=== PATIENT | female | born 1945 | race Caucasian/White ===

== ENCOUNTER 2017-01-31 05:40 | Inpatient (IN) ==
[2017-01-31] MEDS ORDERED: NS 1,000 ML ONE (05:44)
[2017-01-31] MEDS ORDERED: DIPRIVAN 1% 1,000 MG/100 ML BOTTLE ONE (05:48)
[2017-01-31] MEDS: DIPRIVAN 1% 1,000 MG/100 ML BOTTLE IV SCH ×7 (05:55→22:07)
[2017-01-31] MEDS ORDERED: QUELICIN ONE (05:58)
[2017-01-31] MEDS ORDERED: AMIDATE ONE (05:59)
[2017-01-31] MEDS ORDERED: AMIDATE IV ONE (06:03)
[2017-01-31] MEDS ORDERED: QUELICIN IV ONE (06:04)
[2017-01-31] MEDS ORDERED: MERREM 1 GM in NS 50 ML IV ONE (06:34)
[2017-01-31] MEDS ORDERED: VANCOMYCIN 1 GM/NS 1 GM/250 ML IVPB IV ONE (06:35)
[2017-01-31 06:36] LABS: ALLEN TEST YES; BE 1.8 mmoll (-3.0-3.0); BLOOD TYPE ARTERIAL; DRAW SITE R RADIAL; METHB 1.7 % (0.0-1.5); O2(CT) 15.7 mL/dL (15.0-23.0); PO2(98.6) 77 mmHg (60-100); SAMPLE BLOOD; SAO2 97.3 % (95.0-100.0); SRATE 15 BPM; THB 11.9 g/dL (11.5-17.4); TVOL 500 mL; pH(98.6) 7.35 (7.35-7.45)
[2017-01-31 06:37] LABS: MODALITY VENTILATOR
[2017-01-31 06:39] LABS: PCO2(98.6) 51 mmHg (35-45)
--- NOTE | 2017-01-31 06:42 | PROVIDER DOCUMENTATION ---
HPI-Respiratory General - General Chief Complaint: Shortness of Breath Stated Complaint: RESP DISTRESS/VOMITING Time Seen by Provider: 01/31/17 06:05 Source: family, EMS Allergies/Adverse Reactions: Patient Allergies Allergy/AdvReac Type Severity Reaction Status Date / Time tazobactam sodium * Allergy Severe ABDOMINAL Verified 01/31/17 06:46 [From Zosyn] PAIN Home Medications: Home Medication List Medication Instructions Recorded Confirmed Last Taken Type Albuterol Sulfate [Ventolin Hfa] 4 puff IH 4XDAY PRN PRN 06/24/12 01/31/1709/14 History Albuterol [Albuterol Neb] 2.5 mg INH Q4H PRN PRN 06/24/12 01/31/17 09/14/16 History Carvedilol [Coreg] 3.125 mg PO QHS 06/24/12 01/31/17 09/14/16 History Folic Acid 1 mg PO DAILY 06/24/12 01/31/17 09/14/16 History Furosemide [Lasix] 40 mg PO DAILY 06/24/12 01/31/17 09/14/16 History Hydrocodone/Acetaminophen [Lortab 1 each PO Q6H PRN PRN 06/24/12 01/31/17 History 10-500 Tablet] Potassium Chloride [K-Dur] 20 meq PO DAILY 06/24/12 01/31/17 09/14/16 History Tiotropium [place] Inhaler 1 puff INH RTDAILY 06/24/12 01/31/17 09/14/16 History [Spiriva] Morphine Sulfate 15 mg PO TID 11/10/14 01/31/17 09/14/16 History Doxepin [Sinequan] 10 mg PO HS 09/15/16 01/31/17 09/14/16 History Naloxegol Oxalate [Movantik] 25 mg PO DAILY 09/15/16 01/31/17 09/14/16 History Pregabalin [Lyrica] 75 mg PO QHS 09/15/16 01/31/17 09/14/16 History Alprazolam [Alprazolam] 1.5 mg PO QHS 01/31/17 01/31/17 Unknown History Esomeprazole [Nexium] 40 mg PO DAILY 01/31/17 01/31/17 Unknown History Risedronate Sodium 150 mg PO Q30D 01/31/17 01/31/17 Unknown History Roflumilast [Daliresp] 500 mcg PO DAILY 01/31/17 01/31/17 Unknown History Sertraline [Zoloft] 100 mg PO DAILY 01/31/17 01/31/17 Unknown History Tizanidine HCl [Tizanidine HCl] 8 mg PO QHS 01/31/17 01/31/17 Unknown History - History of Present Illness-Resp Nature of Presenting Problem: 71 yo WF brought in by EMS in severe respiratory failure. I spoke with her daughter who reports that the pt has Stage 4 COPD and has been on home O2 for 8 years. She has been prone to pneumonia but has never been on a ventilator. She continues to smoke. Quality of Pain: reports: none Onset/Duration: reports: 4-6 hours ago Timing: reports: still present Exposure: reports: unknown cause Current Respiratory Medication Therapy: Initiated see nurses note, Initiated albuterol/atrovent inhale, Initiated prednisone Modifying Factors: improves with: nothing Associated Symptoms: reports: shortness of breath, sinus pain, wheezing Similar Symptoms Previously?: Yes Recently seen or treated by another doctor?: No Review of Systems - Adult - REVIEW OF SYSTEMS - ADULT ROS:: unobtainable per condition Constitutional: reports: chills, fever Eyes: reports: no symptoms reported Ears, Nose, Mouth & Throat: reports: no symptoms reported Cardiovascular: reports: no symptoms reported Respiratory: reports: see HPI, chronic cough, dyspnea on exertion, excessive sputum production, shortness of breath, wheezing Gastrointestinal: reports: no symptoms reported Genitourinary: reports: no symptoms reported Musculoskeletal: reports: no symptoms reported Integumentary: reports: no symptoms reported Neurological: reports: no symptoms reported Psychiatric: reports: no symptoms reported Endocrine: reports: no symptoms reported Hematologic/Lymphatic: reports: no symptoms reported Allergic/Immunologic: reports: no symptoms reported All Other Systems: Reviewed and Negative Past History - Adult - PAST MEDICAL HISTORY-ADULT Review of Records: reports: Nursing Assessment Review, Medications Reviewed Major Childhood Illnesses: reports: denies history Cardiovascular: reports: CHF, HTN, hyperlipidemia Respiratory: reports: COPD, sleep apnea Gastrointestinal: reports: GERD Obstetrical/Gynecological: reports: denies history Genitourinary: reports: denies history Musculoskeletal: reports: denies history Neurological: reports: denies history Endocrine/Immune: reports: denies history Other Conditions: reports: denies history - PRIOR SURGERIES/PROCEDURES Surgical/Procedure History: reports: appendectomy, hysterectomy, tonsillectomy - IMMUNIZATION STATUS Childhood Immunizations: See Nurse Assessment Flu Vaccine: See Nurse Assessment - FAMILY HISTORY Family History: reviewed, not pertinent Physical Exam-General - PHYSICAL EXAM-ADULT Initial Vital Signs Reviewed: Yes - CONSTITUTIONAL General Appearance: severe distress, obtunded - EYES Eyes: PERRL/EOMI, pink conjunctivae, conjuctival exudate - HEAD, EARS, NOSE, MOUTH & THROAT HENMT: normal ENT inspection, other (edentulous) - NECK Neck: supple - RESPIRATORY Respiratory: respiratory distress, accessory muscle use, crackles, rales, rhonchi, wheezing - CARDIOVASCULAR Cardiovascular: other (unable to auscultate) - LYMPHATIC Lymphatic: no adenopathy - MUSCULOSKELETAL Back Exam: normal inspection Peripheral Pulses: radial (R): 3+, radial (L): 3+ - SKIN Integumentary: cyanosis - NEUROLOGIC Neurologic: grossly normal Progress - PLAN OF CARE/RESULTS Progress/Plan/Lab Results: Laboratory Results - last 24 hr 01/31/17 01/31/17 01/31/17 05:40 05:40 05:40 WBC 4.48 L RBC 4.93 Hgb 13.7 Hct 44.6 MCV 90.5 MCH 27.8 MCHC 30.7 L RDW Std Deviation 14.7 H Plt Count 189 MPV 11.1 H Immature Gran % (Auto) 0.0 Neut % (Auto) 72.4 Lymph % (Auto) 24.1 Mclennan % (Auto) 3.1 Eos % (Auto) 0.4 Baso % (Auto) 0.0 Immature Gran # (Auto) 0.00 Neut # (Auto) 3.24 Lymph # (Auto) 1.08 L Mclennan # (Auto) 0.14 Eos # (Auto) 0.02 Baso # (Auto) 0.00 Segmented Neutrophils 40 L Band Neutrophils 24 H Lymphocytes 32 Monocytes 4 PT INR D-Dimer Specimen Type Sample Site pH pCO2 pO2 HCO3 Base Excess Oxyhemoglobin ABG O2 Sat (Calculated) ABG O2 Saturation ABG Carboxyhemoglobin ABG Methemoglobin [place] Test A-a O2 Difference Total Hemoglobin Lactate Blood Gas Modality Vent Mode Spontaneous Rate FiO2 % Tidal Volume PEEP Sodium 142 Potassium 3.6 Chloride 100 Carbon Dioxide 30 Anion Gap 12 BUN 13 Creatinine 0.5 Estimated GFR/1.73 m2 > 60 BUN/Creatinine Ratio 26 Glucose 112 H Calculated Osmolality 284 Calcium 9.0 Total Bilirubin 0.37 AST 11 ALT 7 L Alkaline Phosphatase 79 Troponin T [id number] Pept Total Protein 6.9 Albumin 3.9 Globulin 3.0 Albumin/Globulin Ratio 1.3 Plasma Lactate 2.5 H Urine Source Urine Color Urine Turbidity Urine pH Ur Specific [place] Urine Protein Ur Glucose (Stick) Ur Ketones (Stick) Urine Blood Urine Nitrite Urine Bilirubin Urobilinogen Dipstick Urine Leukocytes Urine WBC (Auto) Urine RBC (Auto) U Epithel Cells (Auto) Urine Bacteria (Auto) 01/31/17 01/31/17 01/31/17 05:40 05:40 05:40 WBC RBC Hgb Hct MCV MCH MCHC RDW Std Deviation Plt Count MPV Immature Gran % (Auto) Neut % (Auto) Lymph % (Auto) Mclennan % (Auto) Eos % (Auto) Baso % (Auto) Immature Gran # (Auto) Neut # (Auto) Lymph # (Auto) Mclennan # (Auto) Eos # (Auto) Baso # (Auto) Segmented Neutrophils Band Neutrophils Lymphocytes Monocytes PT INR D-Dimer 0.98 H Specimen Type Sample Site pH pCO2 pO2 HCO3 Base Excess Oxyhemoglobin ABG O2 Sat (Calculated) ABG O2 Saturation ABG Carboxyhemoglobin ABG Methemoglobin [place] Test A-a O2 Difference Total Hemoglobin Lactate Blood Gas Modality Vent Mode Spontaneous Rate FiO2 % Tidal Volume PEEP Sodium Potassium Chloride Carbon Dioxide Anion Gap BUN Creatinine Estimated GFR/1.73 m2 BUN/Creatinine Ratio Glucose Calculated Osmolality Calcium Total Bilirubin AST ALT Alkaline Phosphatase Troponin T < 0.010 Lep-S-Mbvqjzbpgfc Pept 91 Total Protein Albumin Globulin Albumin/Globulin Ratio Plasma Lactate Urine Source Urine Color Urine Turbidity Urine pH Ur Specific [place] Urine Protein Ur Glucose (Stick) Ur Ketones (Stick) Urine Blood Urine Nitrite Urine Bilirubin Urobilinogen Dipstick Urine Leukocytes Urine WBC (Auto) Urine RBC (Auto) U Epithel Cells (Auto) Urine Bacteria (Auto) 01/31/17 01/31/17 01/31/17 05:40 06:01 06:09 WBC RBC Hgb Hct MCV MCH MCHC RDW Std Deviation Plt Count MPV Immature Gran % (Auto) Neut % (Auto) Lymph % (Auto) Mclennan % (Auto) Eos % (Auto) Baso % (Auto) Immature Gran # (Auto) Neut # (Auto) Lymph # (Auto) Mclennan # (Auto) Eos # (Auto) Baso # (Auto) Segmented Neutrophils Band Neutrophils Lymphocytes Monocytes PT 10.2 INR 0.97 D-Dimer Specimen Type ARTERIAL Sample Site R RADIAL pH 7.35 pCO2 51 H* pO2 77 HCO3 26.2 H Base Excess 1.8 Oxyhemoglobin 93.2 L ABG O2 Sat (Calculated) 15.7 ABG O2 Saturation 97.3 ABG Carboxyhemoglobin 2.40 ABG Methemoglobin 1.7 H [place] Test YES A-a O2 Difference 572.0 Total Hemoglobin 11.9 Lactate 1.90 Blood Gas Modality VENTILATOR Vent Mode A/C Spontaneous Rate 15 FiO2 % 100.0 Tidal Volume 500 PEEP 10.0 Sodium Potassium Chloride Carbon Dioxide Anion Gap BUN Creatinine Estimated GFR/1.73 m2 BUN/Creatinine Ratio Glucose Calculated Osmolality Calcium Total Bilirubin AST ALT Alkaline Phosphatase Troponin T Peh-U-Pdgsjrxbdzv Pept Total Protein Albumin Globulin Albumin/Globulin Ratio Plasma Lactate Urine Source CLEAN CATCH Urine Color YELLOW Urine Turbidity CLEAR Urine pH 6.0 Ur Specific [place] 1.021 Urine Protein NEGATIVE Ur Glucose (Stick) NEGATIVE Ur Ketones (Stick) NEGATIVE Urine Blood NEGATIVE Urine Nitrite NEGATIVE Urine Bilirubin NEGATIVE Urobilinogen Dipstick NORMAL Urine Leukocytes NEGATIVE Urine WBC (Auto) <10 Urine RBC (Auto) <10 U Epithel Cells (Auto) <10 Urine Bacteria (Auto) NEGATIVE Orders Category Date Time Status Admit - [facility] Routine AdmDCTranf 01/31/17 08:28 Ordered Activity - Strict Bedrest ORDERED Care 01/31/17 08:28 Active DVT/PE Risk Assess/Protocol [QM] ORDERED Care 01/31/17 08:28 Completed Elevate Head of Bed DIRECTED Care 01/31/17 08:28 Active Paez Cath Insertion ORDERED Care 01/31/17 08:28 Completed Intake and Output-Strict Q 8-HR ASSESS Care 01/31/17 08:28 Active Nursing- Assist w/ IS as order ORDERED Care 01/31/17 08:28 Completed Nursing- MD Consult Request ROUTINE Care 01/31/17 08:28 Completed Turn, Cough and Deep Breathe Q2HR Care 01/31/17 08:28 Completed Vital Signs Order ROUTINE Care 01/31/17 08:28 Completed Physician/Provider Consults Routine Cons 01/31/17 08:28 Ordered NPO Diet 01/31/17 07:43 Active CHEST-PORTABLE [RAD] DAILY Exams 02/01/17 06:00 Ordered CHEST-PORTABLE [RAD] DAILY Exams 02/02/17 06:00 Ordered CHEST-PORTABLE [RAD] Stat Exams 01/31/17 05:49 Completed ABG [RESP] DAILY Lab 02/01/17 06:00 Ordered ABG [RESP] DAILY Lab 02/02/17 06:00 Ordered ABG [RESP] Routine Lab 01/31/17 06:09 Completed BASIC METABOLIC PANEL [CHEM] DAILY Lab 02/01/17 06:00 Ordered BASIC METABOLIC PANEL [CHEM] DAILY Lab 02/02/17 06:00 Ordered BASIC METABOLIC PANEL [CHEM] DAILY Lab 02/03/17 06:00 Ordered BLOOD CULTURE [BLDCUL] Stat Lab 01/31/17 07:15 Results CBC WITH ELECTRONIC DIFF [HEME] Stat Lab 01/31/17 05:40 Completed CBC WITH NO DIFF [HEME] DAILY Lab 02/01/17 06:00 Ordered CBC WITH NO DIFF [HEME] DAILY Lab 02/02/17 06:00 Ordered CBC WITH NO DIFF [HEME] DAILY Lab 02/03/17 06:00 Ordered COMPREHENSIVE METABOLIC PANEL [CHEM] Stat Lab 01/31/17 05:40 Completed D-DIMER [CHEM] Stat Lab 01/31/17 05:40 Completed LACTATE, PLASMA [CHEM] Stat Lab 01/31/17 05:40 Completed LACTATE, PLASMA [CHEM] Timed Lab 01/31/17 09:37 Completed LEGIONELLA AG URINE [[place]] Stat Lab 01/31/17 07:51 Received MAGNESIUM [CHEM] DAILY Lab 02/02/17 06:00 Ordered MAGNESIUM [CHEM] DAILY Lab 02/03/17 06:00 Ordered MAGNESIUM [CHEM] DAILY Lab 02/04/17 06:00 Ordered PRO B-NATRIURETIC PEPTIDE Stat Lab 01/31/17 05:40 Completed PROTIME WITH INR [COAG] Stat Lab 01/31/17 05:40 Completed SPUTUM CULTURE WITH GRAM STAIN [RM] Routine Lab 01/31/17 08:58 Results STREP PNEUMO AG URINE [[place]] Stat Lab 01/31/17 07:51 Received TROPONIN T Stat Lab 01/31/17 05:40 Completed UA NIMS W/REFLEX CULT [URINALYSIS] Stat Lab 01/31/17 06:01 Completed 0.9% Sodium Chloride Inj [Ns] 1,000 ml Med 01/31/17 05:44 Discontinued .ROUTE As Directed 0.9% Sodium Chloride Inj [Ns] 1,000 ml Med 01/31/17 06:57 Discontinued IV 999 mls/hr Acetaminophen [Tylenol] Med 01/31/17 07:39 Discontinued 650 mg GA NOW ONE Albuterol 2.5MG/Ipratrop 0.5MG [Duoneb (A & A)] Med 01/31/17 06:50 Discontinued 3 ml INH NOW ONE Enoxaparin [Lovenox] Med 01/31/17 08:28 Active 40 mg SUBQ Q24H Etomidate [Amidate] Med 01/31/17 06:03 Discontinued 20 mg IV NOW ONE Etomidate [Amidate] Med 01/31/17 05:59 Discontinued 40 mg .ROUTE .STK-MED ONE Levofloxacin 750 mg/D5w [Levaquin 750 mg/D5w] Med 01/31/17 07:30 Active 750 mg in 150 ml IV Q24H Meropenem [Merrem] 1 gm Med 01/31/17 06:34 Discontinued 0.9% Sodium Chloride Inj [Ns] 50 ml IV NOW Meropenem [Merrem] 1 gm Med 01/31/17 08:28 Active 0.9% Sodium Chloride Inj [Ns] 50 ml IV Q8H Pharmacy Order [Vancomycin IV Per Pharmacy] Med 01/31/17 08:28 Active 1 each MISC DIRECTED Propofol [Diprivan 1%] Med 01/31/17 05:48 Discontinued 1,000 mg in 100 ml .ROUTE As Directed Propofol [Diprivan 1%] Med 01/31/17 06:07 Active 1,000 mg in 100 ml IV As Directed Succinylcholine [Quelicin] Med 01/31/17 06:04 Discontinued 125 mg IV NOW ONE Succinylcholine [Quelicin] Med 01/31/17 05:58 Discontinued 200 mg .ROUTE .STK-MED ONE Vancomycin 1 gm/Ns Med 01/31/17 06:35 Discontinued 1 gm in 250 ml IV NOW Aerosol Treatments Routine Oth 01/31/17 06:51 Completed Aerosol Treatments Routine Oth 01/31/17 08:28 Completed Aerosol Treatments Stat Oth 01/31/17 06:51 Completed Incentive Spirometer Routine Oth 01/31/17 08:28 Completed Pulse Oximetry Routine Ot 01/31/17 08:28 Completed Telemetry [OM.EQ] Routine Ot 01/31/17 08:28 Active Transfer/Admit Order [TRANSFER] Routine Transfer 01/31/17 07:40 Completed Result Diagrams: 01/31/17 05:40 01/31/17 05:40 - XRAY 1 XRAY Study: Chest Impression: Abnormal, See EMR Report (Good tube pleacement. Dense pneumonia involving almost the entire rt lung) - CONSULTS/PCP/HOSPITALIST Notification #1 *Consult/PCP/Hospitalist*: Dr Walter Time Discussed: 07:23 Consult Disposition: Admit - CHANGE OF SHIFT REPORT (ED Provider) Items Pending: Labs, Other (abg) Procedures - INTUBATION Time of Intubation: 05:40 Mallampati Class: 1 Intubation Method: orotracheal Equipment: ETT Tube Size (cm): 7.5 Pretreated with 100% Oxygen?: Yes Breath Sounds after Intubation: equal ETT Primary Tube Confirmation: Capnometry CO2 Change, Direct Visualization, Chest Rise and Fall, Tube placement verified on XRAY Intubation Complications: no complications Vent Settings: See Respiratory Therapy Notes Departure - Departure Time of Disposition Decision: 07:20 DIAGNOSIS: Respiratory failure requiring intubation Disposition: ADMITTED INPATIENT 09 Certified Medical Emergency: Emergent Condition: Critical - Critical Care Note This patient required my direct & personal management of CC.: Yes Total Time (mins): 75 Critical Care Statement: This patient required my direct personal management to treat or rule out processes, the absence of which, could potentiallly result in sudden, clinically significant life or limb threatening deterioration.
[2017-01-31 06:46] LABS: MANUAL DIFF NEEDED? NO
[2017-01-31 06:47] LABS: URINE CULTURE NEEDED? NO; URINE MICRO REVIEW NEEDED? NO; URINE SOURCE CLEAN CATCH
[2017-01-31] MEDS ORDERED: DUONEB (A & A) INH ONE (06:50)
[2017-01-31 06:56] LABS: BILIRUBIN URINE NEGATIVE (NEGATIVE); BLOOD URINE NEGATIVE (NEGATIVE); COLOR YELLOW; GLUCOSE URINE NEGATIVE (NEGATIVE); LEUKOCYTES URINE NEGATIVE (NEGATIVE); NITRITE URINE NEGATIVE (NEGATIVE); PROTEIN URINE NEGATIVE (NEGATIVE); SP GRAVITY URINE 1.021; TURBIDITY URINE CLEAR (CLEAR); UROBILINOGEN URINE NORMAL (NORMAL)
[2017-01-31 06:56] LABS: EOS# 0.02 X1000 (0.0-0.7); EOS% 0.4 % (0.0-10.0); HEMATOCRIT 44.6 % (37.0-47.0); HEMOGLOBIN 13.7 g/dL (12.0-16.0); LYMPH# 1.08 X1000 (1.2-3.4); LYMPH% 24.1 % (20.5-51.1); MCH 27.8 PG (27-31); MCHC 30.7 g/dL (33-37); MCV 90.5 FL (81-99); MONO# 0.14 X1000 (0.11-0.59); MONO% 3.1 % (1.7-9.3); MPV 11.1 FL (7.4-10.4); NEUT% 72.4 % (42.2-75.2); PLT 189 X1000 (130-400); RBC 4.93 XMIL (4.2-5.4)
[2017-01-31] MEDS ORDERED: NS 1,000 ML IV ONE (06:57)
[2017-01-31 06:58] LABS: UR EPITHELIAL CELLS <10 /HPF (<10); URINE BACTERIA NEGATIVE /HPF; URINE RBC <10 /HPF (<10); URINE WBC <10 /HPF (<10)
[2017-01-31 07:07] LABS: INR 0.97; PROTIME 10.2 Seconds (9.2-11.7)
[2017-01-31 07:14] LABS: AGAP 12; ALBUMIN 3.9 g/dL (3.5-5.0); ALKALINE PHOSPHATASE 79 U/L (32-104); BUN 13 mg/dL (8-22); CHLORIDE 100 mmol/L (98-107); COSMO 284; GOT 11 U/L (10-30); GPT 7 U/L (10-36); POTASSIUM 3.6 mmol/L (3.5-5.1); SODIUM 142 mmol/L (136-145); TCO2 30 mmol/L (25-35); TOTAL BILIRUBIN 0.37 mg/dL (0.20-1.00); TOTAL PROTEIN 6.9 g/dL (6.3-8.3)
[2017-01-31] MEDS ORDERED: TYLENOL PR ONE (07:39)
[2017-01-31] MEDS ORDERED: VANCOMYCIN IV PER PHARMACY MISC SCH (08:28)
[2017-01-31] MEDS ORDERED: DUONEB (A & A) INH PRN (08:28)
[2017-01-31 08:32] LABS: BANDS 24 % (0-1); LYMPHS 32 % (21-51); MONO 4 % (1-9)
--- NOTE | 2017-01-31 08:54 | Diag Imaging Result Document ---
PROCEDURE NAME: CHEST-PORTABLE - 01/31/2017 SINGLE FRONTAL RADIOGRAPH OF THE CHEST: COMPARISON: 01/21/2017. FINDINGS: There has been interval placement of an ET tube. The tip projects over the trachea and above the dawson at about the T5 level. Since the previous study, there has been development of diffuse dense infiltrate throughout the right lung. Mild left basilar infiltrate versus atelectasis is approximately stable. There is an NG tube in place with the tip projecting below the diaphragm and out of the field of view, assumed to be in the stomach. Cardiac silhouette is essentially stable. IMPRESSION: 1. Interval intubation and placement of NG tube as described. 2. Interval development of a dense consolidation throughout the entire right lung. 3. Essentially stable milder opacity at the left lung base.
[2017-01-31] MEDS: PROTONIX IV SCH (09:44)
[2017-01-31] MEDS: LOVENOX SUBQ SCH (09:44)
[2017-01-31] MEDS: SODIUM CHLORIDE 0.9% INJ SCH (09:44)
[2017-01-31] MEDS: MERREM 1 GM in NS 50 ML IV SCH ×3 (09:44→23:33)
[2017-01-31] MEDS: LEVAQUIN 750 MG/D5W 750 MG/150 ML IVPB IV SCH (09:44)
[2017-01-31] MEDS: NICODERM PATCH TD SCH (09:44)
[2017-01-31] MEDS: ZOLOFT NG SCH (09:46)
[2017-01-31] MEDS: LEVOPHED 8 MG in D5 1/2 NS 250 ML IV SCH ×2 (11:10→19:22)
[2017-01-31] MEDS: DUONEB (A & A) INH SCH ×4 (11:25→23:05)
--- NOTE | 2017-01-31 12:05 | HISTORY AND PHYSICAL ---
PRIMARY CARE PHYSICIAN: Dr. Guido Black. CHIEF COMPLAINT: Acute respiratory failure. HISTORY OF PRESENT ILLNESS: Mrs. Bermudez is a 71-year-old female with a history of COPD, noncompliant with oxygen, continued nicotine dependence, anxiety and depression , and osteoporosis, who presents to the ER today in acute respiratory failure. The patient is intubated and sedated at this time and is unable to give any type of history. Her family who is at the bedside states that a little over a week ago. She went to her PCP and was prescribed antibiotics for "rattling in the chest." However, she has been doing fine over the past week, essentially in her normal state of health. Yesterday she went shopping and had no real complaints. This morning, early around 1 a.m. she woke up gasping for air and was confused per family report. They called 911 and the patient was brought to the ER. Apparently O2 saturations initially were anywhere from 50-70. She was promptly intubated. X-ray of the chest showed complete whiteout of the right lying, highly suspicious for pneumonia. Interestingly, her laboratory data is largely unremarkable. She does have a very mildly elevated lactic acid at 2.5 and her white count is a little bit low. Otherwise nothing acute. She does have a fever. So given her laboratory data and diagnostic criteria, she meets criteria for severe sepsis. Currently, her blood pressure is 90/56 and she is receiving IV fluids. However, if she continues to drop her blood pressure we may need to add pressors. PAST MEDICAL HISTORY: 1. COPD. 2. Noncompliance with oxygen therapy. 3. Sleep apnea, noncompliant with CPAP. 4. Continued nicotine dependence. 5. Anxiety and depression. 6. Osteoporosis. 7. Chronic pain. 8. GERD. 9. Question of congestive heart failure but a normal echo was noted in August of last year. PAST SURGICAL HISTORY: Hysterectomy, appendectomy. SOCIAL HISTORY: Patient continues to smoke, is unclear exactly how much but she is also using electronic cigarette. There is no history of alcohol or illicit drug use. She lives at home with her and daughter. REVIEW OF SYSTEMS: Unable to obtain. ALLERGIES: Zosyn. HOME MEDICATIONS: Currently being compiled. PHYSICAL EXAMINATION: VITAL SIGNS: Blood pressure is 90/56, heart rate is 73, respiratory rate 18, O2 saturations 92% on 100% mechanical ventilation, temperature is 102 degrees Fahrenheit. GENERAL: This is a well-developed, well-nourished, female, lying in hospital bed, intubated and sedated. NEUROLOGIC: The patient is intubated and sedated. HEENT: Head is atraumatic and normocephalic. Her pupils are equal, round, and reactive to light. Oral mucosa is moist. Trachea is midline. ET and NG tube are noted. NECK: Supple. CHEST: Very diminished throughout, right greater than left, with rhonchi heard over the entirety of the right lung. CV: Regular rate and rhythm. S1, S2 is noted. No murmurs, gallops, clicks, or rubs. GI: Soft and nondistended. Bowel sounds are hypoactive. EXTREMITIES: Without edema, clubbing, or cyanosis. Pedal pulses are 1+ bilaterally. There is no edema, clubbing, or cyanosis. DIAGNOSTIC DATA: Chest x-ray shows whiteout of the right lung compatible with patchy infiltrate/pneumonia. WBC is 4.4, hemoglobin 13.7, hematocrit 44.6, platelet count 189,000. PT 10.2, INR 0.97. D-dimer 0.98. ABG on 100% mechanical ventilation, pH 7.35, CO2 51, O2 77, bicarb 26. Sodium 142, potassium 3.6, chloride 100, CO2 30, anion gap 12, BUN 13, creatinine 0.5, glucose 112. LFTs within normal limits. Troponin and proBNP are negative. Lactic acid 2.5. UA is negative for acute process. ASSESSMENT AND PLAN: 1. Acute hypoxic respiratory failure: Secondary to severe pneumonia. The patient is intubated and sedated. We will consult Dr. Garcia for vent management. She will be going to the ICU where we will continue with broad-spectrum antibiotics, breathing treatments , and oxygen, as well as aggressive pulmonary toilet. 2. Sepsis: Patient meets criteria with fever, leukopenia, lactic acidosis, and source of pneumonia. We will continue with broad-spectrum antibiotics. Continue with IV fluids and IV pressors as needed. We will trend her lactic acidosis until less than 2. 3. Community-acquired pneumonia: As above. 4. Chronic obstructive pulmonary disease: We will continue treatment as outlined above and we will hold off on steroids for now. Dr. Garcia with pulmonary has been consulted. 5. We will check daily ABGs and chest x-rays. Add Lovenox for deep vein thrombosis prophylaxis and Protonix for gastrointestinal prophylaxis. Further recommendations to follow. CRITICAL CARE TIME: With this patient is 45 minutes. Dictated by BENY Nicole for Kash Walter MD cc: BENY Nicole MD Seen and examined the patient. I agree with the above plan. Triple antibiotic therapy Vent Support Discussed care with the Sister who was at the bedside at the time I saw the patient in the ICU. Poor prognosis MTDD
--- NOTE | 2017-01-31 14:25 | CONSULTATION ---
DATE OF CONSULTATION: 01/31/2017 PRIMARY CARE PHYSICIAN: Guido Black MD CONSULTING PHYSICIAN: Hospitalist Alec Radford REASON FOR CONSULTATION: Respiratory failure and pneumonia. Pulmonary critical care management. IMPRESSION: 1. Acute on chronic respiratory failure. 2. Right lung consolidated pneumonia. 3. Septic shock secondary to above. 4. Chronic obstructive pulmonary disease. 5. Tobacco abuse. 6. History of anxiety, depression and chronic pain syndrome. Opiate dependent. 7. Obstructive sleep apnea, on BiPAP at home. RECOMMENDATIONS: Ms. Bermudez will continue to be monitored closely in the ICU on mechanical ventilation. We will continue to monitor her cultures as well as give her broad spectrum antibiotics. Continue inhaled beta agonist. She is on appropriate DVT prophylaxis and GI prophylaxis. Wean her oxygenation as tolerated. We will follow along with you closely. HISTORY OF PRESENT ILLNESS: This is a 71-year-old female who apparently came into the emergency room in acute respiratory failure. She was promptly intubated with saturations apparently being in the 50s to 70s at home. Per her family report and the records, she states she was sick over a week ago and went to her primary care physician for rattling in her chest. She is on home oxygen and home bronchodilators as well as home BiPAP. She then apparently became confused and had shortness of breath and EMS was called as mentioned. She now is hypotensive in the ICU. She is responsive, even on propofol drip. She has IV hydration as well as antibiotics and is oxygenating on 100% oxygen on mechanical ventilation. PAST MEDICAL HISTORY: 1. COPD, noncompliance with oxygen therapy. 2. Tobacco abuse. 3. Chronic pain. 4. Osteoporosis. 5. GERD. 6. Anxiety and depression. 7. Obstructive sleep apnea and noncompliant with CPAP at home. ALLERGIES: Zosyn. HOME MEDICATIONS: Albuterol 4 times a day, nebulizers 4 times a day, Coreg 3.125 daily, folic acid 1 mg daily, Lasix 40 mg daily, hydrocodone 10 one tablet approximately 5 times a day, Prilosec 20 mg b.i.d., pravastatin 40 mg nightly at bedtime, potassium 20 mEq daily, Spiriva 1 inhaled capsule daily, morphine 15 mg p.o. t.i.d., Zoloft 100 mg daily, Doxepin 10 mg nightly at bedtime, gabapentin 600 mg t.i.d., Boniva 150 mg every 30 days. PAST SURGICAL HISTORY: She has had an appendectomy and a hysterectomy. SOCIAL HISTORY: She lives with her and daughter at home. She continues to smoke cigarettes as well as electronic cigarettes. No alcohol. She is on chronic pain medications as mentioned. REVIEW OF SYSTEMS: Unable to obtain. The patient is sedated on the ventilator. PHYSICAL EXAMINATION: She is arousable and follows commands, on the ventilator as mentioned. She has a temperature of 99.3, pulse 80, blood pressure 106/67, respiratory rate 24. HEENT: She is atraumatic and normocephalic. PERRLA. Pupils are 5+ and a brisk reaction. Oral mucosa is without erythema. There is an ET tube in position. There is an NG tube in. The neck is supple. No JVD. No lymphadenopathy. Chest: Bilateral equal breath sounds with scattered rhonchi on the right chest. Clear on the left. Cardiac: Regular rate and rhythm without appreciable murmur, gallop or rub. Abdomen: Soft, nontender. Positive bowel sounds x4. Extremities revealed no cyanosis, clubbing or edema. There are 2+ pedal pulses and 2+ radial pulses. Skin: Warm and dry. Neurologic: She does arouse off propofol and moves all 4. DIAGNOSTIC DATA: Chest radiograph reviewed shows the ET tube in position. There is a right lung consolidation. NG tube in position. No pneumothorax. The ABG shows pH of 7.35, CO2 of 51, paO2 of 77 on PRVC rate of 15 and 100%. Sodium is 142, potassium 3.6, chloride 100, CO2 of 30, BUN of 13, creatinine 0.5, glucose 112. The white count is 4.4, hemoglobin 13.7, hematocrit 44.6 and platelets 189. She had a negative flu A and B swab. The blood cultures and sputum cultures are pending. Her rhythm at the bedside is normal sinus rhythm. PT is 10.2. INR is 0.9. D-dimer is 0.9. UA is negative. Troponin less than 0.01. ProBNP is 91. Albumin is 3.9, lactate 2.7. This is a merely a scribe of Dr. Nam Garcia's assessment and plan of care. We will follow along with you closely. This likely could represent community acquired versus an aspiration pneumonia with her high amount of narcotics and sleep apnea noncompliance. Dictated by BENY Kraft for Nam Garcia MD cc: Nam Garcia MD
[2017-01-31] MEDS: NS 1,000 ML IV SCH ×2 (15:02→23:33)
[2017-01-31] MEDS: TYLENOL PO PRN ×2 (15:27→19:24)
[2017-01-31] MEDS: XANAX PO SCH (20:33)
[2017-02-01] MEDS: TYLENOL PO PRN ×2 (00:33→19:59)
[2017-02-01] MEDS: DIPRIVAN 1% 1,000 MG/100 ML BOTTLE IV SCH ×7 (02:08→23:38)
[2017-02-01] MEDS: DUONEB (A & A) INH SCH ×6 (03:48→23:05)
[2017-02-01 04:45] LABS: ALLEN TEST YES; BE 0.1 mmoll (-3.0-3.0); BLOOD TYPE ARTERIAL; DRAW SITE R RADIAL; METHB 1.6 % (0.0-1.5); MODALITY VENTILATOR; O2(CT) 16.5 mL/dL (15.0-23.0); PCO2(98.6) 49 mmHg (35-45); PO2(98.6) 104 mmHg (60-100); SAMPLE BLOOD; SAO2 98.9 % (95.0-100.0); SRATE 15 BPM; THB 12.1 g/dL (11.5-17.4); TVOL 500 mL; pH(98.6) 7.34 (7.35-7.45)
[2017-02-01 06:15] LABS: HEMATOCRIT 40.8 % (37.0-47.0); HEMOGLOBIN 12.8 g/dL (12.0-16.0); MCH 28.3 PG (27-31); MCHC 31.4 g/dL (33-37); MCV 90.1 FL (81-99); MPV 11.4 FL (7.4-10.4); RBC 4.53 XMIL (4.2-5.4)
[2017-02-01 06:17] LABS: AGAP 15; BUN 15 mg/dL (8-22); CALCIUM 7.8 mg/dL (8.8-10.2); CHLORIDE 108 mmol/L (98-107); COSMO 291; POTASSIUM 3.1 mmol/L (3.5-5.1); SODIUM 146 mmol/L (136-145); TCO2 23 mmol/L (25-35)
[2017-02-01] MEDS: VANCOMYCIN 1 GM/NS 1 GM/250 ML IVPB IV SCH (08:09)
[2017-02-01] MEDS: LEVAQUIN 750 MG/D5W 750 MG/150 ML IVPB IV SCH (08:09)
[2017-02-01] MEDS: NS 1,000 ML IV SCH (08:09)
[2017-02-01] MEDS: MERREM 1 GM in NS 50 ML IV SCH ×2 (08:09→17:01)
[2017-02-01] MEDS: NICODERM PATCH TD SCH (08:10)
[2017-02-01] MEDS: ZOLOFT NG SCH (08:10)
[2017-02-01] MEDS: LOVENOX SUBQ SCH (08:10)
[2017-02-01] MEDS: PROTONIX IV SCH (08:10)
[2017-02-01] MEDS: SODIUM CHLORIDE 0.9% INJ SCH (08:10)
[2017-02-01] MEDS: D5 1/2 NS 1,000 ML IV SCH ×2 (09:37→23:39)
--- NOTE | 2017-02-01 09:48 | Diag Imaging Result Document ---
PROCEDURE NAME: CHEST-PORTABLE - 02/01/2017 PORTABLE CHEST X-RAY, 02/01/2017: COMPARISON: 01/31/2017. FINDINGS: Stable endotracheal tube and nasogastric tube in good position. There is significant improvement in the dense alveolar infiltrate throughout the right lung. The left lung remains essentially clear. Stable significant cardiomegaly. IMPRESSION: Improvement from prior.
--- NOTE | 2017-02-01 19:24 | PROGRESS NOTE ---
DATE: 02/01/2017 SUBJECTIVE: Today Ms. Bermudez continues to be critical. She is under the ventilator. I was able to say speak with the son who uses a front wheel walker. OBJECTIVE: Vital signs: Blood pressure is 132/83, pulse of 98, respirations 20 , temperature 97.5. Patient was saturating 98% on the ventilator. General: Ms. Bermudez is a 71-year-old female. She is in bed, under the vent, not distressed. HEENT: Mucosa is pink and moist. Anicteric. Acyanotic. Neck: Supple. Chest: Air entry is bilaterally reduced. There is transmitted sound from the ventilator. There are some crackles, more on the right lateral aspect of the lung warner. Abdomen: Soft. Extremities: No pedal edema. [employer] : Patient is intubated and sedated but pupils equal and they are reactive to light and patient has very good cough reflex. LABORATORY DATA: WBC is 11.5, hemoglobin is 12.8, platelet count of 162,000. Chemistry is reviewed. Sodium is 146, potassium is 3.1, chloride is 108, bicarb is 23. Lactate plasma is 1.7. IMAGING: Chest x-ray which was done today shows some improvement from prior. ASSESSMENT: 1. Acute hypoxemic respiratory failure patient continues to be on the vent. 2. Severe right side pneumonia. 3. Sepsis secondary to pneumonia. 4. History of chronic obstructive pulmonary disease. 5. History of narcotic abuse. 6. Mild hypokalemia. We will replace this. 7. Hyperchloremia. I think is due to the baseline fluid fro hydration. I will change this to D5 half-normal saline at 75 mL/hour and pay critical attention to her cardiopulmonary status. We will recheck on her labs in the morning to make the pertinent adjustments. I will also go ahead and consult Infectious Disease to evaluate and give us some guidance on her antibiotic use. For now, patient is on levofloxacin 750 daily. Today is day 2. Vancomycin, today is day 2 and meropenem, today is day 2. We will be pending on Infectious Disease final recommendations on this. Critical time spent 45 minutes. cc: MD JENIFER Silvestre
[2017-02-01] MEDS: XANAX PO SCH (20:00)
--- NOTE | 2017-02-01 20:33 | CONSULTATION ---
DATE OF CONSULTATION: 02/01/2017 CONCLUSION: The patient has underlying very severe COPD and is noncompliant. She is admitted to the hospital with a severe a right lung pneumonia. Fortunately on today's x-ray it appears that the infiltrate is improving. RECOMMENDATIONS: I agree with the decision to treat the patient with broad-spectrum antibiotic coverage that she is on right now. I also agree with getting the pneumococcal and Legionella urinary antigens. I have ordered immunoglobulin levels. DISCUSSION: The patient is intubated and unable to supply a history. The information I got was taken mainly from a review of the data in the computer. The patient was admitted to the hospital with acute respiratory failure. She is intubated and sedated now. Her CBC shows a white count of 1150, hemoglobin 12.8, platelet count 162,000. Blood gases show a pH of 7.34, a PO2 of 104, pCO2 of 49. Creatinine is 0.6. GFR is greater than 60. Sputum cultures are growing thus far normal aubrie. A swab for influenza is negative. Urinalysis showed no white cells or bacteria. Liver function studies are normal. The patient's chest x-ray today shows improvement in the right lung infiltrate. The patient's creatinine today is 0.6 with a GFR of greater than 60. PATIENT'S PAST MEDICAL HISTORY: Positive for COPD, noncompliance with oxygen therapy, sleep apnea with noncompliance with CPAP, continued cigarette smoking, anxiety and depression, osteoporosis, chronic pain, gastroesophageal reflux disease, possible congestive heart failure, although in July of last year she had a normal echocardiogram. PAST SURGICAL HISTORY: Positive for labor and delivery, hysterectomy and appendectomy. SOCIAL HISTORY: The patient smokes cigarettes. She does not drink alcoholic beverages or abuse drugs. She lives at home with her and daughter. ALLERGIES: She is allergic to Zosyn. HOME MEDICATIONS INCLUDE THE FOLLOWING: Tizanidine, Zoloft, Spiriva inhaler, Daliresp, risedronate, Lyrica, potassium, Movantik, morphine, hydrocodone, Lasix. Folic acid, Nexium, Sinequan, Coreg, alprazolam, albuterol and Ventolin inhalers. PHYSICAL EXAMINATION: Vital Signs: Temperature is 98.6 degrees, pulse 95, respirations 22, blood pressure 124/82. The patient weighs 153 pounds. Generally: This is a chronically ill- appearing, elderly female. She is intubated and sedated. Head, eyes, ears, nose, and throat: Orotracheal tube is in place. Neck: No meningismus. Thorax: Patient has an increased AP diameter of the chest. Lungs: Clear to auscultation, except for few rales heard on the right side. The left side was clear. Cardiovascular: Heart rate is regular. Abdomen: Soft and nontender. Neurologic: Patient is obtunded. She is sedated. There is no tremor. Integument: No rash noted. Thank you for the consult. cc: John Garcia MD
[2017-02-02] MEDS: MERREM 1 GM in NS 50 ML IV SCH ×3 (01:01→15:28)
[2017-02-02] MEDS: DUONEB (A & A) INH SCH ×6 (02:50→23:00)
[2017-02-02 04:37] LABS: ALLEN TEST YES; BE 3.9 mmoll (-3.0-3.0); BLOOD TYPE ARTERIAL; DRAW SITE R RADIAL; METHB 1.9 % (0.0-1.5); PCO2(98.6) 42 mmHg (35-45); PO2(98.6) 73 mmHg (60-100); SAMPLE BLOOD; SAO2 97.1 % (95.0-100.0); SRATE 15 BPM; THB 11.3 g/dL (11.5-17.4); TVOL 500 mL; pH(98.6) 7.44 (7.35-7.45)
[2017-02-02 04:38] LABS: MODALITY VENTILATOR
[2017-02-02] MEDS: DIPRIVAN 1% 1,000 MG/100 ML BOTTLE IV SCH ×4 (04:40→20:05)
[2017-02-02 04:58] LABS: HEMATOCRIT 34.8 % (37.0-47.0); HEMOGLOBIN 10.6 g/dL (12.0-16.0); MCH 27.5 PG (27-31); MCHC 30.5 g/dL (33-37); MCV 90.2 FL (81-99); MPV 11.7 FL (7.4-10.4); RBC 3.86 XMIL (4.2-5.4)
[2017-02-02 05:07] LABS: AGAP 9; BUN 18 mg/dL (8-22); CALCIUM 7.5 mg/dL (8.8-10.2); CHLORIDE 105 mmol/L (98-107); COSMO 284; POTASSIUM 2.6 mmol/L (3.5-5.1); SODIUM 140 mmol/L (136-145); TCO2 26 mmol/L (25-35)
--- NOTE | 2017-02-02 07:26 | Diag Imaging Result Document ---
PROCEDURE NAME: CHEST-PORTABLE - 02/02/2017 SINGLE FRONTAL RADIOGRAPH OF THE CHEST: COMPARISON: 02/01/2017. FINDINGS: Tracheostomy tube is in stable position. NG tube projects below the diaphragm and out of the field of view. Inspiration is suboptimal. Consolidation throughout the right lung appears to be approximately stable given differences in positioning and inspiration. There is now mild atelectasis at the left lung base. Cardiac silhouette is stable. IMPRESSION: Development of mild left basilar atelectasis. Essentially stable chest, otherwise.
[2017-02-02] MEDS: VANCOMYCIN 1 GM/NS 1 GM/250 ML IVPB IV SCH (07:40)
[2017-02-02] MEDS: SODIUM CHLORIDE 0.9% INJ SCH (07:52)
[2017-02-02] MEDS: PROTONIX IV SCH (07:52)
[2017-02-02] MEDS: LEVAQUIN 750 MG/D5W 750 MG/150 ML IVPB IV SCH (07:52)
[2017-02-02] MEDS: LOVENOX SUBQ SCH (07:52)
[2017-02-02] MEDS: POTASSIUM CHLORIDE 20% LIQUID PO SCH ×4 (07:52→20:06)
[2017-02-02] MEDS: NICODERM PATCH TD SCH (08:02)
[2017-02-02] MEDS: ZOLOFT NG SCH (08:03)
--- NOTE | 2017-02-02 08:59 | PROGRESS NOTE ---
DATE: 02/02/2017 respiratory failure. HISTORY OF PRESENT ILLNESS: A 71-year-old with a history of COPD noncompliant with oxygen she has at home. Continued nicotine dependence, anxiety, depression, and osteoporosis. Presented to the emergency room on 01/31/2017 with acute respiratory failure. Patient intubated and sedated at this time. At that time, was unable to give any history. Family is at the bedside. States that a little over a week ago, she went to her primary care physician, who is Dr. Guido Black. He prescribed an antibiotic for rattling in her chest. However, she has been doing fine over the past week, essentially in her normal state of health. The day before admission, she went shopping. Had no real complaints. The morning of admission, around 1 a.m., she woke up gasping for air and confused. Her family called 911. She was brought to the emergency room. Apparently, O2 saturations initially were anywhere from 50-70. Promptly intubated. X-ray showed complete whiteout of the right lung, highly suspicious for pneumonia. Interesting, her lab data largely unremarkable. She did have very mildly elevated lactate acid at 2.5. White blood cell count was a little bit low. Nothing else acute. PAST MEDICAL HISTORY: 1. Reviewed and again COPD, noncompliance with oxygen therapy. 2. Sleep apnea, noncompliant with CPAP. 3. Continued nicotine dependence. 4. Anxiety and depression. 5. Osteoporosis. 6. Chronic pain. 7. Gastroesophageal reflux disease. 8. Questionable congestive heart failure but there is normal echocardiogram noted in August. The patient is still intubated and appears comfortable. Remains in sinus rhythm. Her chest x- ray from this morning, development of mild left basilar atelectasis. Essentially stable chest. Consolidation throughout the right lung appears to be approximately stable given difference in position and inspiration. PHYSICAL EXAMINATION: Vital Signs: Temperature 98.3 degrees, pulse 97, respirations 23, blood pressure 125/84. HEENT: The pupils were equal and round. Lungs: Lungs are clear anterolateral. Abdomen: Soft. Skin: Warm and dry. Is and Os: Urine output was over 4 L. LAB: White count 11,170, hematocrit 34, platelet count 134,000. Sodium 142, potassium 2.6, chloride 105, BUN 18, creatinine 0.4, blood sugar 151. Plasma lactate at 1.8. ASSESSMENT AND PLAN: 1. Acute hypoxemia with respiratory failure and severe right-sided pneumonia with sepsis secondary to pneumonia. Continue present antibiotics, breathing treatments. Still on the ventilator. We will attempt to wean as able. 2. Exacerbation of chronic obstructive pulmonary disease. 3. Nicotine dependence. Aware. 4. History of narcotic use in the past. 5. Hypokalemia. Continue to supplement. 6. On review of her orders, she is on vancomycin which was started yesterday at 1 g every 24 hours. She is on Zoloft 100 mg per nasogastric tube daily, potassium chloride. She is still on a nicotine patch. She was given Levaquin 750 mg intravenous every 24 hours and meropenem as well 1 g every 8 hours. She has been given some potassium and still getting supplemental potassium at this time. cc: Keyon Weston MD
[2017-02-02] MEDS: D5 1/2 NS 1,000 ML IV SCH (11:49)
[2017-02-02] MEDS ORDERED: HALDOL IV ONE (14:49)
[2017-02-02 16:01] LABS: ALLEN TEST YES; BE 1.6 mmoll (-3.0-3.0); BLOOD TYPE ARTERIAL; DRAW SITE R RADIAL; METHB 1.8 % (0.0-1.5); O2(CT) 13.3 mL/dL (15.0-23.0); PCO2(98.6) 38 mmHg (35-45); SAMPLE BLOOD; SAO2 90.9 % (95.0-100.0); THB 10.8 g/dL (11.5-17.4); pH(98.6) 7.44 (7.35-7.45)
[2017-02-02 16:03] LABS: MODALITY VENTILATOR; PO2(98.6) 48 mmHg (60-100)
[2017-02-02] MEDS ORDERED: FLEBOGAMMA DIF 5% IV ONE ×2 (18:00→20:00)
[2017-02-02] MEDS ORDERED: FLEBOGAMMA DIF 5% 20 GM in DILUENT 400 ML IV ONE ×2 (18:00→20:00)
--- NOTE | 2017-02-02 18:37 | PROGRESS NOTE ---
DATE: 02/02/2017 PRESENT ILLNESS: The patient has methicillin-resistant Staph aureus pneumonia. We have discovered today that she has a low IgG level at 463. PRESENT MEDICATIONS: Vancomycin, meropenem and Levaquin. PHYSICAL EXAM: Vital Signs: Temperature is 99.7 degrees, pulse 97, respirations 47, blood pressure 131/76. Generally: This is an ill-appearing, elderly female. She is intubated. She looks to be under no acute distress. Lungs: Clear to auscultation. Cardiovascular: Regular heart rate. Abdomen: Soft and nontender. Neurologic: Patient is sedated. LAB AND X-RAY: The [place] [address], hemoglobin 10.6, and platelet count 134,000. Patient's blood gases show a pH of 7.44, PO2 of 48, pCO2 of 38. Creatinine 0.4. GFR is greater than 60. The IgG level was 463. IgA was 177. Sputum is growing presumptive methicillin-resistant Staph aureus. The patient's blood cultures are negative. Chest x-ray shows unchanged right consolidation and there is a small amount of atelectasis on the left side. ASSESSMENT AND PLAN: Patient has methicillin-resistant Staph aureus pneumonia. The plan is to treat with vancomycin and discontinue meropenem and Levaquin. The patient has a low IgG level. The plan is to give her a dose of immunoglobulin tonight. COMORBIDITY: The patient has multiple myeloma. She has a low IgG level. She is a cigarette smoker. She has COPD. She also has sleep apnea. She is noncompliant with certain treatment recommendations. The patient also has gastroesophageal reflux disease. cc: John Garcia MD [facility]
[2017-02-02] MEDS: XANAX PO SCH (20:05)
[2017-02-03] MEDS: D5 1/2 NS 1,000 ML IV SCH ×3 (00:02→16:24)
[2017-02-03] MEDS: TYLENOL PO PRN ×2 (00:13→21:11)
[2017-02-03] MEDS: DIPRIVAN 1% 1,000 MG/100 ML BOTTLE IV SCH ×6 (00:24→22:42)
[2017-02-03] MEDS: DUONEB (A & A) INH SCH ×6 (03:40→22:56)
[2017-02-03 04:49] LABS: ALLEN TEST YES; BE -1.1 mmoll (-3.0-3.0); BLOOD TYPE ARTERIAL; DRAW SITE R RADIAL; METHB 1.6 % (0.0-1.5); O2(CT) 21.8 mL/dL (15.0-23.0); PCO2(98.6) 42 mmHg (35-45); PO2(98.6) 69 mmHg (60-100); SAMPLE BLOOD; SAO2 96.5 % (95.0-100.0); SRATE 15 BPM; THB 16.6 g/dL (11.5-17.4); TVOL 500 mL; pH(98.6) 7.37 (7.35-7.45)
[2017-02-03 04:52] LABS: MODALITY VENTILATOR
[2017-02-03 05:23] LABS: HEMOGLOBIN 9.8 g/dL (12.0-16.0); MCH 27.8 PG (27-31); MCHC 30.6 g/dL (33-37); MCV 90.9 FL (81-99); RBC 3.52 XMIL (4.2-5.4)
[2017-02-03 05:29] LABS: AGAP 9; BUN 16 mg/dL (8-22); CALCIUM 7.8 mg/dL (8.8-10.2); CHLORIDE 106 mmol/L (98-107); COSMO 278; POTASSIUM 3.9 mmol/L (3.5-5.1); SODIUM 138 mmol/L (136-145); TCO2 23 mmol/L (25-35)
--- NOTE | 2017-02-03 06:24 | Diag Imaging Result Document ---
PROCEDURE NAME: CHEST-PORTABLE - 02/03/2017 PORTABLE CHEST: COMPARISON: Compared to 02/02/2017. FINDINGS: No change in the endotracheal tube or nasogastric tube. There are infiltrates throughout the right lung and in the left base. The lungs are slightly better aerated. The infiltrates are slightly less dense in the lung bases than on the prior study. The heart remains enlarged. IMPRESSION: Slight interval improvement.
[2017-02-03] MEDS: PROTONIX IV SCH (08:46)
[2017-02-03] MEDS: NICODERM PATCH TD SCH (08:46)
[2017-02-03] MEDS: SODIUM CHLORIDE 0.9% INJ SCH (08:46)
[2017-02-03] MEDS: LOVENOX SUBQ SCH (08:46)
[2017-02-03] MEDS: ZOLOFT NG SCH (08:47)
--- NOTE | 2017-02-03 09:15 | PROGRESS NOTE ---
DATE: 02/03/2017 SUBJECTIVE: She appears comfortable. She is still sedated, still intubated. She failed weaning trial yesterday. EXAM: Vital Signs: Today temperature 98.8, pulse 97, respirations 23, blood pressure 130/83. Eyes: Pupils were equal and round. Neck: CVP less than 6 cm. Lungs: Clear in all lung warner. Cardiovascular: Exam regular rhythm and rate without murmur or S3. Abdomen: Soft. Skin: Warm and dry. : Urine output over 4 L. LAB: White count 7920, hematocrit 32, platelet count 135,000. Sodium 138, potassium 3.9, chloride 106, bicarb 23, BUN 16, creatinine 0.3. Blood sugars 91, 151, 125. Calcium is 7.8, magnesium 2.2. Chest x-ray from this morning, slight interval improvement, no change in endotracheal tube or nasogastric tube. There are infiltrates throughout the right lung, left base. Lungs are slightly better aerated. Infiltrates are less dense in the lung bases from prior study. ASSESSMENT AND PLAN: 1. Methicillin-resistant Staph aureus pneumonia. We have discovered yesterday she has a low IgG level 463. Continue vancomycin, meropenem and Levaquin. Will give some immunoglobulin and continue vent support. Wean as able. 2. Exacerbation of chronic obstructive pulmonary disease. 3. Nicotine dependence. 4. History of narcotic use in the past. 5. Hypokalemia, was supplemented. Lab looks good. Remains in sinus rhythm. Magnesium was 2.2. Review of orders. I do not see any change. Plan is to give some immunoglobulin today and will give Flebogamma 5% 20 g in 400 mL. cc: Keyon Weston MD
[2017-02-03] MEDS: VANCOMYCIN 1 GM/NS 1 GM/250 ML IVPB IV SCH ×2 (10:19→21:29)
--- NOTE | 2017-02-03 19:52 | PROGRESS NOTE ---
DATE: 02/03/2017 HISTORY OF PRESENT ILLNESS: The patient has methicillin-resistant Staphylococcus aureus pneumonia. The patient's pneumococcal urinary antigen was positive. Therefore, the patient has a combined methicillin-resistant Staphylococcus aureus and pneumococcal pneumonia. 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 PRESENT MEDICATIONS: Patient is on vancomycin as a single agent. PHYSICAL EXAMINATION: Vital Signs: Temperature is 99.9 degrees, pulse 98, respirations 15, blood pressure 152/89. General: This is a chronically ill-appearing, elderly female. She is in intubated and sedated. Chest: The patient has an increased AP diameter of the chest. Lungs: Clear to auscultation. Cardiovascular: Heart rate is regular. Abdomen: Soft and nontender. LABORATORY AND X-RAY DATA: The chest x-ray shows improvement in the patient's infiltrates. Her blood gases show a pH of 7.37, a pO2 of 69, and a pCO2 of 42. The IgG level is 463. The patient's pneumococcal urinary antigen was positive. The 1 for Legionella was negative. The patient's CBC shows a white count of 7920, hemoglobin is 9.8, and platelet count is a 135,000. The patient's creatinine is 0.3 with a GFR of greater than 60. ASSESSMENT AND PLAN: Patient has a combined methicillin-resistant Staphylococcus aureus and pneumococcal pneumonia. She also has a low IgG level at 463. The plan is to continue vancomycin. The patient last night received gammaglobulin treatment. COMORBIDITY: She has multiple myeloma, hypogammaglobulinemia, and COPD. The patient also smokes cigarettes. She has sleep apnea and gastroesophageal reflux disease. In the past, the patient has been noncompliant with treatments. cc: John Garcia MD
[2017-02-03] MEDS: XANAX PO SCH (21:10)
[2017-02-03] MEDS: MORPHINE IV PRN (21:14)
[2017-02-04] MEDS: DUONEB (A & A) INH SCH ×6 (03:21→23:08)
[2017-02-04] MEDS: DIPRIVAN 1% 1,000 MG/100 ML BOTTLE IV SCH ×5 (03:25→22:06)
[2017-02-04] MEDS: MORPHINE IV PRN ×3 (03:45→20:12)
[2017-02-04 04:45] LABS: ALLEN TEST YES; BE 0.7 mmoll (-3.0-3.0); BLOOD TYPE ARTERIAL; DRAW SITE R RADIAL; METHB 1.7 % (0.0-1.5); O2(CT) 13.2 mL/dL (15.0-23.0); PCO2(98.6) 40 mmHg (35-45); PO2(98.6) 58 mmHg (60-100); SAMPLE BLOOD; SAO2 94.7 % (95.0-100.0); SRATE 15 BPM; THB 10.2 g/dL (11.5-17.4); TVOL 500 mL; pH(98.6) 7.41 (7.35-7.45)
[2017-02-04 04:46] LABS: MODALITY VENTILATOR
[2017-02-04] MEDS: D5 1/2 NS 1,000 ML IV SCH ×2 (06:26→18:19)
--- NOTE | 2017-02-04 06:58 | PROGRESS NOTE ---
DATE: 02/04/2017 SUBJECTIVE: Mr. Bermudez is on the ventilator and sedated. Appears comfortable. Was unable to wean yesterday. PHYSICAL EXAMINATION: Vital Signs: Remains afebrile, temperature 98.7 degrees, blood pressure 146/89, pulse 90, respirations 19. Lungs: Clear in all lung warner anterolateral. Cardiovascular Examination: Regular rhythm and rate. She is in sinus rhythm. Abdomen: Soft. Skin: Warm and dry. Is and Os: Urine output over 4 L. LAB: Reviewed from yesterday. Hematocrit stable at 32. Chemistry: Sodium 138, potassium 3.9, chloride 106, bicarb 23, BUN 16, creatinine 0.3, calcium 7.8. Chest x-ray from this morning appears to be poor inspiration still, pulmonary venous vasculature prominence in the right lower. Suspect some pleural fluid in the right lower and left lower lung. ASSESSMENT AND PLAN: 1. Patient has a methicillin-resistant Staphylococcus aureus pneumonia. Patient has a pneumococcal urinary antigen that was positive so combined methicillin-resistant Staphylococcus aureus, pneumococcal pneumonia. She has had hypogammaglobinemia with an IgG of 463. Continue vancomycin as a single agent. The plan is to get immunoglobulin. I think that was given yesterday. 2. Multiple myeloma, hypogammaglobulinemia. Aware. 3. Chronic obstructive pulmonary disease exacerbation, on the ventilator, respiratory failure. Continue to wean as able. 4. Nutrition. Getting nasogastric feeding. 5. Review of orders. The patient on vancomycin 1 g intravenous every 12, Zoloft 100 mg per nasogastric tube daily, Protonix 40 mg intravenous every 24 hours, NicoDerm patch 14 mg daily, Xanax 1.5 mg by mouth at bedtime, is on albuterol treatments. Paez catheter in place. Nasogastric tube in place, tube feeding. The patient is receiving Jevity 1.5 calories at 30 mL an hour. cc: Keyon Weston MD
--- NOTE | 2017-02-04 07:26 | Diag Imaging Result Document ---
PROCEDURE NAME: CHEST-PORTABLE - 02/04/2017 PORTABLE CHEST X-RAY: COMPARISON: 02/03/2017. FINDINGS: Stable support lines and tubes in good position. Stable cardiomegaly. There is worsening right lower lobe infiltrate and/or effusion. Stable right hilar enlargement and infiltrate throughout the right lung. The left lung is fairly clear. IMPRESSION: Worsening aeration of the right lower lobe.
[2017-02-04] MEDS: NICODERM PATCH TD SCH (08:19)
[2017-02-04] MEDS: PROTONIX IV SCH (08:19)
[2017-02-04] MEDS: SODIUM CHLORIDE 0.9% INJ SCH (08:19)
[2017-02-04] MEDS: ZOLOFT NG SCH (08:19)
[2017-02-04] MEDS: LOVENOX SUBQ SCH (08:19)
[2017-02-04] MEDS: VANCOMYCIN 1 GM/NS 1 GM/250 ML IVPB IV SCH ×2 (09:46→22:06)
--- NOTE | 2017-02-04 18:13 | PROGRESS NOTE ---
DATE: 02/04/2017 PRESENT ILLNESS: The patient has a methicillin-resistant Staph aureus pneumonia. On x-ray today the infiltrate is worsening but otherwise, the patient is doing relatively well. She is not febrile. Her white count is normal and she appears to be in no acute distress. Therefore, I think that even though the x-ray is worsening, this may reflect the radiologic lag between the patient's clinical condition and the x-ray study. MEDICATIONS: The patient is receiving vancomycin. This is the 4th day of treatment with that agent PHYSICAL EXAMINATION: Vital Signs: Temperature is 99.1 degrees, pulse 94, respirations 12, blood pressure 162/89. General: This is a somewhat ill-appearing, elderly female. As mentioned above, she does not appear to be in any acute distress. She is intubated and sedated. Lungs: Clear to auscultation. Cardiovascular: Regular heart rate. Abdomen: Soft and nontender. LAB AND X-RAY: The chest x-ray shows worsening right lower lobe infiltrate as discussed above. CBC shows a white count of 7,920, hemoglobin 9.8, and platelet count 135,000. The patient's blood gases today show a pH of 7.41, PO2 of 58, pCO2 of 40. There was no creatinine today and no CBC today. ASSESSMENT AND PLAN: The patient has a methicillin-resistant Staph aureus pneumonia. My plan is to continue vancomycin. The patient's comorbidities include multiple myeloma, hypogammaglobulinemia, COPD, cigarette smoking, sleep apnea, gastroesophageal reflux disease, and noncompliance with treatments. cc: John Garcia MD
[2017-02-04] MEDS: XANAX PO SCH (20:12)
[2017-02-05] MEDS: TYLENOL PO PRN (00:57)
[2017-02-05] MEDS ORDERED: LASIX IV ONE (01:24)
[2017-02-05] MEDS ORDERED: D5 1/2 NS 1,000 ML IV SCH (01:25)
[2017-02-05] MEDS: MORPHINE IV PRN ×2 (02:38→21:09)
[2017-02-05] MEDS: DIPRIVAN 1% 1,000 MG/100 ML BOTTLE IV SCH ×6 (02:38→22:47)
[2017-02-05] MEDS: DUONEB (A & A) INH SCH ×6 (03:41→23:40)
[2017-02-05 04:38] LABS: ALLEN TEST YES; BE 4.2 mmoll (-3.0-3.0); BLOOD TYPE ARTERIAL; DRAW SITE R RADIAL; METHB 1.3 % (0.0-1.5); O2(CT) 19.2 mL/dL (15.0-23.0); PCO2(98.6) 40 mmHg (35-45); PO2(98.6) 52 mmHg (60-100); SAMPLE BLOOD; SAO2 92.5 % (95.0-100.0); SRATE 12 BPM; THB 15.3 g/dL (11.5-17.4); TVOL 500 mL; pH(98.6) 7.46 (7.35-7.45)
[2017-02-05 04:44] LABS: MODALITY VENTILATOR
[2017-02-05 05:35] LABS: HEMATOCRIT 32.1 % (37.0-47.0); HEMOGLOBIN 10.3 g/dL (12.0-16.0); MCH 27.9 PG (27-31); MCHC 32.1 g/dL (33-37); MPV 10.4 FL (7.4-10.4); RBC 3.69 XMIL (4.2-5.4)
[2017-02-05 05:36] LABS: AGAP 10; BUN 10 mg/dL (8-22); CALCIUM 8.3 mg/dL (8.8-10.2); CHLORIDE 105 mmol/L (98-107); COSMO 282; POTASSIUM 3.1 mmol/L (3.5-5.1); SODIUM 142 mmol/L (136-145); TCO2 27 mmol/L (25-35)
[2017-02-05] MEDS: LOVENOX SUBQ SCH (07:41)
[2017-02-05] MEDS: PROTONIX IV SCH (07:41)
[2017-02-05] MEDS: SODIUM CHLORIDE 0.9% INJ SCH (07:41)
--- NOTE | 2017-02-05 08:15 | Diag Imaging Result Document ---
PROCEDURE NAME: CHEST-PORTABLE - 02/05/2017 AP PORTABLE ERECT CHEST DATED AT 0545 HOURS: FINDINGS: There is an endotracheal tube with its tip at the thoracic inlet. There is an NG tube which passes below the diaphragm. There are pleural effusions bilaterally. There is some improvement in the opacity over the right base compared to 02/04/2017. Otherwise, there has been no recent significant change. IMPRESSION: Improved pulmonary edema versus pneumonia. Pleural effusions worse on the right than the left.
[2017-02-05] MEDS: NICODERM PATCH TD SCH (08:28)
[2017-02-05] MEDS: MIRALAX PO SCH (08:28)
[2017-02-05] MEDS: ZOLOFT NG SCH (08:28)
[2017-02-05 11:02] LABS: INR 0.96
[2017-02-05] MEDS: VANCOMYCIN 1 GM/NS 1 GM/250 ML IVPB IV SCH (11:25)
[2017-02-05] MEDS ORDERED: NS 250 ML ONE (12:32)
--- NOTE | 2017-02-05 17:08 | PROGRESS NOTE ---
DATE: 02/05/2017 PRESENT ILLNESS: The patient has methicillin-resistant Staph aureus pneumonia. She also has a low IgG level. MEDICATIONS: The patient is receiving the 5th day of treatment with vancomycin. PHYSICAL EXAMINATION: Vital Signs: Temperature is 99.6 degrees, pulse 98, respirations 13, blood pressure 132/84. General: This patient is an ill-appearing, elderly female. She is in no acute distress. Lungs: There were bilateral rhonchi. Cardiovascular: Heart rate is regular. Abdomen: Soft and nontender. Neurologic: The patient is obtunded. She did not respond to verbal stimuli. LAB AND X-RAY: Chest x-ray showed improved infiltrates. The patient's CBC shows a white count of 5090, hemoglobin 10.3, and platelet count 152,000. Blood gases show a pH of 7.46, a PO2 of 52, a pCO2 of 40. Creatinine is 0.3. GFR is greater than 60. The patient's IgG level was 463 but this has been repleted. ASSESSMENT AND PLAN: Patient has pneumonia associated with a low IgG level. The plan will be to continue vancomycin and periodically check the IgG level to see if it gets low again. COMORBIDITIES: Include multiple myeloma, low IgG level, COPD, cigarette smoking, sleep apnea, gastroesophageal reflux disease and noncompliance with treatments. cc: John Garcia MD
--- NOTE | 2017-02-05 18:13 | PROGRESS NOTE ---
DATE: 02/05/2017 SUBJECTIVE: The patient remains intubated and sedated on the ventilator. The patient has lost IV access so a PICC line will be placed. OBJECTIVE: Vital Signs: Temperature 99.5 degrees, blood pressure 131/84, heart rate 97, respirations 20, O2 saturations 100% on mechanical ventilation. General: This is an elderly female lying in bed on the ventilator in no acute distress. Head: Normocephalic, atraumatic. Heart: S1, S2. Normal. Tachycardic. Lungs: Equal entry bilaterally with coarse breath sounds. Abdomen: Positive bowel sounds. Soft, nontender, nondistended. Extremity: No edema. No cyanosis. No calf tenderness. Neuro: The patient is currently sedated on the ventilator. LABS: White blood cell count 5, hemoglobin 10, hematocrit 32, sodium 132, potassium 3.1 chloride 105, CO2 27, BUN 10, creatinine 0.3, glucose 102. ASSESSMENT AND PLAN: 1. Acute hypoxemic respiratory failure secondary to methicillin-resistant Staphylococcus aureus pneumonia. Continue with ventilatory support and IV vancomycin. Pulmonary and ID are following. 2. Hypokalemia. Will replace the patient's potassium. 3. Methicillin-resistant Staphylococcus aureus pneumonia. Continue on IV vancomycin as directed by Dr. Garcia. 4. Anemia of chronic disease. The patient's hemoglobin and hematocrit is stable. 5. Deep vein thrombosis prophylaxis. Continue on Lovenox. cc: Elizabeth Moss MD MTDD
[2017-02-05] MEDS ORDERED: POTASSIUM CHLORIDE 60 MEQ in NS 500 ML IV ONE (19:00)
[2017-02-05] MEDS: XANAX PO SCH (21:22)
[2017-02-05] MEDS: VANCOMYCIN 1,500 MG in NS 250 ML IV SCH (22:46)
[2017-02-06] MEDS: DIPRIVAN 1% 1,000 MG/100 ML BOTTLE IV SCH ×4 (02:57→21:03)
[2017-02-06] MEDS: DUONEB (A & A) INH SCH ×7 (03:20→23:17)
[2017-02-06 04:53] LABS: ALLEN TEST YES; BE 3.2 mmoll (-3.0-3.0); BLOOD TYPE ARTERIAL; DRAW SITE R RADIAL; METHB 1.5 % (0.0-1.5); O2(CT) 13.8 mL/dL (15.0-23.0); PCO2(98.6) 37 mmHg (35-45); PO2(98.6) 61 mmHg (60-100); SAMPLE BLOOD; SAO2 95.5 % (95.0-100.0); SRATE 12 BPM; THB 10.6 g/dL (11.5-17.4); TVOL 500 mL; pH(98.6) 7.47 (7.35-7.45)
[2017-02-06 04:56] LABS: MODALITY VENTILATOR
[2017-02-06 07:54] LABS: MANUAL DIFF NEEDED? NO
[2017-02-06] MEDS: ZOLOFT NG SCH (08:07)
[2017-02-06] MEDS: SODIUM CHLORIDE 0.9% INJ SCH (08:07)
[2017-02-06] MEDS: LOVENOX SUBQ SCH (08:07)
[2017-02-06] MEDS: NICODERM PATCH TD SCH (08:07)
[2017-02-06] MEDS: PROTONIX IV SCH (08:07)
[2017-02-06] MEDS: MIRALAX PO SCH (08:07)
[2017-02-06 08:19] LABS: BASO% 0.7 % (0.0-0.8); EOS# 0.06 X1000 (0.0-0.7); HEMATOCRIT 31.4 % (37.0-47.0); HEMOGLOBIN 10.1 g/dL (12.0-16.0); IMM GRAN# 0.16 X1000 (0.0-0.04); IMM GRAN% 2.7 % (0.0-0.5); LYMPH% 20.3 % (20.5-51.1); MCH 27.9 PG (27-31); MCHC 32.2 g/dL (33-37); MCV 86.7 FL (81-99); MONO# 0.85 X1000 (0.11-0.59); MONO% 14.4 % (1.7-9.3); MPV 10.9 FL (7.4-10.4); NEUT% 60.9 % (42.2-75.2); PLT 175 X1000 (130-400); RBC 3.62 XMIL (4.2-5.4)
[2017-02-06 09:09] LABS: AGAP 12; BUN 12 mg/dL (8-22); CHLORIDE 106 mmol/L (98-107); COSMO 281; POTASSIUM 4.7 mmol/L (3.5-5.1); SODIUM 141 mmol/L (136-145); TCO2 23 mmol/L (25-35)
[2017-02-06] MEDS: VANCOMYCIN 1,500 MG in NS 250 ML IV SCH ×2 (09:33→21:04)
[2017-02-06] MEDS: MORPHINE IV PRN (09:34)
[2017-02-06 09:39] LABS: MAGNESIUM 1.9 mg/dL (1.5-2.7)
--- NOTE | 2017-02-06 12:19 | PROGRESS NOTE ---
DATE: 02/06/2017 SUBJECTIVE: The patient remains on the ventilator. No acute events noted overnight. OBJECTIVE: Vital Signs: Temperature 97 degrees, blood pressure 113/70, heart rate 103, respirations 13, O2 saturations 93% on the mechanical ventilator. General: This is a chronically ill-appearing, elderly female, currently sedated on the ventilator. Head: Normocephalic atraumatic. Heart: S1, S2 normal, tachycardic. Lungs: Coarse breath sounds bilaterally. No crackles. No rales. Abdomen: Positive bowel sounds. Soft, nontender, nondistended. Extremities: No edema. No cyanosis. No calf tenderness. Neurologic: The patient is currently sedated. LABS: White blood cell count 5.9, hemoglobin 10, hematocrit 31, platelets 175,000. Sodium 141, potassium 4.7, chloride 106, CO2 23, BUN 12, creatinine 0.3, glucose 100. ASSESSMENT AND PLAN: 1. Acute hypoxemic respiratory failure secondary to methicillin-resistant Staphylococcus aureus pneumonia. Continue on ventilatory support and IV vancomycin. Pulmonary and ID are following. 2. Methicillin-resistant Staphylococcus aureus pneumonia. Continue on the current IV antibiotic regimen. 3. Anemia of chronic disease. The patient's hemoglobin and hematocrit are stable. 4. Volume overload. The patient has been started on Lasix by the icu manager. We will monitor the patient's volume status closely. 5. Deep vein thrombosis prophylaxis. Continue on Lovenox. 6. The plan of care was discussed with the patient's family members at the bedside. cc: Elizabeth Moss MD
[2017-02-06] MEDS: LASIX IV SCH (14:32)
[2017-02-06] MEDS: MUCOMYST 20% INH SCH ×2 (15:38→19:50)
[2017-02-06] MEDS: HALDOL IV PRN (20:09)
[2017-02-06] MEDS: XANAX PO SCH (20:10)
[2017-02-07] MEDS: LASIX IV SCH (00:09)
[2017-02-07] MEDS: DIPRIVAN 1% 1,000 MG/100 ML BOTTLE IV SCH ×5 (01:57→22:53)
[2017-02-07] MEDS: DUONEB (A & A) INH SCH ×6 (03:18→23:08)
[2017-02-07] MEDS: HALDOL IV PRN (04:07)
[2017-02-07] MEDS: MORPHINE IV PRN ×3 (04:09→21:25)
[2017-02-07 04:43] LABS: ALLEN TEST YES; BE 4.3 mmoll (-3.0-3.0); BLOOD TYPE ARTERIAL; DRAW SITE R RADIAL; METHB 1.5 % (0.0-1.5); O2(CT) 18.4 mL/dL (15.0-23.0); PCO2(98.6) 34 mmHg (35-45); PO2(98.6) 74 mmHg (60-100); SAMPLE BLOOD; SAO2 98.7 % (95.0-100.0); SRATE 12 BPM; THB 13.7 g/dL (11.5-17.4); TVOL 600 mL; pH(98.6) 7.51 (7.35-7.45)
[2017-02-07 04:44] LABS: MODALITY VENTILATOR
[2017-02-07 05:16] LABS: MANUAL DIFF NEEDED? NO
[2017-02-07 05:22] LABS: BASO% 0.3 % (0.0-0.8); EOS# 0.11 X1000 (0.0-0.7); EOS% 1.7 % (0.0-10.0); HEMATOCRIT 31.2 % (37.0-47.0); IMM GRAN% 3.1 % (0.0-0.5); LYMPH# 1.08 X1000 (1.2-3.4); LYMPH% 16.8 % (20.5-51.1); MCH 27.8 PG (27-31); MCHC 32.1 g/dL (33-37); MCV 86.7 FL (81-99); MONO# 0.56 X1000 (0.11-0.59); MONO% 8.7 % (1.7-9.3); MPV 10.9 FL (7.4-10.4); NEUT% 69.4 % (42.2-75.2); PLT 203 X1000 (130-400)
[2017-02-07 05:42] LABS: AGAP 11; BUN 17 mg/dL (8-22); CALCIUM 8.4 mg/dL (8.8-10.2); CHLORIDE 101 mmol/L (98-107); COSMO 277; POTASSIUM 3.9 mmol/L (3.5-5.1); SODIUM 138 mmol/L (136-145); TCO2 26 mmol/L (25-35)
[2017-02-07] MEDS: MUCOMYST 20% INH SCH ×2 (07:48→19:06)
--- NOTE | 2017-02-07 09:02 | Diag Imaging Result Document ---
PROCEDURE NAME: CHEST-PORTABLE - 02/07/2017 PORTABLE CHEST: Compared with 02/06/2017. FINDINGS: Endotracheal tube, nasogastric tube, and PICC remain in place. There is relatively diffuse infiltrate on the right, most dense at the base, which appears grossly stable. There is apparent small right pleural effusion. There is apparent basilar atelectasis and/or subpulmonic pleural fluid on the left which appears essentially stable. There is no pneumothorax seen. IMPRESSION: No significant change compared to prior.
[2017-02-07] MEDS: NICODERM PATCH TD SCH (09:17)
[2017-02-07] MEDS: LOVENOX SUBQ SCH (09:17)
[2017-02-07] MEDS: MIRALAX PO SCH (09:17)
[2017-02-07] MEDS: PROTONIX IV SCH (09:17)
[2017-02-07] MEDS: ZOLOFT NG SCH (09:18)
[2017-02-07] MEDS: VANCOMYCIN 1,500 MG in NS 250 ML IV SCH ×2 (11:00→23:37)
--- NOTE | 2017-02-07 16:53 | PROGRESS NOTE ---
DATE: 02/07/2017 SUBJECTIVE: The patient is off sedation and she is awake. She is currently on the ventilator. OBJECTIVE: Vital Signs: Temperature 97 degrees, blood pressure 95/64, heart rate 101, respirations 13, O2 saturation is 93% on the mechanical ventilator. General: This is an elderly female, lying in bed, in no acute distress. Head: Normocephalic, atraumatic. Heart: S1, S2. Normal. Tachycardic. Lungs: Equal air entry bilaterally. No crackles. No rales. Abdomen: Positive bowel sounds. Soft, nontender, nondistended. Extremities: No edema. No cyanosis. LABS: White blood cell count 6.4, hemoglobin 10, hematocrit 31, platelets 203,000. Sodium 138, potassium 3.9, chloride 101, CO2 26, BUN 17, creatinine 0.3, glucose 100, calcium 8.4. ASSESSMENT AND PLAN: 1. Acute hypoxemic respiratory failure secondary to methicillin-resistant Staphylococcus aureus pneumonia. Continue with ventilatory support and IV antibiotic therapy. Management as per the workshop manager. 2. Methicillin-resistant Staphylococcus aureus pneumonia. Continue on vancomycin. 3. Volume overload. Slowly improving. 4. Anemia of chronic disease. Stable. 5. Gastrointestinal prophylaxis. Continue on Protonix. 6. Deep vein thrombosis prophylaxis. Continue on Lovenox. cc: Elizabeth Moss MD
[2017-02-07] MEDS: XANAX PO SCH (21:25)
[2017-02-08] MEDS: DUONEB (A & A) INH SCH ×6 (02:47→22:31)
[2017-02-08] MEDS: DIPRIVAN 1% 1,000 MG/100 ML BOTTLE IV SCH ×5 (03:59→21:45)
[2017-02-08] MEDS: VANCOMYCIN 1,100 MG in NS 250 ML IV SCH ×2 (03:59→16:08)
[2017-02-08 04:41] LABS: ALLEN TEST YES; BE 5.3 mmoll (-3.0-3.0); BLOOD TYPE ARTERIAL; DRAW SITE R RADIAL; METHB 1.7 % (0.0-1.5); PCO2(98.6) 38 mmHg (35-45); PO2(98.6) 61 mmHg (60-100); SAMPLE BLOOD; SAO2 94.1 % (95.0-100.0); SRATE 12 BPM; THB 9.3 g/dL (11.5-17.4); TVOL 600 mL; pH(98.6) 7.49 (7.35-7.45)
[2017-02-08 04:42] LABS: MODALITY VENTILATOR
[2017-02-08 05:18] LABS: AGAP 13; ALKALINE PHOSPHATASE 72 U/L (32-104); BUN 17 mg/dL (8-22); CALCIUM 8.1 mg/dL (8.8-10.2); CHLORIDE 104 mmol/L (98-107); COSMO 281; GOT 21 U/L (10-30); GPT 18 U/L (10-36); POTASSIUM 4.3 mmol/L (3.5-5.1); SODIUM 140 mmol/L (136-145); TCO2 23 mmol/L (25-35); TOTAL BILIRUBIN 0.22 mg/dL (0.20-1.00); TOTAL PROTEIN 5.4 g/dL (6.3-8.3)
[2017-02-08] MEDS: MORPHINE IV PRN ×4 (05:59→15:32)
--- NOTE | 2017-02-08 07:27 | Diag Imaging Result Document ---
PROCEDURE NAME: CHEST-PORTABLE - 02/06/2017 PORTABLE CHEST: COMPARISON: 02/05/2017. FINDINGS: No change in the right-sided PICC line, the endotracheal tube, or in the nasogastric tube. There are infiltrates in the right lung and in the lung bases. Heart is not enlarged. I believe there are small bilateral pleural effusions. There has been very little change compared to the prior exam. IMPRESSION: Stable chest.
[2017-02-08] MEDS: MUCOMYST 20% INH SCH ×2 (07:35→19:37)
[2017-02-08] MEDS: PROTONIX IV SCH (08:08)
[2017-02-08] MEDS: ZOLOFT NG SCH (08:09)
[2017-02-08] MEDS: MIRALAX PO SCH (08:10)
[2017-02-08] MEDS: NICODERM PATCH TD SCH (08:10)
--- NOTE | 2017-02-08 08:33 | Diag Imaging Result Document ---
PROCEDURE NAME: CHEST-PORTABLE - 02/08/2017 PORTABLE CHEST X-RAY, 02/08/2017: COMPARISON: 02/07/2017. FINDINGS: Stable support lines and tubes. Stable ill-defined infiltrates throughout the right lung and left base. No new infiltrates. IMPRESSION: No change from prior.
[2017-02-08 08:44] LABS: MANUAL DIFF NEEDED? NO
[2017-02-08 08:49] LABS: BASO% 0.3 % (0.0-0.8); EOS% 1.4 % (0.0-10.0); HEMATOCRIT 28.4 % (37.0-47.0); HEMOGLOBIN 8.9 g/dL (12.0-16.0); IMM GRAN# 0.09 X1000 (0.0-0.04); IMM GRAN% 1.3 % (0.0-0.5); LYMPH# 0.89 X1000 (1.2-3.4); LYMPH% 12.7 % (20.5-51.1); MCH 27.2 PG (27-31); MCHC 31.3 g/dL (33-37); MCV 86.9 FL (81-99); MONO# 0.51 X1000 (0.11-0.59); MONO% 7.3 % (1.7-9.3); MPV 10.1 FL (7.4-10.4); PLT 225 X1000 (130-400); RBC 3.27 XMIL (4.2-5.4)
--- NOTE | 2017-02-08 10:20 | Diag Imaging Result Document ---
PROCEDURE NAME: ANGIOGRAM/PULMONARY ARTERIES - 02/08/2017 CT OF THE CHEST WITH INTRAVENOUS CONTRAST: FINDINGS: There is an endotracheal tube with its tip above the dawson. There are atherosclerotic calcifications in the thoracic aorta. No evidence of dissection or aneurysm is present. There is an NG tube, extending into the stomach. There are no filling defects in the pulmonary arteries. There is consolidation in both lower lobes with a small effusion on the right. This also opacification in the posterior portion of the right upper lobe. Compared to the previous study of 04/17/2012, the opacities in the right upper and lower lobes were not present previously. There were worse opacities in the left upper lobe and left lower lobe at the time of the previous study. Compared to the previous noncontrast study of 06/20/2015, none of the pulmonary opacities were present previously. IMPRESSION: Right upper and bilateral lower lobe pneumonia. COPD. No evidence of pulmonary emboli.
[2017-02-08] MEDS: LOVENOX SUBQ SCH ×3 (10:30→21:45)
--- NOTE | 2017-02-08 12:48 | PROGRESS NOTE ---
DATE: 02/08/2017 SUBJECTIVE: The patient is awake and on the ventilator. OBJECTIVE: Vital Signs: Temperature 98 degrees, blood pressure 111/70, heart rate 97, respirations 18, O2 saturation 93% on the mechanical ventilator. General: This is an elderly female, lying in bed, in no acute distress. Head: Normocephalic, atraumatic. Heart: S1, S2. Normal. Tachycardic. Lungs: Equal air entry bilaterally. No crackles. No rales. Abdomen: Positive bowel sounds. Soft, nontender, nondistended. Extremities: No edema. No cyanosis. No calf tenderness. Neurologic: The patient is awake and follows commands. LABS: White blood cell count 7, hemoglobin 8.9, hematocrit 28, platelets 225,000. Sodium 140, potassium 4.3, chloride 104, CO2 23, BUN 17, creatinine 0.3, glucose 92, calcium 8.1. ASSESSMENT AND PLAN: 1. Acute hypoxemic respiratory failure. Continue with ventilatory management as per the trouble tracer. 2. Methicillin-resistant Staphylococcus aureus pneumonia. Continue on vancomycin. 3. Anemia of chronic disease. Stable. 4. Gastrointestinal prophylaxis. Continue on Protonix. 5. Deep vein thrombosis prophylaxis. Continue on Lovenox. cc: Elizabeth Moss MD
--- NOTE | 2017-02-08 19:40 | PROGRESS NOTE ---
DATE: 02/08/2017 HISTORY OF PRESENT ILLNESS: The patient has a methicillin-resistant Staph aureus pneumonia. She also has a low IgG level. MEDICATIONS: This is the 8th day of treatment with vancomycin. PHYSICAL EXAMINATION: Vital Signs: Temperature is 98.9 degrees, pulse 95, respirations 15, blood pressure 108/68. General: This is an ill-appearing, elderly female. She is intubated and sedated. Lungs: Clear to auscultation. Cardiovascular: Regular heart rate. Abdomen: Soft and nontender. ENT: Patient has an orotracheal tube in place. Neurologic: The patient is arousable. She moved her extremities to request. LAB AND X-RAY: A pulmonary angiogram shows bilateral pneumonia. The patient's CBC shows a white count of 7020, hemoglobin 8.9, and platelet count 225,000. Patient's arterial blood gases show a pH of 7.49, a pO2 of 61, and a pCO2 of 38. Creatinine is 0.3. GFR is greater than 60. ASSESSMENT AND PLAN: The patient has a methicillin-resistant Staph aureus pneumonia and a low IgG level. The plan will be to continue vancomycin and repeat the IgG level to see if it is falling again. COMORBIDITIES: Includes the followin. Multiple myeloma. 2. Low IgG level. 3. Chronic obstructive pulmonary disease. 4. Cigarette smoking. 5. Sleep apnea. 6. Gastroesophageal reflux disease. 7. History of noncompliance with treatment. cc: John Garcia MD
[2017-02-08] MEDS: XANAX PO SCH (20:34)
[2017-02-09] MEDS: DIPRIVAN 1% 1,000 MG/100 ML BOTTLE IV SCH ×6 (02:00→21:48)
[2017-02-09] MEDS: VANCOMYCIN 1,100 MG in NS 250 ML IV SCH ×2 (03:02→17:15)
[2017-02-09] MEDS: DUONEB (A & A) INH SCH ×6 (03:09→22:51)
[2017-02-09 04:10] LABS: MANUAL DIFF NEEDED? NO
[2017-02-09 04:12] LABS: ALLEN TEST YES; BE 2.8 mmoll (-3.0-3.0); BLOOD TYPE ARTERIAL; DRAW SITE R RADIAL; METHB 0.9 % (0.0-1.5); O2(CT) 11.1 mL/dL (15.0-23.0); PCO2(98.6) 40 mmHg (35-45); PO2(98.6) 66 mmHg (60-100); SAMPLE BLOOD; SAO2 95.5 % (95.0-100.0); SRATE 12 BPM; THB 8.4 g/dL (11.5-17.4); TVOL 600 mL; pH(98.6) 7.44 (7.35-7.45)
[2017-02-09 04:15] LABS: MODALITY VENTILATOR
[2017-02-09 04:17] LABS: BASO% 0.3 % (0.0-0.8); EOS% 1.7 % (0.0-10.0); HEMATOCRIT 27.1 % (37.0-47.0); HEMOGLOBIN 8.6 g/dL (12.0-16.0); IMM GRAN# 0.07 X1000 (0.0-0.04); IMM GRAN% 1.2 % (0.0-0.5); LYMPH# 0.87 X1000 (1.2-3.4); LYMPH% 14.7 % (20.5-51.1); MCH 27.5 PG (27-31); MCHC 31.7 g/dL (33-37); MCV 86.6 FL (81-99); MONO# 0.34 X1000 (0.11-0.59); MONO% 5.7 % (1.7-9.3); MPV 10.2 FL (7.4-10.4); NEUT% 76.4 % (42.2-75.2); PLT 249 X1000 (130-400); RBC 3.13 XMIL (4.2-5.4)
[2017-02-09] MEDS: MUCOMYST 20% INH SCH ×2 (07:30→19:02)
[2017-02-09] MEDS: LOVENOX SUBQ SCH (08:00)
[2017-02-09] MEDS: NICODERM PATCH TD SCH (08:00)
[2017-02-09] MEDS: ZOLOFT NG SCH (08:00)
[2017-02-09] MEDS: MIRALAX PO SCH (08:00)
[2017-02-09] MEDS: PROTONIX IV SCH (08:00)
--- NOTE | 2017-02-09 08:30 | Diag Imaging Result Doc PS360 ---
CHEST-PORTABLE - 02/09/2017 INDICATION: Ventilator COMPARISON: 02/08/2017 FINDINGS: Stable endotracheal tube nasogastric tube and right PICC line in good position. Stable infiltrates throughout the right lung. Stable bibasilar infiltrates and/or effusions. Stable cardiomegaly and pulmonary vascular congestion. IMPRESSION: No change from prior. Electronically signed by Howard Clancy 02/09/2017 8:27 AM
[2017-02-09 09:34] LABS: ALLEN TEST YES; BE 2.4 mmoll (-3.0-3.0); BLOOD TYPE ARTERIAL; DRAW SITE L RADIAL; METHB 0.9 % (0.0-1.5); O2(CT) 15.2 mL/dL (15.0-23.0); PCO2(98.6) 38 mmHg (35-45); PO2(98.6) 59 mmHg (60-100); SAMPLE BLOOD; SAO2 93.1 % (95.0-100.0); THB 11.9 g/dL (11.5-17.4); pH(98.6) 7.45 (7.35-7.45)
[2017-02-09 09:35] LABS: MODALITY VENTILATOR
[2017-02-09] MEDS: MORPHINE IV PRN (14:42)
--- NOTE | 2017-02-09 17:45 | PROGRESS NOTE ---
DATE: 02/09/2017 SUBJECTIVE: The patient remains on the ventilator. No acute events noted overnight. OBJECTIVE: Vital Signs: Temperature 98.6 degrees, blood pressure 143/87, heart rate 92, respirations 18, O2 saturations 92% on 45% FiO2. General: This is a chronically ill-appearing elderly female lying in bed in no acute distress. Head: Normocephalic. Atraumatic. Heart: S1, S2. Normal. Tachycardic. Lungs: Coarse breath sounds bilaterally. Equal air entry bilaterally. Abdomen: Positive bowel sounds. Soft, nontender, nondistended. Extremities: No edema. No cyanosis. No calf tenderness. Neurologic: The patient is awake and alert. LABS: White blood cell count 5.9, hematocrit 27, hemoglobin 8.6. ASSESSMENT AND PLAN: 1. Acute hypoxemic respiratory failure secondary to methicillin-resistant Staphylococcus aureus pneumonia. Continue on ventilatory support, pulmonary toiletry and IV antibiotic therapy. Management as per the field scout and ID. 2. Methicillin-resistant Staphylococcus aureus pneumonia. Continue on vancomycin. 3. Anemia of chronic disease. Stable. 4. Deep vein thrombosis prophylaxis. Continue on Lovenox. 5. Gastrointestinal prophylaxis. Continue on Protonix. cc: Elizabeth Moss MD
--- NOTE | 2017-02-09 19:08 | PROGRESS NOTE ---
DATE: 02/09/2017 PRESENT ILLNESS: The patient has a methicillin-resistant Staph aureus pneumonia and her IgG is low, but only marginally low at 654. MEDICATIONS: This is day 9 of treatment with vancomycin. PHYSICAL EXAMINATION: Vital Signs: Temperature is 98.6, pulse 92, respirations 18, blood pressure 143/87. Generally: This is a chronically ill-appearing, elderly female. She is intubated and sedated. Lungs: Clear to auscultation. Cardiovascular: Regular heart rate. Abdomen: Soft, nontender. Extremities: Patient's PICC site in the right arm is not swollen or red. LAB AND X-RAY: Chest x-ray shows stable bibasilar infiltrates and pulmonary vascular congestion. The patient's creatinine is 0.3. GFR is greater than 60. The patient's blood gases show a pH of 7.45, a pO2 of 59, and a pCO2 of 38. CBC shows a white count of 5930. Hemoglobin 8.6 and platelet count 249,000. The IgG level is 654. ASSESSMENT AND PLAN: Patient has a MRSA pneumonia. I plan to continue vancomycin. The IgG level of 654 is only minimally depressed and clinically I do not think it merits gammaglobulin infusion therapy. COMORBIDITIES: Include multiple myeloma, COPD, cigarette smoking, sleep apnea, gastroesophageal reflux disease and a history of noncompliance with treatment. cc: John Garcia MD
[2017-02-09] MEDS: XANAX PO SCH (21:42)
[2017-02-10] MEDS: DIPRIVAN 1% 1,000 MG/100 ML BOTTLE IV SCH ×8 (01:03→22:28)
[2017-02-10] MEDS: MORPHINE IV PRN ×3 (03:08→10:23)
[2017-02-10] MEDS: DUONEB (A & A) INH SCH ×6 (03:32→23:08)
[2017-02-10] MEDS: VANCOMYCIN 1,100 MG in NS 250 ML IV SCH ×2 (04:13→18:04)
[2017-02-10 04:30] LABS: ALLEN TEST YES; BLOOD TYPE ARTERIAL; DRAW SITE R RADIAL; O2(CT) 15.8 mL/dL (15.0-23.0); PCO2(98.6) 42 mmHg (35-45); PO2(98.6) 68 mmHg (60-100); SAMPLE BLOOD; SAO2 92.2 % (95.0-100.0); SRATE 12 BPM; THB 12.3 g/dL (11.5-17.4); TVOL 600 mL
[2017-02-10 04:32] LABS: MODALITY VENTILATOR
[2017-02-10 05:12] LABS: MANUAL DIFF NEEDED? NO
[2017-02-10 05:18] LABS: BASO% 0.3 % (0.0-0.8); EOS% 1.4 % (0.0-10.0); HEMATOCRIT 30.7 % (37.0-47.0); HEMOGLOBIN 9.5 g/dL (12.0-16.0); IMM GRAN# 0.07 X1000 (0.0-0.04); LYMPH# 0.67 X1000 (1.2-3.4); LYMPH% 9.5 % (20.5-51.1); MCH 26.9 PG (27-31); MCHC 30.9 g/dL (33-37); MONO# 0.45 X1000 (0.11-0.59); MONO% 6.4 % (1.7-9.3); MPV 10.6 FL (7.4-10.4); NEUT% 81.4 % (42.2-75.2); PLT 292 X1000 (130-400); RBC 3.53 XMIL (4.2-5.4)
[2017-02-10 05:40] LABS: AGAP 13; ALBUMIN 2.4 g/dL (3.5-5.0); BUN 11 mg/dL (8-22); CALCIUM 8.1 mg/dL (8.8-10.2); CHLORIDE 103 mmol/L (98-107); COSMO 276; POTASSIUM 3.5 mmol/L (3.5-5.1); SODIUM 138 mmol/L (136-145); TCO2 22 mmol/L (25-35)
--- NOTE | 2017-02-10 07:01 | Diag Imaging Result Doc PS360 ---
EXAM: CHEST-PORTABLE HISTORY: dyspnea COMMENT: There is increased opacity throughout the right lung and to some extent in the left base and apex. This appears somewhat worse particularly on the right side than on 02/09/2017. There is an endotracheal tube with its tip approximately 3 cm above the dawson and NG tube which appears to pass into the stomach and a PICC line on the right with its tip in superior vena cava. There is likely bilateral pleural effusion. The heart size is stable in appearance. IMPRESSION: Essentially stable chest. The pulmonary edema or pneumonia on the right may be slightly worse however this is likely due to technical differences from the previous study. Electronically signed by Madhav Salcido 02/10/2017 6:59 AM
[2017-02-10] MEDS: MUCOMYST 20% INH SCH ×2 (07:44→19:02)
[2017-02-10] MEDS: SODIUM CHLORIDE 0.9% INJ SCH (08:10)
[2017-02-10] MEDS: LOVENOX SUBQ SCH (08:10)
[2017-02-10] MEDS: PROTONIX IV SCH (08:10)
[2017-02-10] MEDS: MIRALAX PO SCH (08:51)
[2017-02-10] MEDS: ZOLOFT NG SCH (08:51)
[2017-02-10] MEDS: NICODERM PATCH TD SCH (08:51)
--- NOTE | 2017-02-10 12:18 | PROGRESS NOTE ---
DATE: 02/10/2017 SUBJECTIVE: The patient remains on the ventilator. She is being placed on a sedation holiday. OBJECTIVE: Vital Signs: Temperature 98 degrees, blood pressure 112/77, heart rate 84, respirations 14, O2 saturation 94% on mechanical ventilator. General: This is a chronically ill- appearing, elderly female, lying in bed in no acute distress. HEENT: Head normocephalic atraumatic. Heart: S1 and S2 normal. Regular rate and rhythm. Lungs: Equal air entry bilaterally. No crackles. No rales. Abdomen: Positive bowel sounds. Soft, nontender, nondistended. Extremities: No edema. No cyanosis. No calf tenderness. Neurologic: The patient is sedated. LABORATORIES: White blood cell count 7, hemoglobin 9.5, hematocrit 30, platelets 292,000. Sodium 138, potassium 3.5, chloride 103, CO2 of 22, BUN 11, creatinine 0.2, and glucose 119. ASSESSMENT AND PLAN: 1. Acute hypoxemic respiratory failure secondary to pneumonia and volume overload. Continue with ventilatory support and weaning trials as directed by the buffing wheel former machine. Continue on IV antibiotics and bronchodilator therapy. 2. Methicillin-resistant Staphylococcus aureus pneumonia. Continue on IV vancomycin. 3. Anemia of chronic disease. Stable. 4. Deep vein thrombosis prophylaxis. Continue on Lovenox. 5. Gastrointestinal prophylaxis. Continue on Protonix. cc: Elizabeth Moss MD
--- NOTE | 2017-02-10 14:37 | PROGRESS NOTE ---
DATE: 02/10/2017 PRESENT ILLNESS: The patient has a methicillin-resistant Staphylococcus aureus pneumonia. MEDICATIONS: This is day 10 of treatment with vancomycin for the pneumonia. PHYSICAL EXAMINATION: Vital Signs: Temperature is 98.5 degrees, pulse 87, respirations 16, blood pressure 94/60. General: This is a chronically ill-appearing, elderly female. She is intubated and sedated. Lungs: Scattered rhonchi bilaterally. Cardiovascular: Heart rate is regular. Abdomen: Soft and nontender. Extremities: The patient has a PICC in her right arm. The PICC site is not erythematous and it is not draining. LABORATORY AND X-RAY: The patient's CBC today shows a white count of 7070, hemoglobin 9.5, and platelet count 290,000. Patient's blood gases show a pH of 7.4, a PO2 of 68, and a pCO2 of 42. Creatinine is 0.2. The GFR is greater than 60. The patient's IgG level is 654. The IgA level was normal. The chest x-ray shows a right lung infiltrate. ASSESSMENT AND PLAN: The patient has Methicillin-resistant Staphylococcus aureus pneumonia. I plan on continuing vancomycin and for at least 2 weeks. The IgG level of 654 is only minimally suppressed and I do not think it merits gammaglobulin infusion therapy. COMORBIDITIES: Include multiple myeloma, COPD, cigarette smoking, sleep apnea, gastroesophageal reflux disease, and a history of noncompliance with treatment. cc: John Garcia MD
[2017-02-10] MEDS: XANAX PO SCH (20:00)
[2017-02-11] MEDS: DIPRIVAN 1% 1,000 MG/100 ML BOTTLE IV SCH ×2 (01:23→04:45)
[2017-02-11] MEDS: DUONEB (A & A) INH SCH ×6 (03:19→23:10)
[2017-02-11] MEDS: MORPHINE IV PRN ×5 (04:01→23:45)
[2017-02-11 04:34] LABS: ALLEN TEST YES; BE 1.6 mmoll (-3.0-3.0); BLOOD TYPE ARTERIAL; DRAW SITE R RADIAL; METHB 1.1 % (0.0-1.5); O2(CT) 12.2 mL/dL (15.0-23.0); PCO2(98.6) 38 mmHg (35-45); PO2(98.6) 61 mmHg (60-100); SAMPLE BLOOD; SAO2 94.5 % (95.0-100.0); SRATE 12 BPM; THB 9.4 g/dL (11.5-17.4); TVOL 600 mL; pH(98.6) 7.44 (7.35-7.45)
[2017-02-11 04:35] LABS: MODALITY VENTILATOR
[2017-02-11] MEDS: VANCOMYCIN 1,100 MG in NS 250 ML IV SCH ×2 (05:25→18:07)
[2017-02-11 05:39] LABS: MANUAL DIFF NEEDED? NO
[2017-02-11 05:41] LABS: BASO% 0.3 % (0.0-0.8); EOS# 0.12 X1000 (0.0-0.7); EOS% 2.1 % (0.0-10.0); HEMATOCRIT 28.9 % (37.0-47.0); HEMOGLOBIN 8.9 g/dL (12.0-16.0); IMM GRAN# 0.04 X1000 (0.0-0.04); IMM GRAN% 0.7 % (0.0-0.5); LYMPH# 0.87 X1000 (1.2-3.4); LYMPH% 14.9 % (20.5-51.1); MCH 27.1 PG (27-31); MCHC 30.8 g/dL (33-37); MCV 87.8 FL (81-99); MONO% 10.3 % (1.7-9.3); MPV 10.7 FL (7.4-10.4); NEUT% 71.7 % (42.2-75.2); PLT 298 X1000 (130-400); RBC 3.29 XMIL (4.2-5.4)
[2017-02-11] MEDS: PRECEDEX 200 MICROGM in NS 48 ML IV SCH ×7 (06:00→21:40)
[2017-02-11 06:11] LABS: AGAP 12; ALBUMIN 2.4 g/dL (3.5-5.0); BUN 11 mg/dL (8-22); CALCIUM 8.3 mg/dL (8.8-10.2); CHLORIDE 104 mmol/L (98-107); COSMO 277; POTASSIUM 3.7 mmol/L (3.5-5.1); SODIUM 139 mmol/L (136-145); TCO2 23 mmol/L (25-35)
[2017-02-11] MEDS: MUCOMYST 20% INH SCH ×2 (07:23→19:30)
--- NOTE | 2017-02-11 08:10 | Diag Imaging Result Doc PS360 ---
EXAM: CHEST-PORTABLE HISTORY: dyspnea COMPARISON: 02/10/2017 FINDINGS: Endotracheal tube, nasogastric tube, and PICC remain in place. There are bilateral infiltrates, most extensive on the right, which appears stable. These may relate to pneumonia and/or pulmonary edema. There is no large pleural effusion. There is no pneumothorax. There is borderline cardiomegaly. IMPRESSION: Stable bilateral infiltrates, most prominent on the right. Electronically signed by Demetri Loomis 02/11/2017 8:08 AM
[2017-02-11 08:22] LABS: ALLEN TEST YES; BLOOD TYPE ARTERIAL; DRAW SITE L RADIAL; METHB 0.9 % (0.0-1.5); O2(CT) 10.3 mL/dL (15.0-23.0); PCO2(98.6) 38 mmHg (35-45); SAMPLE BLOOD; SAO2 82.5 % (95.0-100.0); THB 9.1 g/dL (11.5-17.4); pH(98.6) 7.46 (7.35-7.45)
[2017-02-11 08:23] LABS: MODALITY VENTILATOR
[2017-02-11 08:25] LABS: PO2(98.6) 42 mmHg (60-100)
[2017-02-11] MEDS: PROTONIX IV SCH (09:08)
[2017-02-11] MEDS: LOVENOX SUBQ SCH (09:08)
[2017-02-11] MEDS: SODIUM CHLORIDE 0.9% INJ SCH (09:08)
[2017-02-11] MEDS: MIRALAX PO SCH (09:09)
[2017-02-11] MEDS: ZOLOFT NG SCH (09:09)
[2017-02-11] MEDS: NICODERM PATCH TD SCH (09:09)
[2017-02-11 12:54] LABS: ALLEN TEST YES; BLOOD TYPE ARTERIAL; DRAW SITE L RADIAL; O2(CT) 12.2 mL/dL (15.0-23.0); PCO2(98.6) 40 mmHg (35-45); PO2(98.6) 60 mmHg (60-100); SAMPLE BLOOD; SAO2 94.2 % (95.0-100.0); THB 9.4 g/dL (11.5-17.4); pH(98.6) 7.43 (7.35-7.45)
[2017-02-11 12:55] LABS: MODALITY VENTILATOR
--- NOTE | 2017-02-11 14:33 | PROGRESS NOTE ---
DATE: 02/11/2017 SUBJECTIVE: The patient is resting comfortably. No acute events noted overnight. OBJECTIVE: Vital Signs: Temperature 97 degrees, blood pressure 117/79, heart rate 73, respiration 24, O2 saturations 93% on mechanical ventilator. General: This is a chronically ill- appearing elderly female, lying in bed. Head: Normocephalic, atraumatic. Heart: S1, S2. Normal. Regular rate and rhythm. Lungs: Coarse breath sounds bilaterally. Abdomen: Positive bowel sounds. Soft, nontender, nondistended. Extremities: No edema. No cyanosis. No calf tenderness. Neurologic: The patient is awake and alert. LABS: White blood cell count 5.8, hemoglobin 8.9, hematocrit 28, platelets 298, 000. Sodium 139, potassium 3.7, chloride 104, CO2 23, BUN 11, creatinine 0.3, glucose 94, calcium 8.3. ASSESSMENT AND PLAN: 1. Acute hypoxemic respiratory failure secondary to pneumonia and volume overload. Continue on ventilatory support, and weaning trials as directed by the automotive upholsterer. 2. Methicillin-resistant Staphylococcus aureus pneumonia. Continue on vancomycin. 3. Anemia of chronic disease. Stable. 4. Deep vein thrombosis prophylaxis. Continue on Lovenox. 5. Gastrointestinal prophylaxis. Continue on Protonix. cc: Elizabeth Moss MD MTDD
--- NOTE | 2017-02-11 18:43 | PROGRESS NOTE ---
DATE: 02/11/2017 PRESENT ILLNESS: The patient has methicillin-resistant Staph aureus pneumonia. MEDICATIONS: This is day 11 of treatment with vancomycin for the pneumonia. PHYSICAL EXAMINATION: Vital Signs: Temperature is 98.5 degrees, pulse 68, respirations 20, blood pressure 98/60. General: This is a chronically ill-appearing, elderly female. She has been extubated today and she is wearing a BiPAP mask. She seems comfortable. Lungs: Clear to auscultation. Cardiovascular: Regular heart rate. Abdomen: Soft and nontender. Neurologic: She is alert. She is trying to talk with the BiPAP mask on. LAB AND X-RAY: Chest x-ray shows stable bilateral infiltrates. CBC has a white count of 5820, hemoglobin 8.9, and platelet count 298,000. Arterial blood gases show a pH of 7.43, PO2 of 60, and a pCO2 of 40. Creatinine is 0.3. GFR is greater than 60. ASSESSMENT AND PLAN: The patient has Methicillin-resistant Staphylococcus aureus pneumonia. My plan is to continue vancomycin for at least 2 weeks. The IgG level of 654 I do not think is clinically important. It is not low enough that it is affecting her immunity. COMORBIDITIES: Multiple myeloma, COPD, cigarette smoking, sleep apnea, and gastroesophageal reflux disease. cc: John Garcia MD
[2017-02-11] MEDS: XANAX PO SCH (20:00)
[2017-02-12] MEDS: PRECEDEX 200 MICROGM in NS 48 ML IV SCH ×2 (00:43→04:02)
[2017-02-12] MEDS: MORPHINE IV PRN ×7 (02:22→23:40)
[2017-02-12] MEDS: DUONEB (A & A) INH SCH ×6 (03:05→22:54)
[2017-02-12] MEDS: VANCOMYCIN 1,100 MG in NS 250 ML IV SCH ×2 (04:01→17:26)
[2017-02-12 04:31] LABS: ALLEN TEST YES; BE 0.6 mmoll (-3.0-3.0); BLOOD TYPE ARTERIAL; DRAW SITE R RADIAL; METHB 1.1 % (0.0-1.5); O2(CT) 11.9 mL/dL (15.0-23.0); PCO2(98.6) 48 mmHg (35-45); PO2(98.6) 85 mmHg (60-100); SAMPLE BLOOD; SAO2 97.2 % (95.0-100.0); THB 8.8 g/dL (11.5-17.4); pH(98.6) 7.35 (7.35-7.45)
[2017-02-12 04:32] LABS: MODALITY VENTIMASK
[2017-02-12 05:24] LABS: HEMATOCRIT 28.5 % (37.0-47.0); HEMOGLOBIN 8.7 g/dL (12.0-16.0); MCH 27.4 PG (27-31); MCHC 30.5 g/dL (33-37); MCV 89.9 FL (81-99); MPV 10.5 FL (7.4-10.4); RBC 3.17 XMIL (4.2-5.4)
[2017-02-12 05:48] LABS: AGAP 15; ALBUMIN 2.5 g/dL (3.5-5.0); BUN 13 mg/dL (8-22); CALCIUM 7.9 mg/dL (8.8-10.2); CHLORIDE 106 mmol/L (98-107); COSMO 284; POTASSIUM 3.8 mmol/L (3.5-5.1); SODIUM 143 mmol/L (136-145); TCO2 22 mmol/L (25-35)
--- NOTE | 2017-02-12 07:16 | Diag Imaging Result Doc PS360 ---
CHEST-PORTABLE - 02/12/2017 INDICATION: dyspnea TECHNIQUE: COMPARISON: 02/11/2017 FINDINGS: The endotracheal tube is no longer present. Stable nasogastric tube and right PICC line. Stable cardiomegaly. There is significant improvement in the central and basilar infiltrates bilaterally. There are probably small effusions. IMPRESSION: 1. Endotracheal tube removed. 2. Improvement in the bilateral infiltrates. Electronically signed by Howard Clancy 02/12/2017 7:14 AM
[2017-02-12] MEDS: MUCOMYST 20% INH SCH ×2 (07:41→19:25)
[2017-02-12] MEDS: PROTONIX IV SCH (08:43)
[2017-02-12] MEDS: NICODERM PATCH TD SCH (08:43)
[2017-02-12] MEDS: SODIUM CHLORIDE 0.9% INJ SCH (08:43)
[2017-02-12] MEDS: LOVENOX SUBQ SCH (08:43)
[2017-02-12] MEDS: MIRALAX PO SCH (08:44)
[2017-02-12] MEDS: ZOLOFT NG SCH (08:44)
--- NOTE | 2017-02-12 14:23 | PROGRESS NOTE ---
DATE: 02/12/2017 SUBJECTIVE: The patient was extubated yesterday and she has been doing a lot better today. OBJECTIVE: Vital Signs: Temperature 99 degrees, blood pressure 148/94, heart rate 87, respirations 22, and O2 saturation is 93% on a Venturi mask. General: This is a chronically ill- appearing, elderly female, lying in bed in no acute distress. HEENT: Head normocephalic and atraumatic. Heart: S1 and S2 normal. Regular rate and rhythm. Lungs: Coarse breath sounds bilaterally. Abdomen: Positive bowel sounds. Soft, nontender, nondistended. Extremities: No edema. No cyanosis. No calf tenderness. Neurologic: The patient is alert and oriented x3. LABORATORIES: White blood cell count 4.4, hemoglobin 8.7, hematocrit 28, platelets 294,000. Sodium 143, potassium 3.8, chloride 106, CO2 of 22, BUN 13, creatinine 0.3, glucose 82, calcium 7.9, albumin 2.5. ASSESSMENT AND PLAN: 1. Acute hypoxemic respiratory failure, status post extubation. Improving. 2. Methicillin-resistant Staphylococcus aureus pneumonia. Continue on vancomycin and bronchodilator therapy. 3. Anemia of chronic disease. The patient's hemoglobin and hematocrit are stable. 4. Deep vein thrombosis prophylaxis. Continue on Lovenox. cc: Elizabeth Moss MD
--- NOTE | 2017-02-12 18:25 | PROGRESS NOTE ---
DATE: 02/12/2017 PRESENT ILLNESS: The patient has methicillin-resistant Staph aureus pneumonia. MEDICATIONS: Patient has been receiving vancomycin for her pneumonia for 12 days. PHYSICAL EXAMINATION: Vital Signs: Temperature is 98.8 degrees, pulse 92, respirations 18, blood pressure 166/73. General: This is an ill-appearing elderly female. She is in no acute distress. Neurologic: The patient has continual tonic-clonic movements of her mouth. Lungs: Clear to auscultation. Cardiovascular: Regular heart rate. Abdomen: Soft and nontender. LAB AND X-RAY: Chest x-ray shows improvement in the patient's bilateral infiltrates. CBC shows a white count of 4440, hemoglobin 8.7, and platelet count 294,000. Blood gases show a pH of 7.35, a PO2 of 85, a pCO2 of 48. Creatinine 0.3. GFR is greater than 60. ASSESSMENT AND PLAN: As mentioned above, the patient has a methicillin-resistant Staphylococcus aureus pneumonia. I plan to continue vancomycin for at least 2 weeks. COMORBIDITIES: Include multiple myeloma, COPD, cigarette smoking, sleep apnea and gastroesophageal reflux disease. cc: John Garcia MD
[2017-02-12] MEDS: XANAX PO SCH (20:43)
[2017-02-13 02:36] LABS: HEMATOCRIT 30.7 % (37.0-47.0); HEMOGLOBIN 9.7 g/dL (12.0-16.0); MCH 27.3 PG (27-31); MCHC 31.6 g/dL (33-37); MCV 86.5 FL (81-99); MPV 9.7 FL (7.4-10.4); RBC 3.55 XMIL (4.2-5.4)
[2017-02-13 03:05] LABS: AGAP 12; ALBUMIN 2.7 g/dL (3.5-5.0); BUN 8 mg/dL (8-22); CALCIUM 7.9 mg/dL (8.8-10.2); CHLORIDE 100 mmol/L (98-107); COSMO 269; POTASSIUM 3.3 mmol/L (3.5-5.1); SODIUM 136 mmol/L (136-145); TCO2 24 mmol/L (25-35)
[2017-02-13] MEDS: DUONEB (A & A) INH SCH ×6 (03:43→23:01)
[2017-02-13 04:42] LABS: ALLEN TEST YES; BE 1.9 mmoll (-3.0-3.0); BLOOD TYPE ARTERIAL; DRAW SITE R RADIAL; METHB 1.3 % (0.0-1.5); O2(CT) 12.7 mL/dL (15.0-23.0); PCO2(98.6) 41 mmHg (35-45); PO2(98.6) 59 mmHg (60-100); SAMPLE BLOOD; SAO2 92.1 % (95.0-100.0); pH(98.6) 7.42 (7.35-7.45)
[2017-02-13 04:43] LABS: MODALITY VENTIMASK
[2017-02-13] MEDS: VANCOMYCIN 1,100 MG in NS 250 ML IV SCH ×2 (05:11→17:27)
--- NOTE | 2017-02-13 07:11 | Diag Imaging Result Doc PS360 ---
EXAM: CHEST-PORTABLE HISTORY: dyspnea TECHNIQUE: AP portable at 0500 COMMENT: The PICC line on the right remains with its tip just above the right atrium. There is subsegmental atelectasis in both lung bases. The heart size and pulmonary vascularity are enlarged. There is apparent slight improvement in pulmonary edema over the right lung compared to the previous study. There may also be slight improvement in atelectasis or pneumonia over the left lower lobe compared to 02/12/2017. IMPRESSION: Improved pulmonary edema and atelectasis. Electronically signed by Madhav Salcido 02/13/2017 7:09 AM
[2017-02-13] MEDS: MUCOMYST 20% INH SCH ×2 (07:26→19:29)
[2017-02-13] MEDS: PROTONIX IV SCH (08:54)
[2017-02-13] MEDS: SODIUM CHLORIDE 0.9% INJ SCH (08:54)
[2017-02-13] MEDS: LOVENOX SUBQ SCH (08:54)
[2017-02-13] MEDS: ZOLOFT NG SCH (08:55)
[2017-02-13] MEDS: NICODERM PATCH TD SCH (08:55)
[2017-02-13] MEDS ORDERED: POTASSIUM PHOSPHATE 30 MMOL in NS 250 ML IV ONE (09:12)
[2017-02-13] MEDS: MIRALAX PO SCH (09:45)
[2017-02-13] MEDS: MORPHINE IV PRN ×3 (10:18→20:41)
--- NOTE | 2017-02-13 15:23 | PROGRESS NOTE ---
DATE: 02/13/2017 SUBJECTIVE: The patient is resting comfortably in bed. She states that she is feeling better today. She is having bowel movements and eating well. OBJECTIVE: Vital Signs: Temperature 98.5 degrees, blood pressure 154/97, heart rate 87, respirations 18, O2 saturation 97% on a Ventimask. General: This is a chronically ill-appearing, elderly female, lying in bed in no acute distress. HEENT: Head normocephalic, atraumatic. Heart: S1 and S2 normal. Regular rate and rhythm. Lungs: Coarse breath sounds bilaterally with rhonchi. Abdomen: Positive bowel sounds. Soft, nontender, nondistended. Extremities: No edema. No cyanosis. No calf tenderness. Neurologic: The patient is alert and oriented x3. LABORATORIES: White blood cell count 5.3, hemoglobin 9.7, hematocrit 30, platelets 371,000. Sodium 136, potassium 3.3, chloride 100, CO2 of 24, BUN 8, creatinine 0.3, glucose 74, phosphorus 2.6, albumin 2.7. ASSESSMENT AND PLAN: 1. Acute hypoxemic respiratory failure, status post extubation. Continue with pulmonary toiletry. 2. Methicillin-resistant Staphylococcus aureus pneumonia. Continue on vancomycin. 3. Anxiety disorder. Continue on Xanax. 4. Tobacco dependence. Continue on the NicoDerm patch. 5. Deep vein thrombosis prophylaxis. Continue on Lovenox. 6. Gastrointestinal prophylaxis. Continue on IV Protonix. cc: Elizabeth Moss MD
[2017-02-13] MEDS: XANAX PO SCH (20:29)
[2017-02-14] MEDS: DUONEB (A & A) INH SCH ×6 (03:48→23:01)
[2017-02-14 04:42] LABS: ALLEN TEST YES; BE 2.6 mmoll (-3.0-3.0); BLOOD TYPE ARTERIAL; DRAW SITE R RADIAL; METHB 0.6 % (0.0-1.5); O2(CT) 14.8 mL/dL (15.0-23.0); PCO2(98.6) 45 mmHg (35-45); PO2(98.6) 72 mmHg (60-100); SAMPLE BLOOD; SAO2 97.3 % (95.0-100.0); THB 11.1 g/dL (11.5-17.4)
[2017-02-14 04:43] LABS: MODALITY VENTIMASK
[2017-02-14] MEDS: MORPHINE IV PRN ×5 (04:50→21:10)
[2017-02-14] MEDS: VANCOMYCIN 1,100 MG in NS 250 ML IV SCH ×2 (04:52→17:00)
[2017-02-14 05:30] LABS: HEMATOCRIT 33.6 % (37.0-47.0); HEMOGLOBIN 10.7 g/dL (12.0-16.0); MCH 27.4 PG (27-31); MCHC 31.8 g/dL (33-37); MCV 85.9 FL (81-99); RBC 3.91 XMIL (4.2-5.4)
[2017-02-14 06:06] LABS: AGAP 14; BUN 9 mg/dL (8-22); CALCIUM 8.3 mg/dL (8.8-10.2); CHLORIDE 100 mmol/L (98-107); COSMO 274; POTASSIUM 3.4 mmol/L (3.5-5.1); SODIUM 138 mmol/L (136-145); TCO2 24 mmol/L (25-35)
[2017-02-14] MEDS: MUCOMYST 20% INH SCH ×2 (07:22→19:27)
--- NOTE | 2017-02-14 07:38 | Diag Imaging Result Doc PS360 ---
EXAM: CHEST-PORTABLE HISTORY: dyspnea TECHNIQUE: AP portable 0500 COMMENT: There is slightly worsened atelectasis or pneumonia in the right upper lobe compared to 02/13/2017. The inspiration is slightly less optimal than on the previous study however. The PICC line remains on the right. IMPRESSION: Worsened right upper lobe atelectasis. Otherwise stable. Electronically signed by Madhav Salcido 02/14/2017 7:36 AM
[2017-02-14] MEDS: LOVENOX SUBQ SCH (07:51)
[2017-02-14] MEDS: SODIUM CHLORIDE 0.9% INJ SCH (07:51)
[2017-02-14] MEDS: PROTONIX IV SCH (07:51)
[2017-02-14] MEDS: POTASSIUM CHLORIDE 20 MEQ/SWI 20 MEQ/100 ML IVPB IV SCH ×2 (07:51→09:44)
[2017-02-14] MEDS: NICODERM PATCH TD SCH (08:33)
[2017-02-14] MEDS: ZOLOFT NG SCH (08:34)
[2017-02-14] MEDS: MIRALAX PO SCH (09:46)
[2017-02-14] MEDS: TOPROL XL PO SCH (13:25)
--- NOTE | 2017-02-14 16:19 | PROGRESS NOTE ---
DATE: 02/14/2017 SUBJECTIVE: The patient is resting comfortably in bed. She has been having regular bowel movements. No acute events noted overnight. OBJECTIVE: Vital Signs: Temperature 97.8 degrees, blood pressure 155/93, heart rate 105, respirations 23, O2 saturations 91% on 5 L nasal cannula. General: This is a chronically ill- appearing, elderly female, lying in bed. Psych: In no acute distress. Head: Normocephalic, atraumatic. Heart: S1, S2. Normal. Tachycardic. Lungs: Coarse breath sounds bilaterally. Equal air entry bilaterally. Abdomen: Positive bowel sounds. Soft, nontender, nondistended. Extremities: No edema. No cyanosis. No calf tenderness. Neurologic: The patient is alert and oriented x3. LABS: CBC: White blood cell count 5.2, hemoglobin 10, hematocrit 33, platelets 429,000. Chem: Sodium 138, potassium 3.4, chloride 100, CO2 24, BUN 9, creatinine 0.2, glucose 99, calcium 8.3, albumin 3.0. ASSESSMENT AND PLAN: 1. Acute hypoxemic respiratory failure status post extubation. Continue with pulmonary toiletry. We will also continue on bronchodilator therapy, IV antibiotics. We will continue to try and wean the patient on supplemental oxygen. 2. Methicillin-resistant Staphylococcus aureus pneumonia. Continue on vancomycin. 3. Tobacco dependence. Continue on the NicoDerm patch. 4. Anxiety disorder. Continue on Xanax. PROPHYLAXIS: 1. Gastrointestinal prophylaxis. Continue on IV Protonix. 2. Deep vein thrombosis prophylaxis. Continue on Lovenox. cc: Eliazbeth Moss MD
[2017-02-14] MEDS: XANAX PO SCH (21:11)
[2017-02-15] MEDS: DUONEB (A & A) INH SCH ×6 (03:33→23:10)
[2017-02-15 04:41] LABS: ALLEN TEST YES; BE 2.3 mmoll (-3.0-3.0); BLOOD TYPE ARTERIAL; DRAW SITE R RADIAL; METHB 0.8 % (0.0-1.5); O2(CT) 15.7 mL/dL (15.0-23.0); PCO2(98.6) 43 mmHg (35-45); PO2(98.6) 60 mmHg (60-100); SAMPLE BLOOD; SAO2 92.9 % (95.0-100.0); THB 12.3 g/dL (11.5-17.4); pH(98.6) 7.41 (7.35-7.45)
[2017-02-15 04:42] LABS: MODALITY CANNULA
[2017-02-15 04:46] LABS: MCH 27.5 PG (27-31); MCHC 31.3 g/dL (33-37); MCV 88.2 FL (81-99); MPV 9.5 FL (7.4-10.4); RBC 3.63 XMIL (4.2-5.4)
[2017-02-15] MEDS: VANCOMYCIN 1,100 MG in NS 250 ML IV SCH ×2 (04:53→17:39)
[2017-02-15] MEDS: MORPHINE IV PRN ×4 (04:54→22:20)
[2017-02-15 05:08] LABS: AGAP 13; BUN 9 mg/dL (8-22); CALCIUM 8.2 mg/dL (8.8-10.2); CHLORIDE 105 mmol/L (98-107); COSMO 284; MAGNESIUM 1.8 mg/dL (1.5-2.7); POTASSIUM 3.7 mmol/L (3.5-5.1); SODIUM 143 mmol/L (136-145); TCO2 25 mmol/L (25-35)
--- NOTE | 2017-02-15 07:24 | Diag Imaging Result Doc PS360 ---
CHEST-PORTABLE - 02/15/2017 INDICATION: dyspnea TECHNIQUE: COMPARISON: 02/14/2017 FINDINGS: Stable right PICC line. Stable cardiomegaly. Stable multilobar infiltrate throughout the right lung. Stable small infiltrate at the left lung base. Stable low lung volumes. IMPRESSION: No change from prior. Electronically signed by Howard Clancy 02/15/2017 7:22 AM
[2017-02-15] MEDS: MUCOMYST 20% INH SCH ×2 (07:32→19:30)
[2017-02-15] MEDS: PROTONIX IV SCH (08:06)
[2017-02-15] MEDS: ZOLOFT NG SCH (08:06)
[2017-02-15] MEDS: SODIUM CHLORIDE 0.9% INJ SCH (08:06)
[2017-02-15] MEDS: TOPROL XL PO SCH (08:06)
[2017-02-15] MEDS: LOVENOX SUBQ SCH (08:06)
[2017-02-15] MEDS: NICODERM PATCH TD SCH (08:06)
[2017-02-15] MEDS ORDERED: LASIX IV ONE (11:02)
--- NOTE | 2017-02-15 11:25 | PROGRESS NOTE ---
DATE: 02/15/2017 SUBJECTIVE: The patient seems awake and alert. She says she is breathing a little bit better. OBJECTIVE: Vital Signs: Blood pressure 162/95, heart rate of 83, respiratory rate of 21, temperature 97.3 degrees, 93% on 4 L. Cardiovascular: Regular rate and rhythm. Pulmonary: Bilateral breath sounds clear to auscultation. GI: Soft, nontender, nondistended. Bowel sounds are positive. Respiratory: She had rales and rhonchi on the right side. Laboratory Data: White count is normal at 4, hemoglobin and hematocrit 10 and 32, platelets 385,000. ABG looks okay. CMP looks okay. Creatinine 0.2, albumin 3. Chest x-ray shows multilobar infiltrates on the right side. ASSESSMENT AND PLAN: 1. Methicillin-resistant Staphylococcus aureus pneumonia, multilobar. We will continue intravenous vancomycin. She seems to be clinically improving on that, although still has a decent oxygen requirement. 2. Acute respiratory failure, hypoxic. She has been extubating. We are working on weaning her ventilator. Pulmonary is following. She is on Mucomyst, DuoNebs. I will add incentive spirometry and Acapella. We will follow. 3. Tobacco dependence. She seems to be stable. DISPOSITION: Pending resolution of her issues. We are weaning oxygen very slowly, although I anticipate that she will probably oxygen to go home with. cc: Raji Fernandez MD
[2017-02-15] MEDS: HALDOL IV PRN (15:40)
--- NOTE | 2017-02-15 22:02 | PROGRESS NOTE ---
DATE: 02/15/2017 PRESENT ILLNESS: The patient is being treated for a methicillin-resistant Staph aureus pneumonia. MEDICATIONS: This is day 15 of treatment with vancomycin. PHYSICAL EXAMINATION: Vital Signs: Temperature is 97.5 degrees. Pulse 84. Respirations 21. Blood pressure 143/90. General: This is an ill-appearing, lethargic elderly female. She is in no acute distress. Lungs: Clear to auscultation. Cardiovascular: Regular heart rate. Abdomen: Soft and nontender. Neurologic: The patient is sleeping. Extremities: The patient has a PICC in the right arm. The site is not erythematous or swollen. LABORATORY AND X-RAY: Chest x-ray shows stable right lung infiltrate. CBC shows a white count of 4880, hemoglobin 10 and platelet count 385,000. Arterial blood gases show a pH of 7.41, a PO2 of 60, pCO2 of 43. Creatinine is 0.2. GFR is greater than 60. ASSESSMENT AND PLAN: 1. The patient has a methicillin-resistant Staph aureus pneumonia. My plan is to continue vancomycin. 2. Comorbidities: Include multiple myeloma, chronic obstructive pulmonary disease, cigarette smoking, sleep apnea, and gastroesophageal reflux disease. cc: John Garcia MD
[2017-02-15] MEDS: XANAX PO SCH (22:16)
[2017-02-16] MEDS: DUONEB (A & A) INH SCH ×6 (03:40→23:00)
[2017-02-16] MEDS: MORPHINE IV PRN ×5 (03:55→20:54)
[2017-02-16] MEDS: VANCOMYCIN 1,100 MG in NS 250 ML IV SCH ×2 (04:02→17:24)
[2017-02-16 05:13] LABS: ALLEN TEST YES; BE 2.4 mmoll (-3.0-3.0); BLOOD TYPE ARTERIAL; DRAW SITE R RADIAL; METHB 0.8 % (0.0-1.5); O2(CT) 14.7 mL/dL (15.0-23.0); PCO2(98.6) 42 mmHg (35-45); PO2(98.6) 57 mmHg (60-100); SAMPLE BLOOD; SAO2 91.9 % (95.0-100.0); THB 11.6 g/dL (11.5-17.4); pH(98.6) 7.42 (7.35-7.45)
[2017-02-16 05:14] LABS: MODALITY CANNULA
--- NOTE | 2017-02-16 05:58 | Diag Imaging Result Doc PS360 ---
EXAM: CHEST-PORTABLE HISTORY: dyspnea TECHNIQUE: COMPARISON: 02/15/2017. FINDINGS: No change in the right-sided PICC line. Heart remains mildly prominent. I believe there is a tiny left pleural effusion. Mild central vascular prominence is slightly less pronounced than on the prior exam. Likely atelectasis in the lower left lung. IMPRESSION: Slight interval improvement. Electronically signed by Caleb Frias 02/16/2017 5:56 AM
[2017-02-16 06:17] LABS: HEMATOCRIT 35.4 % (37.0-47.0); HEMOGLOBIN 11.1 g/dL (12.0-16.0); MCH 27.6 PG (27-31); MCHC 31.4 g/dL (33-37); MCV 88.1 FL (81-99); MPV 10.3 FL (7.4-10.4); RBC 4.02 XMIL (4.2-5.4)
[2017-02-16 06:36] LABS: AGAP 16; BUN 8 mg/dL (8-22); CALCIUM 8.5 mg/dL (8.8-10.2); CHLORIDE 99 mmol/L (98-107); COSMO 280; POTASSIUM 3.3 mmol/L (3.5-5.1); SODIUM 139 mmol/L (136-145); TCO2 24 mmol/L (25-35)
[2017-02-16] MEDS: MUCOMYST 20% INH SCH ×2 (07:54→19:25)
[2017-02-16] MEDS: LOVENOX SUBQ SCH (08:01)
[2017-02-16] MEDS: ZOLOFT NG SCH (08:01)
[2017-02-16] MEDS: TOPROL XL PO SCH (08:02)
[2017-02-16] MEDS: NICODERM PATCH TD SCH (08:02)
[2017-02-16] MEDS: SODIUM CHLORIDE 0.9% INJ SCH (08:02)
[2017-02-16] MEDS: PROTONIX IV SCH (08:02)
[2017-02-16] MEDS ORDERED: KLOR-CON PO ONE (11:08)
--- NOTE | 2017-02-16 11:41 | PROGRESS NOTE ---
DATE: 02/16/2017 SUBJECTIVE: Patient has no focal complaints. OBJECTIVE: Vital Signs: Blood pressure 154/86, heart rate of 98, respiratory rate 17 temperature 97.7 degrees, 90% on 4 L. Cardiovascular: Regular rate and rhythm. Pulmonary: Bilateral breath sounds with occasional rhonchi and wheezing. GI: Soft, nontender, nondistended. Bowel sounds are positive. PROBLEM LIST: 1. Pneumonia, methicillin-resistant Staphylococcus aureus. We will continue vancomycin. She is on at least day 9 of treatments. 2. Acute respiratory failure. We are weaning O2. She is down to 4 L and seems to be stable with 90-94% saturations. 3. Anemia appears to be stable. DISPOSITION: I think she is probably okay to be transferred to step-down. We will progress with that today. Continue to follow closely. cc: Raji Fernandez MD
[2017-02-16] MEDS: HALDOL IV PRN ×2 (13:56→23:17)
--- NOTE | 2017-02-16 18:22 | PROGRESS NOTE ---
DATE: 02/16/2017 PRESENT ILLNESS: The patient is being treated for a methicillin-resistant Staph aureus pneumonia. MEDICATIONS: She has been receiving vancomycin now for 16 days. PHYSICAL EXAMINATION: Vital Signs: Temperature is 97 degrees, pulse 88, respirations 20, blood pressure 128/84. General: This is a chronically ill-appearing, elderly female. She is much more alert today. Cardiovascular: Regular heart rate. Lungs: There were a few rhonchi bilaterally. Cardiovascular: Heart rate is regular. Abdomen: Soft and nontender. Extremities: Patient has a PICC in her right arm. The site is not erythematous or draining. Thorax: Patient has an increased AP diameter of the chest. LAB AND X-RAY: CBC shows a white count of 5910, hemoglobin 11.1, and platelet count 430,000. Blood gases show a pH of 7.42, a PO2 of 57, a pCO2 of 42. Creatinine 0.4. GFR is greater than 60. The chest x-ray shows decreased vascular prominence. ASSESSMENT AND PLAN: Patient has a methicillin-resistant Staphylococcus aureus pneumonia. My plan is to continue vancomycin. COMORBIDITIES: Include multiple myeloma, COPD, cigarette smoking, sleep apnea, and gastroesophageal reflux disease. cc: John Garcia MD
[2017-02-16] MEDS: XANAX PO SCH (21:22)
[2017-02-17] MEDS: DUONEB (A & A) INH SCH ×6 (03:40→23:07)
[2017-02-17 04:38] LABS: ALLEN TEST YES; BE 4.6 mmoll (-3.0-3.0); BLOOD TYPE ARTERIAL; DRAW SITE R RADIAL; METHB 1.2 % (0.0-1.5); O2(CT) 13.8 mL/dL (15.0-23.0); PCO2(98.6) 46 mmHg (35-45); PO2(98.6) 57 mmHg (60-100); SAMPLE BLOOD; SAO2 92.4 % (95.0-100.0); THB 10.9 g/dL (11.5-17.4); pH(98.6) 7.42 (7.35-7.45)
[2017-02-17 04:39] LABS: MODALITY CANNULA
[2017-02-17] MEDS: VANCOMYCIN 1,100 MG in NS 250 ML IV SCH ×2 (06:00→18:00)
[2017-02-17] MEDS: MORPHINE IV PRN ×4 (06:07→20:07)
[2017-02-17 06:23] LABS: HEMATOCRIT 34.8 % (37.0-47.0); HEMOGLOBIN 10.5 g/dL (12.0-16.0); MCH 27.6 PG (27-31); MCHC 30.2 g/dL (33-37); MCV 91.6 FL (81-99); MPV 10.4 FL (7.4-10.4); RBC 3.8 XMIL (4.2-5.4)
[2017-02-17 06:42] LABS: MAGNESIUM 1.8 mg/dL (1.5-2.7)
[2017-02-17 06:57] LABS: AGAP 14; BUN 12 mg/dL (8-22); CALCIUM 8.4 mg/dL (8.8-10.2); CHLORIDE 102 mmol/L (98-107); COSMO 280; SODIUM 141 mmol/L (136-145); TCO2 25 mmol/L (25-35)
--- NOTE | 2017-02-17 07:32 | Diag Imaging Result Doc PS360 ---
EXAM: CHEST-PORTABLE INDICATION: dyspnea TECHNIQUE: One view COMPARISON: 02/16/2017 FINDINGS: Right PICC line is stable. The patient is rotated toward the left. Inspiration is suboptimal. Central vascular prominence appears to have worsened, especially on the right. This may be, at least in part, due to the patient's rotation, however. There is increased opacity at the right lung base suggesting worsening edema and/or infiltrate. There is persistent mild atelectasis at the left lung base. Cardiac silhouette is stable. IMPRESSION: Increasing central vasculature especially on the right and increased opacity at the right lower lung zone as described. Electronically signed by John Aponte 02/17/2017 7:30 AM
[2017-02-17] MEDS: MUCOMYST 20% INH SCH ×2 (07:33→20:05)
[2017-02-17] MEDS: ZOLOFT NG SCH (08:31)
[2017-02-17] MEDS: TOPROL XL PO SCH (08:31)
[2017-02-17] MEDS: LOVENOX SUBQ SCH (08:31)
[2017-02-17] MEDS: SODIUM CHLORIDE 0.9% INJ SCH (08:31)
[2017-02-17] MEDS: NICODERM PATCH TD SCH (08:31)
[2017-02-17] MEDS: PROTONIX IV SCH (08:31)
--- NOTE | 2017-02-17 11:11 | PROGRESS NOTE ---
DATE: 02/17/2017 SUBJECTIVE: Today, Ms. Bermudez refers to be doing a lot better. She does not have any acute medical complaints. OBJECTIVE: Vital Signs: Blood pressure is 130/96, pulse 84, respirations 18, temperature 98.7 degrees. General: Ms. Bermudez is a 71-year-old female. She is in bed. She did not seem to be in any distress. Mucosa is pink and moist. Anicteric. Acyanotic. Neck is supple. Chest: Good air entry bilaterally. Few bibasilar crepitations. Cardiovascular: Regular rate and rhythm. Abdomen is soft. Extremities: No pedal edema. There is a Paez catheter in place. ENGINEERING PROFESSIONALS: The patient is alert. There is residual tremor in all extremities including the head which gets worse with intention. LABORATORY DATA: WBC is 6.06, hemoglobin is 10.5, platelet count of 380,000. Chemistries reviewed and completely unremarkable. A chest x-ray done today shows increasing central vasculature especially on the right and increased opacity in the right lower lung. CURRENT MEDICATIONS: 1. Tylenol. 2. Mucomyst for breathing treatment. 3. Xanax 1.5 at bedtime. 4. Lovenox 40 subcutaneous. 5. Haldol p.r.n. 6. Metoprolol 25 mg daily. 7. Vancomycin. 8. Nicotine patch. 9. Pantoprazole 40 mg IV 10. Zoloft 100 mg. ASSESSMENT: 1. Methicillin-resistant Staphylococcus aureus pneumonia. The patient is on vancomycin, being followed by Dr. Garcia. A chest x-ray done today actually shows slight worsening of the right lower lobe infiltrates. 2. Acute respiratory failure, improving. 3. History of chronic obstructive pulmonary disease. 4. Active tobacco use at home. 5. Intentional tremor likely due to essential tremor. We will start the patient on primidone. So, in general, I think Ms. Bermudez is relatively stable. There is a plan either to let her go to an LTAC or a rehab center. I think either one of the disposition plans is great. She can go to a SNF, continue with the IV antibiotics and continue aggressive PT. We are going to go ahead and discontinue the Paez catheter and get a marriage and family social worker arrangement for her discharge. cc: MD JENIFER Silvestre
[2017-02-17] MEDS: HALDOL IV PRN (13:42)
--- NOTE | 2017-02-17 18:33 | PROGRESS NOTE ---
DATE: 02/17/2017 PRESENT ILLNESS: The patient is being treated for a methicillin-resistant Staph aureus pneumonia. MEDICATIONS: Patient is on vancomycin. This is the 17th day of treatment with that antibiotic. PHYSICAL EXAMINATION: Vital Signs: Temperature is 98.4 degrees, pulse 83, respirations 19, blood pressure 130/90. General: This is a chronically ill-appearing, elderly female. She is in no acute distress. Lungs: There were a few rhonchi heard bilaterally. Cardiovascular: Heart rate was irregular. Abdomen: Soft and nontender. Neurologic: Patient has continual movements of her lips. This has been going on for a long time according to the daughter. Thorax: Patient has an increased AP diameter of the chest. LAB AND X-RAY: Chest x-ray shows an increase in the right-sided opacity. The patient's CBC shows a white count of 6060, hemoglobin 10.5, and platelet count 380,000. Blood gases show a pH of 7.42, a PO2 of 57, a pCO2 of 46. Creatinine 0.3. GFR is greater than 60. ASSESSMENT AND PLAN: Patient has a methicillin-resistant Staph aureus pneumonia. I plan to continue vancomycin even though the chest x-ray looks as though there may be an increase in the right-sided opacity. Clinically she is doing much better. COMORBIDITIES: Include multiple myeloma, COPD, cigarette smoking, sleep apnea, and gastroesophageal reflux disease. cc: John Garcia MD
[2017-02-17] MEDS: XANAX PO SCH (20:07)
[2017-02-17] MEDS ORDERED: MYSOLINE PO SCH (21:00)
[2017-02-18] MEDS: DUONEB (A & A) INH SCH ×4 (04:08→16:04)
[2017-02-18] MEDS: VANCOMYCIN 1,100 MG in NS 250 ML IV SCH ×2 (04:27→16:20)
[2017-02-18 06:18] LABS: AGAP 11; BUN 8 mg/dL (8-22); CALCIUM 8.3 mg/dL (8.8-10.2); CHLORIDE 103 mmol/L (98-107); COSMO 281; POTASSIUM 3.7 mmol/L (3.5-5.1); SODIUM 142 mmol/L (136-145); TCO2 28 mmol/L (25-35)
--- NOTE | 2017-02-18 07:17 | Diag Imaging Result Doc PS360 ---
EXAM: CHEST-PORTABLE - 02/18/2017 HISTORY: dyspnea TECHNIQUE: Portable chest 0500 COMPARISON: 02/17/2017 FINDINGS: There is been interval decrease in infiltrate on the right. There is been interval decrease in infiltrate or atelectasis at the left base. There is subsegmental atelectasis at the left base. Heart size is stable. PICC remains in place. IMPRESSION: Decrease in infiltrate on the right. Subsegmental atelectasis at left base which is decreased. Electronically signed by Demetri Loomis 02/18/2017 7:15 AM
[2017-02-18] MEDS: MUCOMYST 20% INH SCH (07:52)
[2017-02-18] MEDS: PROTONIX IV SCH (08:08)
[2017-02-18] MEDS: SODIUM CHLORIDE 0.9% INJ SCH (08:08)
[2017-02-18] MEDS: LOVENOX SUBQ SCH (08:08)
[2017-02-18] MEDS: NICODERM PATCH TD SCH (08:08)
[2017-02-18] MEDS: TOPROL XL PO SCH (08:09)
[2017-02-18] MEDS: ZOLOFT NG SCH (08:09)
[2017-02-18] MEDS: MORPHINE IV PRN ×2 (08:16→16:23)
--- NOTE | 2017-02-18 10:58 | DISCHARGE SUMMARY ---
ADMISSION DATE: 01/31/2017 DISCHARGE DATE: 02/18/2017 CONSULTATIONS: 1. Dr. Osborn, Pulmonology. 2. Dr. John Garcia with Infectious Disease. PERTINENT PROCEDURES: 1. Chest x-ray showed dense infiltrate throughout the right lung. Left lung was clear. 2. Pulmonary arteriogram showed right upper and bilateral lobe pneumonia, COPD. No evidence of PE. DISCHARGE DIAGNOSES: 1. Methicillin-resistant staphylococcus aureus pneumonia, followed by Dr. John Garcia with Infectious Disease. She will continue on vancomycin. Clinically improved. 2. Acute respiratory failure, improved. 3. History of chronic obstructive pulmonary disease. 4. Active tobacco use at home. Smoking cessation as well as the means to quit were discussed daily. 5. Intentional tremor, likely due to essential tremor. The patient was started on primidone. HOSPITAL COURSE: Ms. Bermudez is a 71-year-old female with a history of COPD, noncompliant with O2, continued nicotine dependence, anxiety, depression, and osteoporosis, who presented to the ED in acute respiratory failure. The patient was intubated and sedated in the ED. Per the family, she had went a week earlier to her PCP, and was prescribed antibiotics for rattling in her chest. On the early learning teacher of her admission, she woke up gasping for air and was confused. Her O2 saturations on initial arrival were 50% to 70%, where she was promptly intubated. Her chest x-ray did show complete whiteout of the right lung, highly suspicious for pneumonia, although her laboratory data was largely unremarkable. She did have a mildly elevated lactate at 2.5. Her white count was low. She was febrile. She was admitted for acute hypoxemic respiratory failure secondary to severe pneumonia. Pulmonology was consulted for ventilator management, as well as started on broad-spectrum antibiotics, bronchodilators, and aggressive pulmonary toilet. For sepsis, again she was continued on broad-spectrum antibiotics as well as IV fluid resuscitation. The patient stayed several days in the ICU, being mechanically ventilated. On 02/11/2017, the patient was successfully extubated. The patient spent several more days in the ICU, weaning her oxygen very slowly. She was eating. She was having bowel movements. The patient was set to be transferred to a step-down unit on 02/16/2017. However, due to lack of beds, the patient remained in the ICU. Management Specialist was consulted for rehab placement and/or LTAC placement since the patient was going to continue on IV antibiotics, as well as aggressive physical therapy. The patient did choose rehab. She has been accepted to [facility], which she will be discharged there today. VITAL SIGNS: Temperature is 97.8 degrees, heart rate 93, respirations 26, blood pressure is 148/92, O2 is 92% on 4 L nasal cannula. DISCHARGE DIET: Mechanical soft with Ensure. DISCHARGE MEDICATIONS: As per Dr. Walter. Please see MAR. FOLLOWUP: The patient is being discharged to [facility]. She has been advised daily against smoking cessation. She will continue with IV antibiotics with vancomycin as per Dr. John Garcia, and will follow up with him as indicated. The patient can return to the ED for any worsening of symptoms. TIME SPENT: Discharge time was greater than 30 minutes. Dictated by BENY Wing for Kash Walter MD cc: Kash Walter MD MTDD
[2017-02-18] MEDS: HALDOL IV PRN (12:23)
[2017-02-18 16:08] VITALS: BP 162/96
== END 2017-02-18 17:00 ==
LOC: ED 05:40 → ICU 08:09 → SUATTDRO 08:09
PROVIDERS: ATTEND Internal Medicine

== ENCOUNTER 2017-03-03 02:06 | Inpatient (IN) ==
[2017-03-03] MEDS ORDERED: DUONEB (A & A) INH ONE (02:24)
[2017-03-03 02:25] LABS: ALLEN TEST YES; BE 5.9 mmoll (-3.0-3.0); BLOOD TYPE ARTERIAL; DRAW SITE R RADIAL; METHB 0.4 % (0.0-1.5); O2(CT) 12.7 mL/dL (15.0-23.0); PO2(98.6) 52 mmHg (60-100); SAMPLE BLOOD; SAO2 90.2 % (95.0-100.0); THB 10.3 g/dL (11.5-17.4); pH(98.6) 7.37 (7.35-7.45)
[2017-03-03 02:26] LABS: MODALITY BI PAP; PCO2(98.6) 56 mmHg (35-45)
[2017-03-03] MEDS ORDERED: ZOFRAN IV ONE ×2 (02:28→06:15)
[2017-03-03] MEDS ORDERED: ZOFRAN ONE (02:30)
[2017-03-03 02:59] LABS: MANUAL DIFF NEEDED? NO
[2017-03-03 03:02] LABS: BASO% 0.4 % (0.0-0.8); EOS# 0.07 X1000 (0.0-0.7); EOS% 1.5 % (0.0-10.0); HEMATOCRIT 36.3 % (37.0-47.0); HEMOGLOBIN 11.1 g/dL (12.0-16.0); IMM GRAN# 0.02 X1000 (0.0-0.04); IMM GRAN% 0.4 % (0.0-0.5); LYMPH# 1.14 X1000 (1.2-3.4); LYMPH% 23.7 % (20.5-51.1); MCH 27.5 PG (27-31); MCHC 30.6 g/dL (33-37); MCV 89.9 FL (81-99); MONO# 0.32 X1000 (0.11-0.59); MONO% 6.7 % (1.7-9.3); MPV 10.9 FL (7.4-10.4); NEUT% 67.3 % (42.2-75.2); PLT 200 X1000 (130-400); RBC 4.04 XMIL (4.2-5.4)
[2017-03-03 03:21] LABS: PROTIME 10.5 Seconds (9.2-11.7); PTT 27.1 Seconds (22.0-36.0)
[2017-03-03] MEDS ORDERED: VANCOMYCIN 1 GM/NS 1 GM/250 ML IVPB IV ONE (03:28)
[2017-03-03 03:30] LABS: AGAP 13; ALBUMIN 3.4 g/dL (3.5-5.0); ALKALINE PHOSPHATASE 68 U/L (32-104); BUN 7 mg/dL (8-22); CALCIUM 9.5 mg/dL (8.8-10.2); CHLORIDE 95 mmol/L (98-107); CK PROFILE 20 U/L (24-173); COSMO 272; GOT 13 U/L (10-30); GPT 10 U/L (10-36); MAGNESIUM 1.7 mg/dL (1.5-2.7); POTASSIUM 4.3 mmol/L (3.5-5.1); SODIUM 137 mmol/L (136-145); TCO2 29 mmol/L (25-35); TOTAL BILIRUBIN 0.17 mg/dL (0.20-1.00); TOTAL PROTEIN 6.4 g/dL (6.3-8.3)
[2017-03-03] MEDS ORDERED: MERREM 1 GM in NS 50 ML IV ONE (03:57)
--- NOTE | 2017-03-03 04:13 | PROVIDER DOCUMENTATION ---
This chart was entered by Sophia Soares Scribe, acting as scribe for Isai Pool MD. HPI-Respiratory General - General Stated Complaint: RESPIRATORY DISTRESS Time Seen by Provider: 03/03/17 02:06 Source: patient, EMS Allergies/Adverse Reactions: Patient Allergies Allergy/AdvReac Type Severity Reaction Status Date / Time tazobactam sodium * Allergy Severe ABDOMINAL Verified 01/31/17 06:46 [From Zosyn] PAIN Home Medications: Home Medication List Medication Instructions Recorded Confirmed Last Taken Type Albuterol Sulfate [Ventolin Hfa] 4 puff IH 4XDAY PRN PRN 06/24/12 01/31/1709/14 History Albuterol [Albuterol Neb] 2.5 mg INH Q4H PRN PRN 06/24/12 01/31/17 09/14/16 History Folic Acid 1 mg PO DAILY 06/24/12 01/31/17 09/14/16 History Tiotropium Ironside Inhaler 1 puff INH RTDAILY 06/24/12 01/31/17 09/14/16 History [Spiriva] Doxepin [Sinequan] 10 mg PO HS 09/15/16 01/31/17 09/14/16 History Pregabalin [Lyrica] 75 mg PO QHS 09/15/16 01/31/17 09/14/16 History Alprazolam 1.5 mg PO QHS 01/31/17 01/31/17 Unknown History Esomeprazole [Nexium] 40 mg PO DAILY 01/31/17 01/31/17 Unknown History Risedronate Sodium 150 mg PO Q30D 01/31/17 01/31/17 Unknown History Roflumilast [Daliresp] 500 mcg PO DAILY 01/31/17 01/31/17 Unknown History Sertraline [Zoloft] 100 mg PO DAILY 01/31/17 01/31/17 Unknown History Tizanidine HCl 8 mg PO QHS 01/31/17 01/31/17 Unknown History Albuterol 2.5MG/Ipratrop 0.5MG 3 ml INH Q2H PRN PRN #0 neb 02/18/17 Unknown Rx [Duoneb (A & A)] Albuterol 2.5MG/Ipratrop 0.5MG 3 ml INH RTQ4H neb 02/18/17 Unknown Rx [Duoneb (A & A)] Metoprolol Succinate E.r. [Toprol 25 mg PO DAILY tablet 02/18/17 Unknown Rx Xl] Nicotine Patch [Nicoderm Patch] 14 mg TD DAILY patch.td24 02/18/17 Unknown Rx Primidone [Mysoline] 50 mg PO QHS tablet 02/18/17 Unknown Rx - History of Present Illness-Resp Nature of Presenting Problem: 71 Y/O F presents to ED with Respiratory distress. Pt was brought in by EMS with acute extreme res. distress. EMS states pt had no wheezing and was stating <50. Pt was here last week for pneumonia and was admitted to the ICU. Pt was just sent home from rehab. EMS states Pt lungs were wet and she was hypotensive. Pt is on 2L on O2. Quality of Pain: reports: tightness Severity in ED: reports: severe Onset/Duration: reports: this morning Timing: reports: still present Cough Quality/Degree: reports: no cough Associated Symptoms: reports: shortness of breath. denies: chest pain/soreness , dizziness Similar Symptoms Previously?: Yes Recently seen or treated by another doctor?: Yes Review of Systems - Adult - REVIEW OF SYSTEMS - ADULT Constitutional: denies: chills, fever Eyes: reports: no symptoms reported Ears, Nose, Mouth & Throat: reports: no symptoms reported Cardiovascular: denies: chest pain Respiratory: reports: shortness of breath. denies: cough Gastrointestinal: reports: no symptoms reported Genitourinary: reports: no symptoms reported Musculoskeletal: reports: no symptoms reported Integumentary: reports: no symptoms reported Neurological: reports: no symptoms reported Psychiatric: reports: no symptoms reported Endocrine: reports: no symptoms reported Hematologic/Lymphatic: reports: no symptoms reported Allergic/Immunologic: reports: no symptoms reported All Other Systems: Reviewed and Negative Past History - Adult - PAST MEDICAL HISTORY-ADULT Review of Records: reports: Old Records Reviewed, Nursing Assessment Review, Medications Reviewed, Social history reviewed & non-contributory. Major Childhood Illnesses: reports: denies history Cardiovascular: reports: CHF, HTN, hyperlipidemia Respiratory: reports: COPD, sleep apnea Gastrointestinal: reports: GERD Obstetrical/Gynecological: reports: denies history Genitourinary: reports: denies history Musculoskeletal: reports: denies history Neurological: reports: denies history Endocrine/Immune: reports: denies history Other Conditions: reports: denies history - PRIOR SURGERIES/PROCEDURES Surgical/Procedure History: reports: appendectomy, hysterectomy, tonsillectomy - IMMUNIZATION STATUS Childhood Immunizations: See Nurse Assessment Flu Vaccine: See Nurse Assessment - FAMILY HISTORY Family History: reviewed, not pertinent Physical Exam-General - CONSTITUTIONAL General Appearance: alert, severe distress - EYES Eyes: PERRL/EOMI, pink conjunctivae - HEAD, EARS, NOSE, MOUTH & THROAT HENMT: moist mucous membranes, normal ENT inspection, TMs normal, pharynx normal - NECK Neck: full range of motion, supple, normal inspection - RESPIRATORY Respiratory: chest non-tender, respiratory distress, decreased breath sounds, accessory muscle use, rales, rhonchi, increased rate - CARDIOVASCULAR Cardiovascular: regular rate, rhythm, tachycardia. negative: no edema, no JVD - GASTROINTESTINAL (ABDOMEN) Abdominal Exam: non tender, soft, distended - LYMPHATIC Lymphatic: no adenopathy - MUSCULOSKELETAL Back Exam: normal inspection Extremity: normal range of motion - SKIN Integumentary: normal color, normal turgor, warm/dry - PSYCHIATRIC Psych/Mental Status: normal mood/affect, normal thought content, normal thought process, oriented x 3 Progress - PLAN OF CARE/RESULTS Progress/Plan/Lab Results: Vital Signs - 8 hr 03/03/17 02:33 03/03/17 03:00 03/03/17 03:15 Temperature 101.8 F H Pulse Rate 98 H 105 H Respiratory Rate 25 H 22 Blood Pressure 131/93 182/139 O2 Sat by Pulse Oximetry 93 L 92 L Laboratory Results - last 24 hr 03/03/17 03/03/17 03/03/17 02:20 02:20 02:20 WBC 4.81 RBC 4.04 L Hgb 11.1 L Hct 36.3 L MCV 89.9 MCH 27.5 MCHC 30.6 L RDW Std Deviation 15.0 H Plt Count 200 MPV 10.9 H Immature Gran % (Auto) 0.4 Neut % (Auto) 67.3 Lymph % (Auto) 23.7 [place] % (Auto) 6.7 Eos % (Auto) 1.5 Baso % (Auto) 0.4 Immature Gran # (Auto) 0.02 Neut # (Auto) 3.24 Lymph # (Auto) 1.14 L [place] # (Auto) 0.32 Eos # (Auto) 0.07 Baso # (Auto) 0.02 PT INR PTT (Actin FS) D-Dimer Specimen Type ARTERIAL Sample Site R RADIAL pH 7.37 pCO2 56 H* pO2 52 L HCO3 29.3 H Base Excess 5.9 H Oxyhemoglobin 87.7 L* ABG O2 Sat (Calculated) 12.7 L ABG O2 Saturation 90.2 L ABG Carboxyhemoglobin 2.30 ABG Methemoglobin 0.4 Keyon Test YES A-a O2 Difference 591.0 Total Hemoglobin 10.3 L Lactate 1.80 Blood Gas Modality BI PAP Vent Mode BIPAP FiO2 % 100.0 Inspiratory BiPAP 20.0 Expiratory BiPAP 15.0 Sodium 137 Potassium 4.3 Chloride 95 L Carbon Dioxide 29 Anion Gap 13 BUN 7 L Creatinine 0.4 L Estimated GFR/1.73 m2 > 60 BUN/Creatinine Ratio 18 Glucose 110 H Calculated Osmolality 272 Calcium 9.5 Magnesium 1.7 Total Bilirubin 0.17 L AST 13 ALT 10 Alkaline Phosphatase 68 Creatine Kinase 20 L Troponin T Wyv-F-Rafpsidcnak Pept Total Protein 6.4 Albumin 3.4 L Globulin 3.0 Albumin/Globulin Ratio 1.1 Plasma Lactate 03/03/17 03/03/17 03/03/17 02:20 02:20 02:20 WBC RBC Hgb Hct MCV MCH MCHC RDW Std Deviation Plt Count MPV Immature Gran % (Auto) Neut % (Auto) Lymph % (Auto) [place] % (Auto) Eos % (Auto) Baso % (Auto) Immature Gran # (Auto) Neut # (Auto) Lymph # (Auto) [place] # (Auto) Eos # (Auto) Baso # (Auto) PT 10.5 INR 1.00 PTT (Actin FS) 27.1 D-Dimer 1.46 H Specimen Type Sample Site pH pCO2 pO2 HCO3 Base Excess Oxyhemoglobin ABG O2 Sat (Calculated) ABG O2 Saturation ABG Carboxyhemoglobin ABG Methemoglobin Keyon Test A-a O2 Difference Total Hemoglobin Lactate Blood Gas Modality Vent Mode FiO2 % Inspiratory BiPAP Expiratory BiPAP Sodium Potassium Chloride Carbon Dioxide Anion Gap BUN Creatinine Estimated GFR/1.73 m2 BUN/Creatinine Ratio Glucose Calculated Osmolality Calcium Magnesium Total Bilirubin AST ALT Alkaline Phosphatase Creatine Kinase Troponin T Eis-P-Ltdloitqwic Pept 199 Total Protein Albumin Globulin Albumin/Globulin Ratio Plasma Lactate 03/03/17 03/03/17 02:20 02:20 WBC RBC Hgb Hct MCV MCH MCHC RDW Std Deviation Plt Count MPV Immature Gran % (Auto) Neut % (Auto) Lymph % (Auto) [place] % (Auto) Eos % (Auto) Baso % (Auto) Immature Gran # (Auto) Neut # (Auto) Lymph # (Auto) [place] # (Auto) Eos # (Auto) Baso # (Auto) PT INR PTT (Actin FS) D-Dimer Specimen Type Sample Site pH pCO2 pO2 HCO3 Base Excess Oxyhemoglobin ABG O2 Sat (Calculated) ABG O2 Saturation ABG Carboxyhemoglobin ABG Methemoglobin Keyon Test A-a O2 Difference Total Hemoglobin Lactate Blood Gas Modality Vent Mode FiO2 % Inspiratory BiPAP Expiratory BiPAP Sodium Potassium Chloride Carbon Dioxide Anion Gap BUN Creatinine Estimated GFR/1.73 m2 BUN/Creatinine Ratio Glucose Calculated Osmolality Calcium Magnesium Total Bilirubin AST ALT Alkaline Phosphatase Creatine Kinase Troponin T < 0.010 Gbv-J-Wiwzhughdvf Pept Total Protein Albumin Globulin Albumin/Globulin Ratio Plasma Lactate 1.7 Orders Category Date Time Status Cardiac Monitoring DIRECTED Care 03/03/17 02:49 Active Paez Cath Insertion ORDERED Care 03/03/17 02:51 Active Saline Loc NOW Care 03/03/17 02:49 Active CHEST-PORTABLE [RAD] Stat Exams 03/03/17 02:10 Taken ABG [RESP] Routine Lab 03/03/17 02:20 Completed BLOOD CULTURE [BLDCUL] Stat Lab 03/03/17 02:20 Results CBC WITH ELECTRONIC DIFF [HEME] Stat Lab 03/03/17 02:20 Completed CK PROFILE [SP CHEM] Stat Lab 03/03/17 02:20 Completed COMPREHENSIVE METABOLIC PANEL [CHEM] Stat Lab 03/03/17 02:20 Completed D-DIMER [CHEM] Stat Lab 03/03/17 02:20 Completed LACTATE, PLASMA [CHEM] Stat Lab 03/03/17 02:20 Completed MAGNESIUM [CHEM] Stat Lab 03/03/17 02:20 Completed PRO B-NATRIURETIC PEPTIDE Stat Lab 03/03/17 02:20 Completed PROTIME WITH INR [COAG] Stat Lab 03/03/17 02:20 Completed PTT [COAG] Stat Lab 03/03/17 02:20 Completed TROPONIN T Stat Lab 03/03/17 02:20 Completed Albuterol 2.5MG/Ipratrop 0.5MG [Duoneb (A & A)] Med 03/03/17 02:24 Discontinued 3 ml INH NOW ONE Meropenem [Merrem] 1 gm Med 03/03/17 03:57 Ordered 0.9% Sodium Chloride Inj [Ns] 50 ml IV NOW Ondansetron [Zofran] Med 03/03/17 02:30 Discontinued 4 mg .ROUTE .STK-MED ONE Ondansetron [Zofran] Med 03/03/17 02:28 Discontinued 4 mg IV NOW ONE Vancomycin 1 gm/Ns Med 03/03/17 03:28 Active 1 gm in 250 ml IV NOW Aerosol Treatments Routine Oth 03/03/17 02:25 Active Aerosol Treatments Stat Oth 03/03/17 02:25 Active EKG [EKG] Stat Ther 03/03/17 02:11 Ordered Result Diagrams: 03/03/17 02:20 03/03/17 02:20 - REASSESSMENT Reassessment #1 Status: improving (Profoundly ill but improving, at least BP increased, dopamine off, O2 sat 94% on CPAP. I met with family members who indicate that she would like to be on vent again if need be) - EKG 1 Time of EKG reading by physician:: 02:01 EKG Read and Signed by:: Isai Pool EKG Interpretation (*Must complete 3 of following elements*): Normal Rate: 85 Rhythm: NSR with S/A Comments: Abnormal ECG ,Septal infract - XRAY 1 XRAY Study: Chest Impression: Abnormal XRAY Interpretation: pneumonia Departure - Departure Date of Disposition Decision: 03/03/17 Time of Disposition Decision: 04:06 DIAGNOSIS: Pneumonia Qualifiers: Pneumonia type: due to methicillin-resistant Staphylococcus aureus (MRSA) Laterality: right Lung location: lower lobe of lung Qualified Code(s): J15.212 - Pneumonia due to Methicillin resistant Staphylococcus aureus Disposition: ADMITTED INPATIENT 09 Certified Medical Emergency: Emergent Condition: Critical Referrals and Follow-Ups: Umberto Beckman [Primary Care Provider] - - Critical Care Note This patient required my direct & personal management of CC.: Yes Total Time (mins): 60 Critical Care Statement: This patient required my direct personal management to treat or rule out processes, the absence of which, could potentiallly result in sudden, clinically significant life or limb threatening deterioration. This chart was documented by the indicated scribe, (Sophia Soares, Scribfernanda) and accurately reflects the services I performed and decisions made by me, Isai Pool MD, as attested by the provider's signature.
--- NOTE | 2017-03-03 05:27 | EKG Report ---
Test Performed on : 03/03/2017 02:01:46 AM Test Reason : SOB Blood Pressure : / mmHG Vent. Rate : 085 BPM Atrial Rate : 085 BPM P-R Int : 136 ms QRS Dur : 078 ms QT Int : 394 ms P-R-T Axes : -19 013 018 degrees QTc Int : 468 ms Normal sinus rhythm. with sinus arrhythmia. Septal infarct , age undetermined Abnormal ECG No previous ECGs available Unconfirmed Result
[2017-03-03 06:44] LABS: ALLEN TEST YES; BE 3.4 mmoll (-3.0-3.0); BLOOD TYPE ARTERIAL; DRAW SITE R RADIAL; METHB 0.9 % (0.0-1.5); O2(CT) 13.9 mL/dL (15.0-23.0); PO2(98.6) 52 mmHg (60-100); SAMPLE BLOOD; SAO2 90.2 % (95.0-100.0); SRATE 4 BPM; THB 11.2 g/dL (11.5-17.4); pH(98.6) 7.34 (7.35-7.45)
[2017-03-03 06:46] LABS: MODALITY BI PAP; PCO2(98.6) 56 mmHg (35-45)
[2017-03-03] MEDS ORDERED: NS 1,000 ML IV ONE (07:32)
[2017-03-03] MEDS ORDERED: DUONEB (A & A) INH PRN (07:32)
--- NOTE | 2017-03-03 07:41 | Diag Imaging Result Doc PS360 ---
CHEST-PORTABLE - 03/03/2017 INDICATION: RESPIRATORY DISTRESS TECHNIQUE: COMPARISON: 02/18/2017 FINDINGS: There is new multilobar infiltrate throughout the right lung. There are some stable to improving linear atelectasis at the left midlung and base. Heart size remains top normal. No pneumothorax or large effusion. IMPRESSION: New multilobar infiltrates on the right side concerning for pneumonia or aspiration. Electronically signed by Howard Clancy 03/03/2017 7:38 AM
[2017-03-03] MEDS ORDERED: MORPHINE IV PRN (08:13)
[2017-03-03] MEDS: MORPHINE IV PRN ×2 (08:40→20:40)
--- NOTE | 2017-03-03 08:44 | PROGRESS NOTE ---
DATE: 03/03/2017 PRESENT ILLNESS: The patient is readmitted to the hospital. She had been treated for pneumonia. She comes in now with pneumonia involving multiple lobes on the right side. MEDICATIONS: The patient has been started on Zyvox and meropenem. PHYSICAL EXAMINATION: Vital Signs: Temperature is 98.5 degrees, pulse 111, respirations 26, blood pressure 112/73. General: This is an ill-appearing, elderly female. She has a BiPAP mask on. Lungs: Have bilateral rhonchi. Cardiovascular: Heart rate is regular and rapid. Abdomen: Soft and nontender. Neurologic: The patient is somewhat lethargic but she did follow requests to move her extremities. There is no tremor. Integument: No rash noted. LAB AND X-RAY: Chest x-ray shows a new right multilobar infiltrate. Liver function studies are normal. CBC has a white count of 4810, hemoglobin 11.1, and platelet count 200,000. Blood gases show a pH of 7.34, a PO2 of 52, and a pCO2 of 56. Creatinine is 0.4. GFR is greater than 60. ASSESSMENT AND PLAN: Patient is admitted to the hospital. She just had been released from the hospital and went to a rehab facility for a methicillin-resistant Staphylococcus aureus pneumonia. Plan will be to continue with meropenem and Zyvox pending blood and sputum culture results. I have ordered immunoglobulin levels, namely IgG and IgA that are the ones of interest to me. COMORBIDITIES: Include multiple myeloma, COPD, cigarette smoking, sleep apnea, and gastroesophageal reflux disease. cc: John Garcia MD
--- NOTE | 2017-03-03 08:57 | Diag Imaging Result Doc PS360 ---
KUB ABDOMEN - 03/03/2017 INDICATION: Abdominal Pain/ Tenderness TECHNIQUE: COMPARISON: None FINDINGS: There is a nonobstructive bowel gas pattern. No free air or abdominal calcifications. IMPRESSION: No acute disease. Electronically signed by Howard Clancy 03/03/2017 8:55 AM
--- NOTE | 2017-03-03 09:28 | CONSULTATION ---
DATE OF CONSULTATION: 03/03/2017 REFERRING PHYSICIAN: Dr. Viera. CHIEF COMPLAINT: Respiratory distress. HISTORY OF PRESENT ILLNESS: This is a 71-year-old female with a past medical history of COPD, sleep apnea, anxiety and depression, osteoporosis, chronic pain, GERD who presented to the hospital with complaints of shortness of breath. She has been admitted with the findings of multilobar infiltrates on the right. She was recently admitted to the hospital for the same illness, found to be hypotensive upon EMS arrival. She is currently tolerating BiPAP well. REVIEW OF SYSTEMS: A 10-point review of systems was conducted and pertinent as noted in the HPI, otherwise noncontributory. PAST MEDICAL HISTORY: As mentioned in the HPI, otherwise noncontributory. PAST SURGICAL HISTORY: Hysterectomy and appendectomy. SOCIAL HISTORY: The patient continues to smoke. It is unclear exactly how much , but she is also using electronic cigarettes. No definite history of alcohol or illicit drug use. She lives at home with her and daughter. ALLERGIES: Zosyn. ACTIVE MEDICATIONS: Tylenol, DuoNeb, Lovenox, Zyvox, Merrem, Toprol, morphine, Zofran, Protonix. PHYSICAL EXAMINATION: Vital signs: Temperature 98.5, heart rate 111, respiratory rate 26, blood pressure 112/73, oxygen saturation 94%. General: Awake, alert, no acute distress noted. HEENT: Normocephalic, atraumatic, CHARISMA. Cardiovascular: S1, S2 present. Chest: Reduced entry with some rhonchi bilaterally. Abdomen: Soft, nontender, nondistended, bowel sounds present in all quadrants. Extremities: Positive PMS, no edema noted. Skin: Warm, dry, and intact. Neurologic: No focal deficits. LABORATORIES AND INVESTIGATIONS: WBC 4.81, RBC 4.04, hemoglobin 11.1, hematocrit 36.6, platelet count 200. Sodium 137, potassium 4.3, chloride 95, CO2 of 29, anion gap 13, BUN 7, creatinine 0.4, glucose 110. Blood gas reveals a pH of 7.34, pCO2 of 56, pO2 of 52, HCO3 of 27.4, oxygen saturation 90%. IMAGING: Chest x-ray performed on 03/03/2017 shows multilobar infiltrates on the right side concerning for pneumonia or aspiration. ASSESSMENT AND PLAN: This is a 71-year-old female who was admitted to the hospital with multilobar infiltrates on the right. Pneumonia, respiratory failure compensating with Bipap, COPD. Continue inhaled bronchodilators, IV antibiotics , GI and DVT prophylaxis, BiPAP, and further recommendations pending diagnostic studies. Dictated by BENY Vail for Deandre Young MD cc: BENY Vail MD [facility]
--- NOTE | 2017-03-03 09:44 | HISTORY AND PHYSICAL ---
TIME: 0500. PRIMARY CARE PROVIDER: Dr. Umberto Beckman. CHIEF COMPLAINT: Altered mental status and shortness of breath. HISTORY OF PRESENT ILLNESS: Ms. Bermudez is a 71-year-old, female with a past medical history most notable for COPD on home oxygen therapy, sleep apnea, previous nicotine dependence, anxiety, depression, and chronic pain. The patient was just recently admitted to the hospital on 01/31/2017 for pneumonia and acute respiratory failure. Upon initial admission , she was placed on a ventilator. During her admission, the patient was found to have methicillin- resistant Staphylococcus aureus pneumonia. She was discharged to rehabilitation at [facility] on vancomycin IV which and was previously being followed by Dr. Garcia. The patient was discharged on 02/18/2017 and had just recently returned home from the long-term on Wednesday. Family states that she was home approximately 2 days when last night she became confused. The patient's family stated that she was talking out of her head and was not making any sense. They did call an ambulance for further assistance. EMS reported to the ER staff that upon their arrival, she was in extreme respiratory distress and was saturating initially in the 70s. She was also hypotensive prior to arrival and just after arrival to the ER with an initial blood pressure in the 80s systolically, though all blood pressure reading since then have been much improved. Actually at one point, she was hypertensive with blood pressure reaching into the 180s systolically. The patient did complain of some chest pain in the ER, though is not complaining of any active chest pain. An EKG showed normal sinus rhythm with a sinus arrhythmia at her at a rate of 85 with a QTc of 468. Initial cardiac enzymes were negative at this time. Upon further evaluation in the ER, the patient was placed on BiPAP. Blood gases were drawn right as the patient was being placed on BiPAP. She had a pH of 7.37, a pCO2 of 56, a PO2 of 52, and an HCO3 of 29.3, with an O2 saturation of 90.2. This was on BiPAP at 100%. A chest x-ray showed new multilobular infiltrates on the right side, concerning for pneumonia At this time, we will admit the patient for further treatment and evaluation of her pneumonia as well as acute respiratory failure. REVIEW OF SYSTEMS: A 12 point review of systems was conducted with the patient. All were negative except for pertinent positives mentioned in the above HPI. PAST MEDICAL HISTORY: 1. COPD. 2. Previous noncompliance with oxygen therapy. 3. Sleep apnea, previously noncompliant with CPAP. 4. Recent nicotine dependence, though at this time the patient reports that she has quit smoking. 5. Anxiety. 6. Depression. 7. Osteoporosis. 8. Chronic pain. 9. Gastroesophageal reflux disease. 10. Questionable congestive heart failure history, though her last echocardiogram in August of 2016 was normal with an EF of 53%. PAST SURGICAL HISTORY: 1. Hysterectomy. 2. Appendectomy. SOCIAL HISTORY: Patient is a former smoker, though has just recently quit smoking since her previous discharge. There is no known history of alcohol or illicit drug use. She was just recently discharged from [facility] but currently lives at home with her and daughter. ALLERGIES: Patient reports allergies to Zosyn. HOME MEDICATIONS: At this time, the patient's home medication list has not been updated and verified, though this list is the most recent list that was available in our system from her previous admission. 1. DuoNeb treatment q.4 hours. 2. Folic acid 1 mg p.o. daily. 3. Lyrica 75 mg p.o. at bedtime. 4. Actonel 150 mg p.o. every 30 days. 5. Doxepin 10 mg p.o. at bedtime. 6. Xanax 1.5 mg p.o. at bedtime. 7. Spiriva 1 puff inhaled daily. 8. Zoloft 100 mg p.o. daily. 9. Daliresp 500 mcg p.o. daily. 10. Nexium 40 mg p.o. daily. 11. Zanaflex 8 mg p.o. at bedtime. DIAGNOSTIC DATA/LABORATORY RESULTS: White blood cell count 4.81, hemoglobin 11.1, hematocrit 36.3, platelet count 200,000. PT 10.5, INR 1, PTT 27.1, D-dimer 1.46. Sodium 137, potassium 4.3, chloride 95, bicarb 29, BUN 7, creatinine 0.4, glucose 110, calcium 9.5, magnesium 1.7. Liver function tests were within normal limits. CK 20, troponin less than 0.01. ProBNP 199. Plasma lactate 1.7. Arterial blood gases were obtained on a BiPAP at 100%. PH was 7.37, pCO2 56, PO2 52, HCO3 was 29.3, with a base excess of 5.9, and oxyhemoglobin of 87.7, and an O2 saturation of 90.2. EKG showed normal sinus rhythm with a sinus arrhythmia at a rate of 85 with a QTc of 468. Chest x-ray showed right multilobular pneumonia, though we are awaiting official radiology over- read. Pending diagnostic studies at this time are blood cultures, sputum culture, urinalysis, and repeat arterial blood gases. PHYSICAL EXAMINATION: VITAL SIGNS: Temperature 98.5 degrees, heart rate 111, respirations 26, blood pressure 112/73, oxygen saturation is 94% on a BiPAP at 100%. GENERAL: Ms. Bermudez is a 71-year-old, elderly, female who is resting on the ER stretcher, though she is on BiPAP at this time. She is in no acute distress. She was awake, alert, and able to answer all questions appropriately, though the BiPAP did make this difficult at times. HEENT: Head is atraumatic, normocephalic. Pupils are equal, round, reactive to light, were 3 mm bilaterally and brisk. Subconjunctivae were slightly pale. Oral mucosa was dry. Oropharynx was clear. NECK: Supple. Trachea midline. No JVD noted. CARDIOVASCULAR: Patient has normal S1, S2. No murmurs, gallops, or rubs appreciated. Slightly tachycardic, rate is regular. PULMONARY: Patient has symmetrical chest expansion bilaterally. Lung sounds are diminished in the right lung warner, though were otherwise clear. ABDOMEN: Soft. Does not appear to be distended, though the patient does have a protuberant abdomen noted. She did report a little bit of tenderness in the right lower quadrant upon palpation. No rebound tenderness noted. The patient did report that she has not had a bowel movement in approximately 3 days. GENITOURINARY: Patient does have a Paez catheter in place at this time without light robert colored urine noted in the Paez drainage bag. EXTREMITIES: No cyanosis, clubbing, or edema noted. Pulse, motor, and sensory were intact in all extremities. Pedal pulses were 3+ bilaterally. Capillary refill is less than 3. NEUROLOGICAL: Patient is alert and oriented to person, place, and time. Cranial nerves 2-12 are grossly intact. The patient does have a slight tremor noted. This was also noted on her previous admission and she was placed on primidone for this. ASSESSMENT AND PLAN: 1. Right multilobular infiltrate. The patient has recently been admitted to the hospital as well as a alf care facility and was discharged with a methicillin-resistant Staphylococcus aureus pneumonia on her last admission, previously treated with vancomycin. For treatment of this, we will place her on Zyvox 600 mg intravenous every 12 hours as well as meropenem 1 g intravenous every 8 hours. Blood cultures have been obtained as well as sputum culture. We have placed a consult with Dr. Garcia with infectious disease. We will await his evaluation and further recommendations. 2. Acute respiratory failure. The patient was hypercapnic and hypoxic upon arrival. At this time, on BiPAP, the patient's oxygen saturations have improved. She is maintaining saturations in the mid to low 90s. Though, after a repeat arterial blood gas , the patient's pCO2 was still elevated at 56 with a pH is 7.34, PO2 of 52, and an HCO3 of 27.4. We have notified respiratory who he is going to adjust the patient's BiPAP settings and we will redraw an arterial blood gas later on this morning at approximately at 10 a.m. We have also placed a consult with Dr. Young with pulmonology. We will await his evaluation and further recommendations as well. 3. Chronic obstructive pulmonary disease. We will continue with the DuoNeb treatments every 4 hours as well as every 2 hours as needed. We will continue to follow. We will also do aggressive pulmonary toilet and incentive spirometry. 4. Deep venous thrombosis prophylaxis was provided with Lovenox 40 mg subcutaneously 24 hours. 5. Gastroesophageal reflux disease. For this, as well as gastrointestinal prophylaxis, we placed the patient on Protonix 40 mg intravenous every 24 hours. 6. The patient will be placed in the intensive care unit with telemetry. She will have vital signs per intensive care unit protocol. She will be on a heart healthy diet. We will do strict intake and output. We will also do every 4 hour neurological checks. She has been placed on isolation precautions given her previous positive methicillin- resistant Staphylococcus aureus sputum. We will also do aspiration precautions as. The patient did report some chest pain in the emergency room so we will trend her cardiac enzymes also. The patient did report that she has not had a bowel movement in 3 days and did have some abdominal tenderness upon palpation. We will obtain an abdominal x-ray but also place her on MiraLAX and a stool softener. Further orders and recommendations pending hospital course, diagnostic studies, and physician evaluation. Dictated by BENY Arciniega for Myah Young MD Seen and examined pt discussed case with STENCIL INSPECTOR. cc: Myah Young MD MTDD
[2017-03-03] MEDS: ZYVOX 600 MG/D5W 600 MG/300 ML IVPB IV SCH ×2 (09:50→20:40)
[2017-03-03] MEDS: LOVENOX SUBQ SCH (10:00)
[2017-03-03 10:13] LABS: ALLEN TEST YES; BE 6.2 mmoll (-3.0-3.0); BLOOD TYPE ARTERIAL; DRAW SITE L RADIAL; O2(CT) 14.2 mL/dL (15.0-23.0); PO2(98.6) 101 mmHg (60-100); SAMPLE BLOOD; SAO2 100.9 % (95.0-100.0); SRATE 24 BPM; THB 10.3 g/dL (11.5-17.4); pH(98.6) 7.38 (7.35-7.45)
[2017-03-03 10:15] LABS: PCO2(98.6) 55 mmHg (35-45)
[2017-03-03 10:16] LABS: MODALITY BI PAP
[2017-03-03] MEDS: MIRALAX PO SCH (10:36)
[2017-03-03] MEDS: TOPROL XL PO SCH (10:37)
[2017-03-03] MEDS: COLACE PO SCH (10:37)
[2017-03-03] MEDS ORDERED: ZOFRAN IV PRN (11:00)
[2017-03-03] MEDS: DUONEB (A & A) INH SCH ×4 (11:45→23:14)
[2017-03-03] MEDS: PROTONIX IV SCH (12:30)
[2017-03-03] MEDS: SODIUM CHLORIDE 0.9% INJ SCH (12:30)
[2017-03-03] MEDS: MERREM 1 GM in NS 50 ML IV SCH ×2 (12:31→20:35)
[2017-03-03 16:43] LABS: URINE CULTURE NEEDED? NO; URINE MICRO REVIEW NEEDED? NO; URINE SOURCE CATH
[2017-03-03 16:47] LABS: BILIRUBIN URINE NEGATIVE (NEGATIVE); BLOOD URINE NEGATIVE (NEGATIVE); COLOR YELLOW; GLUCOSE URINE NEGATIVE (NEGATIVE); LEUKOCYTES URINE NEGATIVE (NEGATIVE); NITRITE URINE NEGATIVE (NEGATIVE); PH URINE 6.5; PROTEIN URINE NEGATIVE (NEGATIVE); SP GRAVITY URINE 1.014; TURBIDITY URINE CLEAR (CLEAR); UROBILINOGEN URINE NORMAL (NORMAL)
[2017-03-03 16:48] LABS: UR EPITHELIAL CELLS <10 /HPF (<10); URINE BACTERIA NEGATIVE /HPF; URINE RBC <10 /HPF (<10); URINE WBC <10 /HPF (<10)
[2017-03-03] MEDS: TYLENOL PO PRN (21:29)
[2017-03-04] MEDS: DUONEB (A & A) INH SCH ×6 (03:08→22:49)
[2017-03-04] MEDS: MERREM 1 GM in NS 50 ML IV SCH ×3 (04:18→20:51)
[2017-03-04] MEDS: TYLENOL PO PRN (04:18)
[2017-03-04] MEDS: MORPHINE IV PRN ×3 (04:19→17:49)
[2017-03-04 04:29] LABS: ALLEN TEST YES; BE 7.8 mmoll (-3.0-3.0); BLOOD TYPE ARTERIAL; DRAW SITE R RADIAL; METHB 1.1 % (0.0-1.5); O2(CT) 13.5 mL/dL (15.0-23.0); PCO2(98.6) 50 mmHg (35-45); PO2(98.6) 132 mmHg (60-100); SAMPLE BLOOD; SAO2 99.1 % (95.0-100.0); THB 9.7 g/dL (11.5-17.4); pH(98.6) 7.43 (7.35-7.45)
[2017-03-04 04:30] LABS: MODALITY BI PAP
[2017-03-04 05:35] LABS: MANUAL DIFF NEEDED? NO
[2017-03-04 06:06] LABS: AGAP 10; ALBUMIN 2.9 g/dL (3.5-5.0); ALKALINE PHOSPHATASE 60 U/L (32-104); BUN 10 mg/dL (8-22); CALCIUM 8.6 mg/dL (8.8-10.2); CHLORIDE 99 mmol/L (98-107); COSMO 276; GOT 11 U/L (10-30); GPT 9 U/L (10-36); POTASSIUM 3.8 mmol/L (3.5-5.1); SODIUM 139 mmol/L (136-145); TCO2 30 mmol/L (25-35); TOTAL BILIRUBIN 0.53 mg/dL (0.20-1.00); TOTAL PROTEIN 5.4 g/dL (6.3-8.3)
--- NOTE | 2017-03-04 07:16 | Diag Imaging Result Doc PS360 ---
EXAM: CHEST-1 VIEW INDICATION: SOB TECHNIQUE: One view COMPARISON: 03/03/2017 FINDINGS: The patient is rotated significantly toward the right. Given the differences in positioning, the dense patchy infiltrate on the right is unchanged. Atelectasis on the left is grossly stable. No new consolidations are appreciated cardiac silhouette is stable. IMPRESSION: Essentially stable chest. Electronically signed by John Aponte 03/04/2017 7:14 AM
[2017-03-04] MEDS: PROTONIX IV SCH (07:39)
[2017-03-04] MEDS: SODIUM CHLORIDE 0.9% INJ SCH (07:39)
[2017-03-04] MEDS: ZYVOX 600 MG/D5W 600 MG/300 ML IVPB IV SCH (07:39)
[2017-03-04] MEDS: LOVENOX SUBQ SCH (07:39)
[2017-03-04 08:04] LABS: BASO% 0.2 % (0.0-0.8); EOS# 0.02 X1000 (0.0-0.7); EOS% 0.2 % (0.0-10.0); HEMATOCRIT 31.3 % (37.0-47.0); HEMOGLOBIN 9.5 g/dL (12.0-16.0); IMM GRAN# 0.03 X1000 (0.0-0.04); IMM GRAN% 0.3 % (0.0-0.5); LYMPH# 0.89 X1000 (1.2-3.4); LYMPH% 8.3 % (20.5-51.1); MCH 27.4 PG (27-31); MCHC 30.4 g/dL (33-37); MCV 90.2 FL (81-99); MONO# 0.71 X1000 (0.11-0.59); MONO% 6.6 % (1.7-9.3); MPV 11.2 FL (7.4-10.4); NEUT% 84.4 % (42.2-75.2); PLT 142 X1000 (130-400); RBC 3.47 XMIL (4.2-5.4)
[2017-03-04] MEDS: MIRALAX PO SCH (08:12)
[2017-03-04] MEDS: COLACE PO SCH (08:12)
[2017-03-04] MEDS: TOPROL XL PO SCH (08:13)
[2017-03-04] MEDS: HALDOL IV PRN ×2 (08:20→14:57)
[2017-03-04] MEDS ORDERED: D5 NS 1,000 ML IV SCH (08:33)
[2017-03-04] MEDS: D5 NS 1,000 ML IV SCH ×2 (08:41→17:50)
--- NOTE | 2017-03-04 09:06 | PROGRESS NOTE ---
DATE: 03/04/2017 SUBJECTIVE: This patient is still on the BiPAP machine. As per the patient, she feels better but she is still having shortness of breath. Yesterday we were titrating down the oxygen to 70 but they increased it again to 100 because the patient was desaturating. Today she looks better. I will restart her IV fluids. She will be on D5 NS at 100 mL/h. Infectious disease department and pulmonary department are following this patient. OBJECTIVE: Vital Signs: Temperature 97 degrees, pulse 80, respiratory rate 20, blood pressure 122/88, oxygen saturation 100% on BiPAP 100% oxygen flow. HEENT: Head normocephalic. No trauma. PERRLA. Neck: Supple. No JVD. No masses. Central trachea. Cardiovascular: RRR. No murmurs. Chest: Decreased breath sounds mostly at the level of the right lung field. Bilateral scattered rhonchi. Abdomen: Soft, nontender, nondistended. No hepatosplenomegaly. Protuberant. Extremities: No edema. No cyanosis. No clubbing. Neurological: The patient is alert and oriented x3. No focal neurological deficits. She moves all 4 extremities. LABORATORY: WBC 10.6, hemoglobin 9.5, hematocrit 31.3, platelets 142,000. Sodium 139, potassium 3.8, chloride 99, bicarbonate 30, BUN 10, creatinine 0.3, glucose 96, calcium 8.6, albumin 2.9. ASSESSMENT AND PLAN: 1. Right multilobular infiltrate. This patient has recently been discharged from this hospital secondary to MRSA pneumonia and she was treated with vancomycin. Now we switched the medication to Zyvox and meropenem. Infectious disease department has been consulted. For now, we will continue with the same management. 2. Acute hypercapnic and hypoxemic respiratory failure. At this moment this patient is using a BiPAP machine. The nurse tried to remove the BiPAP machine in the morning to try to give her some fluids per oral and the oxygen saturation dropped to the low 80s. Pulmonary department is following this patient as well. 3. Chronic obstructive pulmonary disease. Continue with DuoNeb every 4 hours and p.r.n. as well. Continue with aggressive pulmonary toilet. 4. Deep vein thrombosis prophylaxis. Continue with Lovenox. 5. Gastrointestinal prophylaxis. Continue with Protonix. 6. Overall this patient looks a little bit better compared with yesterday. She is still using the BiPAP machine. She is on isolation because recently she was discharged with MRSA pneumonia. Infectious disease department and pulmonary department are following this patient. CRITICAL CARE TIME: 40 minutes. cc: Sen Aiken MD
--- NOTE | 2017-03-04 19:39 | PROGRESS NOTE ---
DATE: 03/04/2017 PRESENT ILLNESS: The patient is readmitted to the hospital with pneumonia involving multiple lobes on the right side. MEDICATIONS: The patient is Zyvox and meropenem. PHYSICAL EXAMINATION: Vital Signs: Temperature is 97.8 degrees, pulse 99, respirations 30, blood pressure 118/71. General: This is an ill-appearing, elderly female. She is breathing hard but she states that she is feeling better and is less dyspneic. Lungs: Bilateral rhonchi. Cardiovascular: Heart rate is rapid and regular. Abdomen: Soft and nontender. Neurologic: The patient is arousable. She follows requests to move her extremities. She answers questions. LAB AND X-RAY: Blood cultures are pending. Sputum is growing a gram-negative bala. Liver function studies are normal. IgA is 225, which is normal. The IgG level is just minimally decreased to 673. Blood gases show a pH of 7.43, a PO2 of 132, a pCO2 of 50, creatinine 0.3. GFR is greater than 60. CBC shows a white count of 10,690, hemoglobin 9.5, and platelet count 142,000. ASSESSMENT AND PLAN: The patient has a gram-negative bala pneumonia. My plan is to continue meropenem but discontinue Zyvox. The patient's comorbidities include multiple myeloma, chronic obstructive pulmonary disease, cigarette smoking, sleep apnea, and gastroesophageal reflux disease. The IgG level is so minimally less than normal that I think it is of no clinical significance and I do not think the patient should get intravenous immunoglobulin because the level is so close to being normal. cc: John Garcia MD
[2017-03-04] MEDS ORDERED: ATIVAN IV ONE (21:11)
[2017-03-05] MEDS: MORPHINE IV PRN ×5 (01:01→21:33)
[2017-03-05] MEDS: DUONEB (A & A) INH SCH ×6 (03:12→22:53)
[2017-03-05] MEDS: MERREM 1 GM in NS 50 ML IV SCH ×3 (03:52→21:34)
[2017-03-05] MEDS: D5 NS 1,000 ML IV SCH (03:54)
[2017-03-05 04:02] LABS: ALLEN TEST YES; BE 5.8 mmoll (-3.0-3.0); BLOOD TYPE ARTERIAL; DRAW SITE R RADIAL; METHB 1.2 % (0.0-1.5); O2(CT) 18.4 mL/dL (15.0-23.0); PO2(98.6) 125 mmHg (60-100); SAMPLE BLOOD; SAO2 98.8 % (95.0-100.0); THB 13.5 g/dL (11.5-17.4); pH(98.6) 7.38 (7.35-7.45)
[2017-03-05 04:04] LABS: MODALITY BI PAP; PCO2(98.6) 55 mmHg (35-45)
[2017-03-05 06:35] LABS: MANUAL DIFF NEEDED? NO
[2017-03-05 06:47] LABS: BASO% 0.1 % (0.0-0.8); EOS# 0.05 X1000 (0.0-0.7); EOS% 0.6 % (0.0-10.0); HEMATOCRIT 27.8 % (37.0-47.0); HEMOGLOBIN 8.4 g/dL (12.0-16.0); LYMPH# 0.97 X1000 (1.2-3.4); LYMPH% 10.8 % (20.5-51.1); MCH 27.5 PG (27-31); MCHC 30.2 g/dL (33-37); MCV 90.8 FL (81-99); MONO# 0.55 X1000 (0.11-0.59); MONO% 6.1 % (1.7-9.3); MPV 10.7 FL (7.4-10.4); NEUT% 82.4 % (42.2-75.2); PLT 139 X1000 (130-400); RBC 3.06 XMIL (4.2-5.4)
--- NOTE | 2017-03-05 07:13 | Diag Imaging Result Doc PS360 ---
CHEST-1 VIEW - 03/05/2017 INDICATION: SOB TECHNIQUE: COMPARISON: 03/04/2017 FINDINGS: There is decrease in the significant atelectasis at the right lung base. There is still some infiltrate here. There is also improvement in the infiltrate at the left lung base. Stable cardiomegaly. IMPRESSION: Improvement in the significant atelectasis at the right lung base. Improvement in the infiltrate at the left lung base. Electronically signed by Howard Clancy 03/05/2017 7:10 AM
[2017-03-05 07:14] LABS: AGAP 10; BUN 10 mg/dL (8-22); CALCIUM 8.1 mg/dL (8.8-10.2); CHLORIDE 102 mmol/L (98-107); COSMO 278; POTASSIUM 3.6 mmol/L (3.5-5.1); SODIUM 140 mmol/L (136-145); TCO2 28 mmol/L (25-35)
[2017-03-05] MEDS: PROTONIX IV SCH (08:00)
[2017-03-05] MEDS ORDERED: SODIUM CHLORIDE 0.9% 10 ML ONE (08:35)
[2017-03-05] MEDS: SODIUM CHLORIDE 0.9% INJ SCH (08:47)
[2017-03-05] MEDS: LOVENOX SUBQ SCH (08:48)
[2017-03-05] MEDS: MIRALAX PO SCH (08:48)
[2017-03-05] MEDS: COLACE PO SCH (08:48)
[2017-03-05] MEDS: TOPROL XL PO SCH (08:48)
--- NOTE | 2017-03-05 10:40 | PROGRESS NOTE ---
DATE: 03/05/2017 SUBJECTIVE: Today, Ms. Bermudez refers to be doing a lot better. She is having a lot of cough with productive sputum. OBJECTIVE: Vital signs: Blood pressure is 169/97, pulse of 83, respirations 18 , temperature 97.6 degrees. General: Ms. Bermudez is a 71-year-old female. She is in bed , not seemingly distressed. HEENT: Mucosa is pink and moist. Anicteric. Acyanotic. Neck: Supple. Chest: Air entry is bilaterally reduced. There are diffuse bilateral coarse crepitations in both lung warner and expiratory wheezing as well. Cardiovascular: Regular rate and rhythm. Abdomen: Soft, nontender. Extremities: No pedal edema. AVIATION NEUROPSYCHOLOGIST: Patient is alert and oriented x4. There is no focal neurological deficit. MICROBIOLOGY DATA: The sputum culture has been positive for E coli which is pansensitive. DIAGNOSTIC DATA: A chest x-ray which was done on presentation showed new multifocal infiltrates on the right side concerning for pneumonia versus aspiration. A repeat x-ray this morning shows improvement in the significant atelectasis at the right lung base, improvement in the infiltrate in the right lung. LABORATORY DATA: WBC is 9.01, hemoglobin is 8.4, platelet count of 139,000. ABGs reviewed: PCO2 is 55, PaO2 is 125, pH of 7.38. This was on the BiPAP. Chemistries reviewed completely unremarkable. CURRENT MEDICATIONS: 1. Albuterol nebs. 2. Docusate. 3. Lovenox. 4. Meropenem 1 g IV q.8 hours. 5. Pantoprazole. ASSESSMENT: 1. Multifocal pneumonia. 2. Acute hypercarbic and hypoxemic respiratory failure secondary to #1. 3. History of chronic obstructive pulmonary disease. 4. Essential tremor. We will start the patient on primidone. 5. Recurrent pneumonias. There is concern for possible aspiration. We would do a formal swallow evaluation with barium to make sure that we have the right consistency of the food for this patient. Of note, Ms. Bermudez was admitted over here on 01/31/2017, discharged on 02/18/2017 to a rehab for a similar disease process (pneumonia). GENERAL PLAN: We will going to discontinue the Paez catheter. We will start the patient on primidone and her home medications. We will going to continue with the meropenem. We will discontinue the IV fluids. The patient is drinking. We would transfer her from the ICU to regular floor. Encourage her to sit up twice per day. Get physical therapy to work with her. Put her on incentive spirometer and do a swallow evaluation under fluoroscopy. cc: Kash Walter MD MTDD
[2017-03-05] MEDS: HALDOL IV PRN (11:12)
[2017-03-05] MEDS: DALIRESP PO SCH (11:16)
[2017-03-05] MEDS: FOLIC ACID PO SCH (11:17)
--- NOTE | 2017-03-05 12:25 | Diag Imaging Result Doc PS360 ---
EXAM: BA SWALLOW W/VIDEO SPEECH THER HISTORY: recurrent pneumonias. R/o Aspirations TECHNIQUE: Fluoroscopy time is 32 seconds. Total dose is 7 mm eight. COMPARISON: None. FINDINGS: Modified barium swallow with each pathologist. Thick and thin barium were swallowed without difficulty. Mild laryngeal penetration, but no aspiration. Normal primary secondary peristalsis. No other abnormality. IMPRESSION: Laryngeal penetration, but no faye aspiration. Electronically signed by Caleb Frias 03/05/2017 12:22 PM
[2017-03-05] MEDS: XANAX PO SCH (21:34)
[2017-03-05] MEDS: MYSOLINE PO SCH (21:34)
[2017-03-05] MEDS: LYRICA PO SCH (21:34)
[2017-03-05] MEDS: SINEQUAN PO SCH (21:40)
[2017-03-06] MEDS: DUONEB (A & A) INH SCH ×6 (03:45→23:03)
[2017-03-06] MEDS: MERREM 1 GM in NS 50 ML IV SCH ×2 (04:20→13:15)
--- NOTE | 2017-03-06 06:11 | Diag Imaging Result Doc PS360 ---
EXAM: CHEST-1 VIEW HISTORY: SOB TECHNIQUE: Portable AP COMPARISON: 03/05/2017 FINDINGS: The lungs are well expanded. Heart is not enlarged considering the portable AP technique. Mild increased interstitial markings in the mid right lung. These are similar to the prior exam. Likely atelectasis or fibrosis in the left base. No pleural effusions identified. IMPRESSION: Stable chest. Electronically signed by Caleb Frias 03/06/2017 6:08 AM
[2017-03-06 06:34] LABS: AGAP 12; BUN 7 mg/dL (8-22); CHLORIDE 103 mmol/L (98-107); COSMO 281; POTASSIUM 3.5 mmol/L (3.5-5.1); SODIUM 142 mmol/L (136-145); TCO2 27 mmol/L (25-35)
[2017-03-06] MEDS: FOLIC ACID PO SCH (09:20)
[2017-03-06] MEDS: TOPROL XL PO SCH (09:20)
[2017-03-06] MEDS: COLACE PO SCH (09:20)
[2017-03-06] MEDS: PRILOSEC PO SCH (09:21)
[2017-03-06] MEDS: DALIRESP PO SCH (09:21)
[2017-03-06] MEDS: MIRALAX PO SCH (09:21)
[2017-03-06] MEDS: LOVENOX SUBQ SCH (09:22)
[2017-03-06] MEDS: MORPHINE IV PRN ×3 (11:14→20:47)
--- NOTE | 2017-03-06 15:25 | PROGRESS NOTE ---
DATE: 03/06/2017 PRESENT ILLNESS: The patient has a pneumonia involving multiple lobes on the right side. MEDICATIONS: The patient is receiving meropenem as a single agent. PHYSICAL EXAMINATION: Vital Signs: Temperature is 98.7 degrees, pulse 89, respirations 18, blood pressure 129/68. General: This is an ill-appearing, elderly female who has constant tremor involving the mouth and also the arms. It is very difficult to understand her speech. Lungs: Clear to auscultation. Cardiovascular: Regular heart rate. Abdomen: Soft and nontender. Neurologic: Patient is awake. She tries to talk, but it was very hard for me to understand what she is saying. She is constantly having movement of her lips and she does have a tremor of her arms. LAB AND X-RAY: The sputum grew an E. coli that was susceptible to all the agents tested. Barium swallow showed no aspiration. Chest x-ray shows interstitial markings and fibrosis and atelectasis. Blood cultures are negative. Sputum grew Escherichia coli. CBC shows a white count of 9010, hemoglobin 8.4 and platelet count 139,000. The patient's blood gases show a pH of 7.38, a PO2 of 125 and a pCO2 of 55. The patient's creatinine is 0.3. GFR is greater than 60.. ASSESSMENT AND PLAN: The patient has resolving pneumonia. I have switched the patient from meropenem to Levaquin. COMORBIDITIES: Include multiple myeloma, chronic obstructive pulmonary disease, cigarette smoking, sleep apnea, and gastroesophageal reflux disease. The IgG level is only minimally depressed and I do not think it is of any clinical significance. Therefore I would recommend no gammaglobulin supplementation. cc: John Garcia MD
--- NOTE | 2017-03-06 15:38 | PROGRESS NOTE ---
DATE: 03/06/2017 SUBJECTIVE: Today Mrs. Bermudez states that she is doing better. She still continued to have cough with phlegm. She has generalized tremors. Her sister is at the bedside and she is helping me to understand what the patient says. It is really difficult to understand because of her tremor. OBJECTIVE: Temperature 97.8 degrees, pulse 89, respiratory rate 18, blood pressure 129/68, O2 saturation 92 on 6 L of nasal cannula.HEENT: Head normocephalic. No trauma. PERRLA. Neck: Supple. No JVD. No masses. Central trachea. Chest: Bilateral coarse breath sounds with scattered rhonchi bilaterally. End expiratory wheezing mostly at the level of the upper and middle lungs Cardiovascular: RRR. Abdomen: Soft, nontender, nondistended. No hepatosplenomegaly. Extremities: No edema. No clubbing. No cyanosis. Neurological: The patient is alert. She is oriented x4. She has generalized tremors. She moves all 4 extremities. MICROBIOLOGY: Blood culture has been negative so far. The sputum culture showed E. coli that is pansensitive. LABORATORY: Sodium 142, potassium 3.5, chloride 103, bicarbonate 27, BUN 7, creatinine 0.3, glucose 91, calcium 8. ASSESSMENT AND PLAN: 1. Multifocal pneumonia. Like I mentioned before, we have a positive sputum culture that showed E. coli pansensitive. We will continue for now with levofloxacin that was added today. Infectious Disease is following this patient. 2. Acute hypercapnic and hypoxemic respiratory failure secondary to #1, this is getting better. Continue to monitor. 3. History of COPD not in exacerbation at this moment but we will continue with the respiratory treatment, and oxygen. 4. Essential tremor. Continue with Primidone. 5. Deep vein thrombosis prophylaxis. Continue with Lovenox. 6. GI prophylaxis with Protonix. cc: Sen Aiken MD
[2017-03-06] MEDS ORDERED: CALMOSEPTINE OINTMENT TOP PRN (16:15)
[2017-03-06] MEDS: LEVAQUIN PO SCH ×2 (19:13→19:16)
[2017-03-06] MEDS: SINEQUAN PO SCH (20:48)
[2017-03-06] MEDS: MYSOLINE PO SCH (20:48)
[2017-03-06] MEDS: XANAX PO SCH (20:48)
[2017-03-06] MEDS: LYRICA PO SCH (20:48)
[2017-03-07] MEDS: DUONEB (A & A) INH SCH ×5 (04:18→20:04)
[2017-03-07 06:38] LABS: MANUAL DIFF NEEDED? NO
--- NOTE | 2017-03-07 06:58 | Diag Imaging Result Doc PS360 ---
EXAM: CHEST-1 VIEW HISTORY: SOB TECHNIQUE: Portable AP COMPARISON: 03/06/2017 FINDINGS: There are infiltrates and atelectasis in the upper and lower curve exam. Mild increased markings in the left base are unchanged. Heart remains mildly enlarged. Questionable tiny right pleural effusion. Central vascular prominence. IMPRESSION: Development of right sided infiltrates. Electronically signed by Caleb Frias 03/07/2017 6:56 AM
[2017-03-07 07:02] LABS: BASO% 0.4 % (0.0-0.8); EOS# 0.03 X1000 (0.0-0.7); EOS% 0.6 % (0.0-10.0); HEMATOCRIT 31.5 % (37.0-47.0); HEMOGLOBIN 9.7 g/dL (12.0-16.0); IMM GRAN# 0.03 X1000 (0.0-0.04); IMM GRAN% 0.6 % (0.0-0.5); LYMPH# 0.87 X1000 (1.2-3.4); MCH 27.1 PG (27-31); MCHC 30.8 g/dL (33-37); MONO# 0.59 X1000 (0.11-0.59); MONO% 12.2 % (1.7-9.3); MPV 10.4 FL (7.4-10.4); NEUT% 68.2 % (42.2-75.2); PLT 190 X1000 (130-400); RBC 3.58 XMIL (4.2-5.4)
[2017-03-07 07:06] LABS: AGAP 11; BUN 3 mg/dL (8-22); CALCIUM 8.1 mg/dL (8.8-10.2); CHLORIDE 102 mmol/L (98-107); COSMO 279; POTASSIUM 3.1 mmol/L (3.5-5.1); SODIUM 141 mmol/L (136-145); TCO2 28 mmol/L (25-35)
[2017-03-07] MEDS: LOVENOX SUBQ SCH (08:56)
[2017-03-07] MEDS: LEVAQUIN PO SCH (08:56)
[2017-03-07] MEDS: PRILOSEC PO SCH (08:56)
[2017-03-07] MEDS: TOPROL XL PO SCH (08:57)
[2017-03-07] MEDS: DALIRESP PO SCH (08:57)
[2017-03-07] MEDS: COLACE PO SCH (08:57)
[2017-03-07] MEDS: FOLIC ACID PO SCH (08:57)
[2017-03-07] MEDS: MIRALAX PO SCH (08:57)
[2017-03-07] MEDS: MORPHINE IV PRN ×4 (09:22→22:07)
[2017-03-07] MEDS ORDERED: KLOR-CON PO ONE (11:15)
--- NOTE | 2017-03-07 16:22 | PROGRESS NOTE ---
DATE: 03/07/2017 SUBJECTIVE: This patient states that she is breathing better. She is still complaining of shakiness and mild shortness of breath. Family members at the bedside. OBJECTIVE: Vital signs: Temperature 98.6 degrees, pulse 88, respiratory rate 18, blood pressure 164/85, oxygen saturation 92 on 6 L of nasal cannula. HEENT: Head normocephalic. No trauma. PERRLA. Neck: Supple. No JVD. No masses. Central trachea. Chest: Bilateral coarse breath sounds with scattered rhonchi bilaterally and expiatory wheezing mostly at the level of the upper and middle lung. Cardiovascular: RRR. Abdomen: Soft, nontender, nondistended. No hepatosplenomegaly. Extremities: No edema. No clubbing. No cyanosis. Neurological: The patient is alert and oriented x3. She has generalized tremors. She moves all 4 extremities. LABORATORY: WBC 4.8, hemoglobin 9.7, hematocrit 31.5, platelets 190,000. Sodium 141, potassium 3.1, chloride 102, bicarbonate 28, BUN 3, creatinine 0.3, glucose 115, calcium 8.1. ASSESSMENT AND PLAN: 1. Multifocal pneumonia. This patient has a positive sputum culture that showed Escherichia coli that basically is pansensitive, Infectious Disease department has ordered quinolones to treat this patient. I do believe that this patient can be discharged tomorrow but 1st we need to talk to the transition social worker and arrange home health with physical therapy, also this patient will need a front wheel walker. 2. Acute hypercapnic and hypoxemic respiratory failure secondary to #1. This is getting better. Continue to monitor. 3. History of chronic obstructive pulmonary disease not in exacerbation at this moment but will continue with respiratory treatment and oxygen, this patient is on oxygen at home around 3-4 L. 4. Essential tremors. Continue with primidone. As per the patient, she has also been using another treatment, we will ask the family members to add it to her medications. 5. Deep vein thrombosis prophylaxis. Continue with Lovenox. 6. Gastrointestinal prophylaxis with Protonix. Overall, this patient is doing much better. I do believe that this patient can be discharged tomorrow but we need to talk to the transition social worker and to arrange home health and physical therapy, also she is using oxygen at home. This patient is asking also for stability a front wheeled walker. cc: Sen Aiken MD
[2017-03-07] MEDS: SINEQUAN PO SCH (20:32)
[2017-03-07] MEDS: XANAX PO SCH (20:32)
[2017-03-07] MEDS: LYRICA PO SCH (20:33)
[2017-03-07] MEDS: MYSOLINE PO SCH (20:33)
[2017-03-07] MEDS: NICODERM PATCH TD SCH (22:06)
[2017-03-07] MEDS: ULTRAM PO PRN (22:07)
[2017-03-08] MEDS: MORPHINE IV PRN ×6 (00:29→21:09)
[2017-03-08] MEDS ORDERED: VALIUM PO PRN (02:00)
[2017-03-08] MEDS: DUONEB (A & A) INH SCH ×7 (02:16→22:58)
[2017-03-08 06:04] LABS: BASO% 0.8 % (0.0-0.8); EOS# 0.12 X1000 (0.0-0.7); HEMATOCRIT 35.9 % (37.0-47.0); HEMOGLOBIN 11.1 g/dL (12.0-16.0); IMM GRAN# 0.15 X1000 (0.0-0.04); IMM GRAN% 2.5 % (0.0-0.5); LYMPH# 1.35 X1000 (1.2-3.4); LYMPH% 22.2 % (20.5-51.1); MANUAL DIFF NEEDED? NO; MCH 27.1 PG (27-31); MCHC 30.9 g/dL (33-37); MCV 87.8 FL (81-99); MONO# 0.94 X1000 (0.11-0.59); MONO% 15.4 % (1.7-9.3); MPV 10.3 FL (7.4-10.4); NEUT% 57.1 % (42.2-75.2); PLT 215 X1000 (130-400); RBC 4.09 XMIL (4.2-5.4)
[2017-03-08 06:22] LABS: AGAP 11; ALBUMIN 3.4 g/dL (3.5-5.0); ALKALINE PHOSPHATASE 62 U/L (32-104); BUN 5 mg/dL (8-22); CALCIUM 8.5 mg/dL (8.8-10.2); CHLORIDE 102 mmol/L (98-107); COSMO 279; GOT 9 U/L (10-30); GPT 6 U/L (10-36); POTASSIUM 3.6 mmol/L (3.5-5.1); SODIUM 141 mmol/L (136-145); TCO2 28 mmol/L (25-35); TOTAL PROTEIN 6.3 g/dL (6.3-8.3)
--- NOTE | 2017-03-08 07:10 | Diag Imaging Result Doc PS360 ---
EXAM: CHEST-1 VIEW HISTORY: SOB TECHNIQUE: Erect AP portable at 0545 COMMENT: there is slight worsening of atelectasis over the left base compared to 03/07/2017. Otherwise has been no significant change. IMPRESSION: Slightly worsened left lower lobe atelectasis. Electronically signed by Madhav Salcido 03/08/2017 7:07 AM
[2017-03-08] MEDS: XANAX PO SCH ×2 (10:00→20:20)
[2017-03-08] MEDS: PRILOSEC PO SCH (10:00)
[2017-03-08] MEDS: TOPROL XL PO SCH (10:00)
[2017-03-08] MEDS: NICODERM PATCH TD SCH (10:00)
[2017-03-08] MEDS: FOLIC ACID PO SCH (10:00)
[2017-03-08] MEDS: DALIRESP PO SCH (10:01)
[2017-03-08] MEDS: LEVAQUIN PO SCH (10:01)
[2017-03-08] MEDS: LOVENOX SUBQ SCH (10:01)
[2017-03-08] MEDS: MIRALAX PO SCH (10:02)
[2017-03-08] MEDS: COLACE PO SCH (10:03)
[2017-03-08] MEDS: ULTRAM PO PRN (13:49)
--- NOTE | 2017-03-08 14:38 | Diag Imaging Result Doc PS360 ---
EXAM: CT THORAX W/O CONTRAST INDICATION: pneumonia COMPARISON: 02/08/2017 FINDINGS: There is moderate to advanced pulmonary emphysema with apical predominance. There has been interval extubation. The bilateral consolidation seen previously have improved during the interval. However, there is residual patchy consolidation consolidation at both lung bases, worse on the left, as well as the inferior aspect of the right upper lobe. There is also probably a component of atelectasis in these regions as well. There is no pleural fluid collection and there is no pneumothorax. There is a moderate-sized hiatal hernia. There is stable cardiomegaly. The mediastinum is unchanged, otherwise. IMPRESSION: 1.COPD changes and interval improvement of consolidations bilaterally as compared to the previous study. However, there is still significant residual consolidation at both lung bases and the inferior aspect of the right upper lobe. 2.Other incidental/nonacute findings detailed above. Electronically signed by John Aponte 03/08/2017 2:36 PM
--- NOTE | 2017-03-08 15:01 | CONSULTATION ---
DATE OF CONSULTATION: 03/08/2017 Ms. Bermudez is 71 years old and she has longstanding tremor. I have been asked to see her for that problem. She reports tremor for more than 10 years, possibly 20 years. Tremor was initially present only in the hands. Now, she reports tremor seems to involve her entire body and is particularly prominent in her speech reaching the point she could hardly make herself understood. There is family history of tremor in a sister. She does not know of any other family history of tremor including her parents and her children. She has recently been seeing Dr. Aguilar in [place] for management of tremor. She has been taking medicine to help with tremor but she cannot name that. I believe there is report in the chart that family checked and she has been taking tetrabenazine. I am not sure about the duration of that management. She was started on primidone 50 mg at bedtime a few nights ago here in the hospital. Her home medicine list includes alprazolam 1.5 mg at bedtime. She has that dose ordered here with additional 1 mg p.r.n. alprazolam dose as needed. The 1.5 mg alprazolam was resumed a few days ago after her admission 5 days ago. She was admitted with shortness of breath, evidence of pneumonia and reported transient altered mental state. Her mentation apparently recovered quickly. Initial heart rate was 80s, recently 100s. Initial systolic blood pressure was 100s to 110s, recently 140s to 160s. We do not have brain imaging report this admission. PHYSICAL EXAMINATION: On exam now, Ms. Bermudez is awake, alert, attentive, appropriate, oriented. She has very prominent action tremor in her voice to the point she could hardly make herself understood. She had no trouble understanding what I said. She has a little bit of head tremor, prominent chin tremor, prominent action tremor in the arms, a little bit more on the right than the left and also some tremor in the right leg. There is no cogwheeling or rigidity. She has significant intention tremor component interfering with [id number] testing. Gait is not impaired. Tone is equal in the limbs. She has good power in the limbs. Sensation is intact on gross testing. Visual warner are full. IMPRESSION: Prominent action tremor with some intention tremor component. I do not see definite resting tremor or extrapyramidal syndrome. I am not sure about her previous medication history. She is not able to provide details herself. Primidone was added on hospitalization last month and she came back to the hospital this admission not taking primidone, primidone added again a few days ago this admission. She has been taking alprazolam chronically and reports tremor is often worse if she misses that. She missed a few days with alprazolam during the acute management of her respiratory difficulty this admission but alprazolam was resumed a few days ago. I do not know if she has tried topiramate. Family report is that she has tetrabenazine at home. I do not think tremor requires urgent management. I would continue to focus on her respiratory problems. When she is stable medically, she may be discharged and keep followup with Dr. Aguilar in [place]. If she can tolerate primidone, I would continue that and consider increasing the dose. I would continue her chronic benzodiazepine dose. Thanks for asking me to see Ms. Bermudez. cc: MD JENIFER Granda III
--- NOTE | 2017-03-08 15:30 | PROGRESS NOTE ---
DATE: 03/08/2017 PRESENT ILLNESS: Patient has bilateral pneumonia as evidenced by the patient's most recent CAT scan. MEDICATIONS: This is day 2 of treatment with Levaquin for an E. coli pneumonia. PHYSICAL EXAMINATION: Vital Signs: Temperature is 99.9 degrees, pulse 95, respirations 18, blood pressure 146/97. General: This is an ill-appearing, elderly female. Neurologic: The patient has tremors of her mouth and appears to be very upset now about not being able to go home today. Lungs: Clear to auscultation. Cardiovascular: Regular heart rate. Abdomen: Soft and nontender. LAB AND X-RAY: CT scan shows improvement in the bilateral lung consolidations. Creatinine is 0.3 GFR is greater than 60. Liver function studies are normal. CBC shows a white count of 6,090, hemoglobin 11.1, and platelet count 215,000. Sputum grew E. coli. The blood cultures are negative. ASSESSMENT AND PLAN: Patient Escherichia coli pneumonia. My plan is to continue Levaquin therapy orally. The patient's comorbidities include multiple myeloma, COPD, cigarette smoking, sleep apnea, and gastroesophageal reflux disease. The depression in patient's IgG level is not significant and does not merit gammaglobulin replacement therapy. cc: John Garcia MD
--- NOTE | 2017-03-08 17:26 | PROGRESS NOTE ---
DATE: 03/08/2017 SUBJECTIVE: The patient has had an increase in her tremor. She states that she wants to go home. However, the patient is on 6 L of oxygen via nasal cannula. She is normally on 3 L at home. OBJECTIVE: Vital Signs: Temperature 99 degrees, blood pressure 146/97, heart rate 95, respirations 18, O2 saturations 94% on 6 L nasal cannula. General: This is a morbidly obese, elderly female, sitting up at the edge of the bed, in no acute distress. Head: Normocephalic, atraumatic. Heart: S1, S2. Normal. Tachycardic. Lungs: Equal air entry bilaterally, no crackles, no rales. Abdomen: Positive bowel sounds. Soft, nontender, nondistended. Extremities: No edema. No cyanosis. No calf tenderness. Neurologic: The patient has a constant tremor that involves her extremities and her oral region. She is able to move all 4 extremities and ambulate. LABORATORY: White blood cell count 6, hemoglobin 11, hematocrit 35, platelets 215,000. Sodium 141, potassium 3.6, chloride 102, CO2 28, BUN 5, creatinine 0.3, glucose 112, AST 9, AST 6. ASSESSMENT AND PLAN: 1. Bilateral pneumonia secondary to Escherichia coli. Continue on Levaquin as directed by Dr. Garcia as well as bronchodilator therapy and supplemental oxygen. We will continue to try and wean the patient back down to 3 L nasal cannula on her supplemental oxygen. Pulmonary is following. 2. Tremor. We will restart the patient's Xanax and continue on primidone. Neurology is following. 3. Morbid obesity. Aware. 4. Hypertension. Controlled. 5. Tobacco dependence. Continue on the NicoDerm patch. 6. Situational depression. Continue on Zoloft. 7. Deep vein thrombosis prophylaxis. We will continue on Lovenox. 8. Continue with physical therapy. cc: Elizabeth Moss MD
[2017-03-08] MEDS: LYRICA PO SCH (20:18)
[2017-03-08] MEDS: SINEQUAN PO SCH (20:18)
[2017-03-08] MEDS: MYSOLINE PO SCH (20:18)
[2017-03-08] MEDS ORDERED: ZANAFLEX PO SCH (21:00)
[2017-03-09] MEDS: DUONEB (A & A) INH SCH ×3 (03:19→11:14)
[2017-03-09 03:52] LABS: BE 7.5 mmoll (-3.0-3.0); BLOOD TYPE ARTERIAL; METHB 0.9 % (0.0-1.5); O2(CT) 12.6 mL/dL (15.0-23.0); PCO2(98.6) 48 mmHg (35-45); PO2(98.6) 57 mmHg (60-100); SAMPLE BLOOD; SAO2 93.5 % (95.0-100.0); THB 9.8 g/dL (11.5-17.4); pH(98.6) 7.44 (7.35-7.45)
[2017-03-09 03:53] LABS: ALLEN TEST YES; DRAW SITE L RADIAL; MODALITY CANNULA
[2017-03-09 06:28] LABS: MANUAL DIFF NEEDED? NO
[2017-03-09] MEDS: LOVENOX SUBQ SCH (06:33)
[2017-03-09 06:43] LABS: BASO% 0.8 % (0.0-0.8); EOS# 0.17 X1000 (0.0-0.7); EOS% 2.8 % (0.0-10.0); HEMOGLOBIN 10.2 g/dL (12.0-16.0); IMM GRAN# 0.25 X1000 (0.0-0.04); IMM GRAN% 4.1 % (0.0-0.5); LYMPH# 1.22 X1000 (1.2-3.4); LYMPH% 19.8 % (20.5-51.1); MCH 27.2 PG (27-31); MCHC 30.9 g/dL (33-37); MONO# 0.75 X1000 (0.11-0.59); MONO% 12.2 % (1.7-9.3); MPV 10.5 FL (7.4-10.4); NEUT% 60.3 % (42.2-75.2); PLT 229 X1000 (130-400); RBC 3.75 XMIL (4.2-5.4)
[2017-03-09 06:55] LABS: AGAP 12; BUN 7 mg/dL (8-22); CALCIUM 8.5 mg/dL (8.8-10.2); CHLORIDE 100 mmol/L (98-107); COSMO 276; POTASSIUM 4.1 mmol/L (3.5-5.1); SODIUM 139 mmol/L (136-145); TCO2 27 mmol/L (25-35)
[2017-03-09] MEDS ORDERED: SPIRIVA INH SCH (07:30)
--- NOTE | 2017-03-09 08:09 | Diag Imaging Result Doc PS360 ---
EXAM: CHEST-1 VIEW INDICATION: SOB TECHNIQUE: One view COMPARISON: 03/08/2017 FINDINGS: Atelectasis and/or infiltrate at the left lung base is stable. Consolidation in the right upper lobe is grossly stable as well. Consolidation and/or atelectasis at the right lung base may have improved marginally. More than likely, this is due to slight differences in positioning and inspiration. No new consolidations are appreciated. The cardiac silhouette is stable. IMPRESSION: Possible marginal improvement of atelectasis and/or infiltrate at the right lung base. The other infiltrates and atelectasis are essentially stable. Electronically signed by John Aponte 03/09/2017 8:07 AM
--- NOTE | 2017-03-09 08:47 | PROGRESS NOTE ---
DATE: 03/09/2017 Her tremor resolves with sleep as expected. She continues alprazolam and primidone and appears to be tolerating that management. I do not have any new suggestion today from a neurologic standpoint. I would try to wait for discharge and get her to follow up with Dr. Aguilar in [place] before making any major changes to tremor management. Thanks for asking me to see Ms. Bermudez. cc: MD JENIFER Granda III
[2017-03-09] MEDS ORDERED: ZOLOFT PO SCH (09:00)
[2017-03-09 09:16] VITALS: BP 129/80
[2017-03-09] MEDS: PRILOSEC PO SCH (09:50)
[2017-03-09] MEDS: COLACE PO SCH (09:50)
[2017-03-09] MEDS: FOLIC ACID PO SCH (09:50)
[2017-03-09] MEDS: XANAX PO SCH (09:51)
[2017-03-09] MEDS: TOPROL XL PO SCH (09:51)
[2017-03-09] MEDS: LEVAQUIN PO SCH (09:51)
[2017-03-09] MEDS: NICODERM PATCH TD SCH (09:51)
[2017-03-09] MEDS: DALIRESP PO SCH (09:51)
[2017-03-09] MEDS: MIRALAX PO SCH (09:51)
[2017-03-09] MEDS: MORPHINE IV PRN ×2 (10:27→14:03)
--- NOTE | 2017-03-09 13:52 | PROGRESS NOTE ---
DATE: 03/09/2017 PRESENT ILLNESS: The patient has bilateral consolidations as seen on the latest chest x-ray. MEDICATIONS: The patient has been receiving Levaquin now for 3 days for her E. coli pneumonia. PHYSICAL EXAMINATION: Vital Signs: Temperature is 97.9 degrees, pulse 108, respirations 16, blood pressure 129/80. Generally: This is an ill-appearing, elderly female who continues to have a repetitive movement of her lips and difficulty speaking. Lungs: Clear to auscultation. Cardiovascular: Heart rate is regular. Abdomen: Soft and nontender. LAB AND X-RAY: Chest x-ray today shows stable bilateral consolidations. Creatinine is 0.3. The GFR is greater than 60. The patient's blood gases show a pH of 7.44, PO2 of 57 and a pCO2 of 48. The patient's CBC shows a white count of 6160, hemoglobin 10.2, and platelet count 229,000. ASSESSMENT AND PLAN: The patient has E. coli pneumonia. My plan is to continue treatment with Levaquin. The patient will be discharged today on Levaquin and I will see her in my office in 2 weeks. COMORBIDITIES: Include multiple myeloma, COPD, cigarette smoking, sleep apnea, and gastroesophageal reflux disease. Her immunoglobulin G level is only minimally depressed and does not merit gammaglobulin infusion therapy. cc: John Garcia MD MTDD
--- NOTE | 2017-03-09 14:10 | PROGRESS NOTE ---
DATE: 03/09/2017 ADDENDUM: The patient will be going home today on Levaquin 500 mg p.o. daily. I plan to see the patient back my office in 2 weeks. At that time I will examine her and also repeat her chest x- ray. cc: John Garcia MD
--- NOTE | 2017-03-09 16:15 | DISCHARGE SUMMARY ---
ADMISSION DATE: 03/03/2017 DISCHARGE DATE: 03/09/2017 CONSULTATIONS: 1. Dr. Young with Pulmonology. 2. Dr. Filomena Wilcox with Neurology. 3. Dr. John Garcia with Infectious Disease. PERTINENT PROCEDURES: 1. Abdominal x-ray showed no acute disease. 2. Chest x-ray showed new multilobar infiltrates on the right side concerning for pneumonia or aspiration. 3. Modified barium swallow showed pharyngeal penetration, but no faye aspiration. 4. Chest CT showed COPD changes and interval improvement of consolidations bilaterally as compared to previous study. However, there was still significant residual consolidation at both lung bases at the inferior aspect of the right upper lobe. DISCHARGE DIAGNOSES: 1. Bilateral pneumonia secondary to Escherichia coli. Continue with oral Levaquin followed by Dr. John Garcia with Infectious Disease, as well as her usual oxygen supplementation. 2. Tremor. The patient restarted on Xanax, as well as primidone followed by Neurology. The patient will follow up with Dr. Burris in [place] after discharge. 3. Morbid obesity. Aware. 4. Hypertension, controlled. 5. Tobacco dependence. It was discussed with the patient about smoking cessation, as well as the means to quit. She was provided with a NicoDerm patch. 6. Situational depression. Continue Zoloft. 7. Acute hypercapnic hypoxemic respiratory failure secondary to multifocal pneumonia, improved. 8. Chronic obstructive pulmonary disease without exacerbation. Patient uses home oxygen, as well as bronchodilators. HOSPITAL COURSE: Ms. Bermudez is a 71-year-old female, who carries a past medical history most notable for COPD on home O2 therapy, sleep apnea, previous nicotine dependence, anxiety, depression, and chronic pain recently admitted to the hospital on 01/31/2017 for pneumonia and acute respiratory failure. On initial admission, she was placed on a ventilator. During her admission, the patient was found to have MRSA pneumonia. She was discharged to rehab at [facility] on vancomycin IV, and was previously followed by Dr. Garcia. She was discharged on 02/18/2017, returned home from the senior living. Family stated she had been home approximately 2 days when she became confused. Per the family, she was talking out of her head and was not making any sense. They called EMS. The patient was found to be in extreme respiratory distress with O2 saturations in the 70s. She was also hypotensive prior to arrival. Initial blood pressures that were 80s systolically. The patient was placed on BiPAP in the ED. Chest x-ray showed multilobar infiltrates on the right concerning for pneumonia. The patient was admitted with pneumonia, as well as acute respiratory failure. She was placed on IV antibiotics and reconsulted Dr. Garcia. She was continued on BiPAP, moved to the ICU with a Pulmonary consult. She was placed on bronchodilators, aggressive pulmonary toilet. The patient did have an essential tremor. She was restarted on her primidone. They did a modified barium swallow in reference to concern for possible aspiration. It did show laryngeal penetration, but no faye aspiration. Her sputum culture grew out E coli that was pansensitive. She was continued on levofloxacin. Patient did have improvement in her respiratory status. She was able to move out of the ICU to a regular floor. Dr. Wilcox was consulted for her continued tremor. She was re- initiated back on her Xanax. Her tremor does resolve with sleep, and she will need to follow up with Dr. Burris in [place] prior to any major changes to any tremor management. Patient is being discharged on p.o. Levaquin by Dr. Garcia, and he will see the patient back in 2 weeks in his office where he will re-examine her and do a repeat chest x-ray. Slowly, the patient has clinically improved. She is appropriate for discharge home today. VITAL SIGNS: Temperature is 97.9 degrees, heart rate 108, respirations 16, blood pressure 129/80, O2 is 96% on 4 L nasal cannula. DISCHARGE DIET: Healthy heart. Ensure with all meals. DISCHARGE MEDICATIONS PER DR. ROBERTSON: 1. Tylenol 650 mg p.o. q. 6 hours p.r.n. 2. Albuterol nebulizer 2.5 mg inhaled q. 4 hours p.r.n. 3. Atenolol inhaler 4 puffs inhaled 4 times a day p.r.n. 4. DuoNebs 3 mL inhaled q. 2 hours p.r.n. 5. Xanax 1.5 mg p.o. at bedtime. 6. Xanax 1 mg p.o. q.a.m. 7. Colace 100 mg p.o. daily. 8. Sinequan 10 mg p.o. at bedtime. 9. Nexium 40 mg p.o. daily. 10. Folic acid 1 mg p.o. daily. 11. Levaquin 500 mg p.o. daily for 14 days. 12. Toprol-XL 25 mg p.o. daily. 13. MiraLAX 17 g p.o. daily. 14. Lyrica 75 mg p.o. at bedtime. 15. Primidone 50 mg p.o. at bedtime. 16. Risedronate sodium 150 mg p.o. q. 30 days. 17. Daliresp 500 mcg p.o. daily. 18. Zoloft 100 mg p.o. daily. 19. Spiriva 1 puff inhaled RT daily. 20. Tizanidine hydrogen chloride 80 mg p.o. at bedtime. FOLLOW UP: The patient is being discharged home with home health services with [facility]. She will follow up with Dr. John Garcia in 2 weeks where he will re-evaluate and do a repeat chest x-ray. He will also follow up with your neurologist, Dr. Burris, in 1-2 weeks as well as her primary care physician, Dr. Umberto Beckman, in 1 week. The patient is to take all her antibiotics, as well as bronchodilators as prescribed. The patient can return to the ED for any worsening of symptoms. DISCHARGE TIME: 30 minutes. Dictated by BENY Wing for Sen Aiken MD cc: MD Umberto Lombardi MD
== END 2017-03-09 16:01 | disposition home health service (06) ==
LOC: ED 02:06 → EDIPHOLD 07:11 → SUATTDRO 07:11 → ICU 10:40 → 3N 03-05 15:36
PROVIDERS: ATTEND Internal Medicine

== ENCOUNTER 2017-03-13 12:38 | Inpatient (IN) ==
[2017-03-13 13:19] LABS: MANUAL DIFF NEEDED? NO
[2017-03-13 13:26] LABS: BASO% 0.3 % (0.0-0.8); EOS# 0.14 X1000 (0.0-0.7); EOS% 0.9 % (0.0-10.0); HEMATOCRIT 33.8 % (37.0-47.0); HEMOGLOBIN 10.5 g/dL (12.0-16.0); IMM GRAN# 0.07 X1000 (0.0-0.04); IMM GRAN% 0.5 % (0.0-0.5); LYMPH# 1.76 X1000 (1.2-3.4); LYMPH% 11.5 % (20.5-51.1); MCH 27.1 PG (27-31); MCHC 31.1 g/dL (33-37); MCV 87.3 FL (81-99); MONO# 0.62 X1000 (0.11-0.59); MPV 10.2 FL (7.4-10.4); NEUT% 82.8 % (42.2-75.2); PLT 309 X1000 (130-400); RBC 3.87 XMIL (4.2-5.4)
[2017-03-13 13:42] LABS: ALLEN TEST YES; BE 8.1 mmoll (-3.0-3.0); BLOOD TYPE ARTERIAL; DRAW SITE R BRACHIAL; METHB 0.8 % (0.0-1.5); O2(CT) 12.6 mL/dL (15.0-23.0); PO2(98.6) 54 mmHg (60-100); SAMPLE BLOOD; SAO2 91.1 % (95.0-100.0); THB 10.1 g/dL (11.5-17.4); pH(98.6) 7.39 (7.35-7.45)
[2017-03-13 13:50] LABS: AGAP 11; ALBUMIN 3.4 g/dL (3.5-5.0); ALKALINE PHOSPHATASE 59 U/L (32-104); BUN 14 mg/dL (8-22); CALCIUM 8.7 mg/dL (8.8-10.2); CHLORIDE 93 mmol/L (98-107); CK PROFILE 29 U/L (24-173); COSMO 271; GOT 11 U/L (10-30); GPT 6 U/L (10-36); POTASSIUM 4.2 mmol/L (3.5-5.1); SODIUM 135 mmol/L (136-145); TCO2 31 mmol/L (25-35); TOTAL BILIRUBIN 0.37 mg/dL (0.20-1.00); TOTAL PROTEIN 6.4 g/dL (6.3-8.3)
[2017-03-13 13:50] LABS: PCO2(98.6) 57 mmHg (35-45)
[2017-03-13 13:51] LABS: MODALITY CANNULA
[2017-03-13 14:11] LABS: INR 1.05; PROTIME 11.1 Seconds (9.2-11.7)
[2017-03-13] MEDS ORDERED: PULMICORT INH ONE (14:20)
[2017-03-13] MEDS ORDERED: ALBUTEROL NEB INH ONE (14:20)
[2017-03-13] MEDS ORDERED: DUONEB (A & A) INH ONE (14:20)
[2017-03-13] MEDS ORDERED: DUONEB (A & A) ONE (14:21)
[2017-03-13] MEDS ORDERED: SOLU-MEDROL IV ONE (14:21)
--- NOTE | 2017-03-13 14:36 | Diag Imaging Result Doc PS360 ---
EXAM: CHEST-2 VIEWS INDICATION: sob TECHNIQUE: 2 views COMPARISON: 03/09/2017 FINDINGS: The vague opacity seen on the previous study in both lungs are completely stable. There are no new consolidations. Cardiac silhouette is stable. IMPRESSION: Stable chest. Electronically signed by John Aponte 03/13/2017 2:33 PM
--- NOTE | 2017-03-13 15:02 | PROVIDER DOCUMENTATION ---
This chart was entered by Luz Orlando Scribe, acting as scribe for Rubio Sweet MD. HPI-General Adult - General Chief Complaint: Weakness Stated Complaint: POSS PNEUMONIA Time Seen by Provider: 03/13/17 12:49 Source: patient Allergies/Adverse Reactions: Patient Allergies Allergy/AdvReac Type Severity Reaction Status Date / Time tazobactam sodium * Allergy Severe ABDOMINAL Verified 03/13/17 14:06 [From Zosyn] PAIN Home Medications: Home Medication List Medication Instructions Recorded Confirmed Last Taken Type Albuterol Sulfate [Ventolin Hfa] 4 puff IH 4XDAY PRN PRN 06/24/12 03/03/1703/13 History Folic Acid 1 mg PO DAILY 06/24/12 03/13/17 03/13/17 History Tiotropium [place] Inhaler 1 puff INH RTDAILY 06/24/12 03/13/17 03/13/17 History [Spiriva] Pregabalin [Lyrica] 75 mg PO QHS 09/15/16 03/13/17 03/12/17 History Esomeprazole [Nexium] 40 mg PO DAILY 01/31/17 03/13/17 03/13/17 History Risedronate Sodium 150 mg PO Q30D 01/31/17 03/13/17 Unknown History Roflumilast [Daliresp] 500 mcg PO DAILY 01/31/17 03/13/17 03/13/17 History Tizanidine HCl 8 mg PO QHS 01/31/17 03/13/17 03/12/17 History Alprazolam 1.5 mg PO QHS #30 tablet 03/09/17 03/13/17 03/12/17 Rx Alprazolam [Xanax] 1 mg PO QAM #30 tablet 03/09/17 03/13/17 03/13/17 Rx Doxepin [Sinequan] 10 mg PO HS #30 capsule 03/09/17 03/13/17 03/12/17 Rx Sertraline [Zoloft] 100 mg PO DAILY #30 tablet 03/09/17 03/13/17 03/13/17 Rx Naloxegol Oxalate [Movantik] 25 mg PO ONCE 03/13/17 03/13/17 03/13/17 History Tetrabenazine [Xenazine] 12.5 mg PO DAILY 03/13/17 03/13/17 03/13/17 History - History of Present Illness -Gen Adult Nature of Presenting Problems: Pt is a 71 year old female who came to the ED with a cc of low blood pressure and low oxygen. Pt reports she has been in and out of the hospital for two week for pneumonia and MERSA. Pt reports she woke up this morning and was weak and fatigued. Pt reports she started a new medications called xenazine for her tremors and thinks it is causing her body aches. Location of Pain/Injury: reports: generalized Quality of Pain: reports: aching Severity: reports: mild Onset/Duration: reports: just prior to arrival Timing: reports: still present Associated Symptoms: reports: cough, fatigue, weakness Similar Symptoms Previously?: Yes Recently seen or treated by another doctor?: Yes Review of Systems - Adult - REVIEW OF SYSTEMS - ADULT Constitutional: reports: fatique. denies: chills, fever Eyes: reports: no symptoms reported Ears, Nose, Mouth & Throat: reports: no symptoms reported Cardiovascular: reports: no symptoms reported Respiratory: reports: cough, shortness of breath. denies: chronic cough, dyspnea on exertion, pleurisy Gastrointestinal: denies: diarrhea, nausea, rectal bleeding Genitourinary: reports: no symptoms reported Musculoskeletal: reports: no symptoms reported Integumentary: reports: no symptoms reported Neurological: reports: tremors. denies: loss of balance, seizure Psychiatric: reports: no symptoms reported Endocrine: reports: no symptoms reported Hematologic/Lymphatic: reports: no symptoms reported Allergic/Immunologic: reports: no symptoms reported All Other Systems: Reviewed and Negative Past History - Adult - PAST MEDICAL HISTORY-ADULT Review of Records: reports: Nursing Assessment Review Major Childhood Illnesses: reports: denies history Cardiovascular: reports: CHF, HTN, hyperlipidemia Respiratory: reports: asthma, COPD, sleep apnea Gastrointestinal: reports: GERD Obstetrical/Gynecological: reports: denies history Genitourinary: reports: denies history Musculoskeletal: reports: denies history Neurological: reports: denies history Endocrine/Immune: reports: denies history Other Conditions: reports: denies history - PRIOR SURGERIES/PROCEDURES Surgical/Procedure History: reports: appendectomy, hysterectomy, tonsillectomy - IMMUNIZATION STATUS Childhood Immunizations: See Nurse Assessment Flu Vaccine: See Nurse Assessment - FAMILY HISTORY Family History: reviewed, not pertinent Physical Exam-General - PHYSICAL EXAM-ADULT Initial Vital Signs Reviewed: Yes - CONSTITUTIONAL General Appearance: alert, no apparent distress - EYES Eyes: PERRL/EOMI, pink conjunctivae - HEAD, EARS, NOSE, MOUTH & THROAT HENMT: normocephalic/atraumatic, moist mucous membranes - NECK Neck: non-tender, full range of motion - RESPIRATORY Respiratory: chest non-tender, lungs clear - CARDIOVASCULAR Cardiovascular: normal peripheral pulses, regular rate, rhythm - GASTROINTESTINAL (ABDOMEN) Abdominal Exam: normal bowel sounds, non tender, soft - MUSCULOSKELETAL Back Exam: normal inspection, no CVA tenderness Extremity: normal range of motion - SKIN Integumentary: normal color, normal turgor - NEUROLOGIC Neurologic: grossly normal, other (tremor) - PSYCHIATRIC Psych/Mental Status: normal mood/affect, normal thought content, normal thought process, oriented x 3 Progress - PLAN OF CARE/RESULTS Progress/Plan/Lab Results: Vital Signs - 8 hr 03/13/17 12:40 Temperature 98.6 F Pulse Rate 95 H Respiratory Rate 24 Blood Pressure 131/100 O2 Sat by Pulse Oximetry 94 L Orders Category Date Time Status Cardiac Monitoring DIRECTED Care 03/13/17 12:45 Active IV Insertion ORDERED Care 03/13/17 12:45 Active Notify MD of + Sepsis Screen NOW Care 03/13/17 12:45 Active CHEST-2 VIEWS [RAD] Stat Exams 03/13/17 12:45 Ordered BLOOD CULTURE [BLDCUL] Stat Lab 03/13/17 13:08 Ordered CBC WITH DIFF [HEME] Stat Lab 03/13/17 13:07 Ordered CK PROFILE [SP CHEM] Stat Lab 03/13/17 13:07 Ordered COMPREHENSIVE METABOLIC PANEL [CHEM] Stat Lab 03/13/17 13:07 Ordered LACTATE, PLASMA [CHEM] Stat Lab 03/13/17 13:07 Ordered PROTIME WITH INR [COAG] Stat Lab 03/13/17 13:07 Ordered PTT [COAG] Stat Lab 03/13/17 13:07 Ordered TROPONIN T Stat Lab 03/13/17 13:07 Ordered Oxygen Device Stat Oth 03/13/17 12:45 Active EKG [EKG] Stat Ther 03/13/17 12:46 Ordered Result Diagrams: 03/13/17 13:05 03/13/17 13:05 - EKG 1 Time of EKG reading by physician:: 13:01 EKG Read and Signed by:: Justin Savage EKG Interpretation (*Must complete 3 of following elements*): Abnormal Rate: 94 (septal infarct, age undetermined ) Rhythm: sinus rhythm w/ frequent premature ventricular complexes - XRAY 1 XRAY Study: Chest (cardiomegly and COPD) - CONSULTS/PCP/HOSPITALIST Notification #1 *Consult/PCP/Hospitalist*: Ron Time Discussed: 15:00 Consult Disposition: Will see in ED, Admit Departure - Departure Date of Disposition Decision: 03/13/17 Time of Disposition Decision: 15:00 DIAGNOSIS: Decompensated COPD with exacerbation (chronic obstructive pulmonary disease) Disposition: HOME 01 Certified Medical Emergency: Emergent Condition: Fair Referrals and Follow-Ups: Umberto Beckman [Primary Care Provider] - - Critical Care Note This patient required my direct & personal management of CC.: No This chart was documented by the indicated scribe, (Luz Orlando Scribe) and accurately reflects the services I performed and decisions made by me, Rubio Sweet MD, as attested by the provider's signature.
[2017-03-13] MEDS ORDERED: VANCOMYCIN IV PER PHARMACY MISC SCH (15:15)
[2017-03-13] MEDS: MERREM 1 GM in NS 50 ML IV SCH ×2 (15:15→23:45)
[2017-03-13] MEDS ORDERED: NS 1,000 ML IV ONE (15:41)
[2017-03-13] MEDS ORDERED: NS 1,000 ML ONE (15:43)
[2017-03-13] MEDS ORDERED: DUONEB (A & A) INH PRN (16:06)
[2017-03-13] MEDS ORDERED: NS 1,000 ML IV SCH (16:11)
[2017-03-13 16:25] LABS: URINE CULTURE NEEDED? NO; URINE MICRO REVIEW NEEDED? NO; URINE SOURCE CATH
[2017-03-13] MEDS: LEVAQUIN 750 MG/D5W 750 MG/150 ML IVPB IV SCH (16:25)
[2017-03-13] MEDS: NS 1,000 ML IV SCH (16:25)
[2017-03-13 16:30] LABS: BILIRUBIN URINE NEGATIVE (NEGATIVE); BLOOD URINE NEGATIVE (NEGATIVE); COLOR YELLOW; GLUCOSE URINE NEGATIVE (NEGATIVE); LEUKOCYTES URINE NEGATIVE (NEGATIVE); NITRITE URINE NEGATIVE (NEGATIVE); PROTEIN URINE NEGATIVE (NEGATIVE); SP GRAVITY URINE 1.013; TURBIDITY URINE CLEAR (CLEAR); UROBILINOGEN URINE NORMAL (NORMAL)
[2017-03-13 16:31] LABS: UR EPITHELIAL CELLS <10 /HPF (<10); URINE BACTERIA NEGATIVE /HPF; URINE RBC <10 /HPF (<10); URINE WBC <10 /HPF (<10)
--- NOTE | 2017-03-13 17:16 | HISTORY AND PHYSICAL ---
PRIMARY CARE PROVIDER: Dr. Umberto Beckman. CHIEF COMPLAINT: Altered mental status. HISTORY OF PRESENT ILLNESS: Ms. Bermudez is a 71-year-old female well known to our service, recently discharged 5 days ago for recurrent respiratory failure and pneumonia. At that time, she was discharged home. She comes back this afternoon after she had a difficult time waking up this morning. Apparently, she was quite somnolent this morning and this concerned her family, and 911 was called. She had O2 saturations in the high 70s in the ambulance and was placed on BiPAP on arrival to the ER. Laboratory data reveals elevated white count, hypoxia, and hypercapnia. Chest x-ray shows vague opacity in both lungs that are essentially stable since last admission. Her blood pressure has been marginally low, in the low 90s to upper 80s. Given her constellation of symptoms, we are going to admit her for sepsis and healthcare- associated pneumonia. PAST MEDICAL HISTORY: 1. Recurrent admissions for pneumonia. 2. Chronic respiratory failure. 3. History of MRSA sputum. 4. COPD. 5. Obstructive sleep apnea. Noncompliance with medical therapy. 6. Anxiety. 7. Depression. 8. Osteoporosis. 9. Chronic pain. 10. Chronic narcotic therapy. 11. GERD. PAST SURGICAL HISTORY: She has had a hysterectomy and appendectomy. SOCIAL HISTORY: Patient has a long history of nicotine dependence, but recently quit smoking. She denies alcohol or drug use. She lives at home with her and daughter. REVIEW OF SYSTEMS: Fourteen-point review of systems obtained and found to be negative with the exception of the HPI. FAMILY HISTORY: Noncontributory. ALLERGIES: Zosyn. HOME MEDICATIONS: Alprazolam 1.5 mg at night and 1 mg in the morning. Doxepin 10 mg p.o. at bedtime. Nexium 40 mg daily. Folic acid 1 mg daily. Movantik 25 mg as directed. Lyrica 75 mg at bedtime. Risedronate 150 mg p.o. monthly. Daliresp 500 mcg daily. Zoloft 100 mg daily. Xenazine 12.5 mg daily. Spiriva 1 puff as directed. Tizanidine 8 mg p.o. at bedtime. PHYSICAL EXAMINATION: VITAL SIGNS: Blood pressure is 83/53, heart rate 79, respiratory rate 17, O2 saturation 93% on BiPAP therapy, and temperature is 98.6 degrees. GENERAL: Chronically ill and disheveled-appearing 71-year-old female , lying in hospital bed in mild respiratory distress. NEUROLOGIC: The patient is awake and alert. She is oriented and follows commands without focal deficits. HEENT: Head is atraumatic and normocephalic. Her pupils are equal, round, and reactive to light. Oral mucosa is dry. Trachea is midline. NECK: No JVD. CHEST: Diminished at the bases, with rhonchi over the right mid lung zone. CARDIOVASCULAR: Regular rate and rhythm. S1 and S2 noted. GASTROINTESTINAL: Soft, nondistended, nontender. Bowel sounds are positive. EXTREMITIES: Trace edema. Diminished pulses palpable bilaterally. DIAGNOSTIC DATA: Chest x-ray shows bilateral vague opacities, essentially stable since last examination 5 days ago. WBC 15.32, hemoglobin 10.5, hematocrit 33.8, platelet count 309,000. INR 1.05. ABG on 5L: pH 7.39, CO2 of 57, PO2 of 54, bicarbonate 31, oxyhemoglobin 88.4. Sodium 135, potassium 4.2, chloride 93, CO2 of 31, anion gap 11, BUN 14, creatinine 0.6, glucose 110, calcium 8.7, bilirubin 0.37, AST 11, ALT 6, alkaline phosphatase 59. Troponin negative. Albumin 3.4. Lactate 1.1. ASSESSMENT AND PLAN: 1. Acute on chronic hypercapnic and hypoxic respiratory failure: Multifactorial in nature secondary to chronic obstructive pulmonary disease exacerbation, healthcare- associated pneumonia, and medical noncompliance with sleep apnea. She will be admitted to the ICU with BiPAP. We are going to consult Pulmonary Critical Care. Continue antibiotics, breathing treatments, and aggressive pulmonary toilet. Pt has multiple admissions for recurrent PNA, she has had swallow eval which did not show overt aspiration, but given her high doses of sedating medications, silent aspiration should be evaluated as a potential etiology for recurrence. 2. Healthcare-associated pneumonia: As above. We will make sure and cover for Methicillin- resistant Staphylococcus aureus and double coverage for Pseudomonas. Continue breathing treatments and aggressive pulmonary toilet. We will check a chest x-ray in the morning. Blood cultures have been obtained. 3. Sepsis: Patient meets criteria with leukocytosis, tachypnea, hypotension, and source of pneumonia. We will give her a liter of normal saline, put her in the ICU. Pancultures have been obtained and broad-spectrum antibiotics have been started. 4. Chronic obstructive pulmonary disease exacerbation: As above. 5. Obstructive sleep apnea. Will continue her BiPAP at night. 6. Deep vein thrombosis prophylaxis will be provided with Lovenox. Further recommendations to follow. Dictated by BENY Nicole for Rudolph Velasquez MD cc: BENY Nicole MD Addendum: I personally evaluated and examined the patient in conjunction to the [facility]OWER OBSERVER and agreed with his assessments and dispositions. JENIFER
[2017-03-13] MEDS ORDERED: VANCOMYCIN 1,500 MG in NS 250 ML IV ONE (18:00)
[2017-03-13] MEDS: MORPHINE IV PRN (18:07)
[2017-03-13] MEDS: DUONEB (A & A) INH SCH ×2 (20:00→23:36)
[2017-03-14] MEDS: DUONEB (A & A) INH SCH ×5 (03:34→23:31)
[2017-03-14] MEDS: MORPHINE IV PRN ×6 (03:50→22:28)
[2017-03-14] MEDS: NS 1,000 ML IV SCH ×3 (03:51→19:44)
[2017-03-14 05:02] LABS: ALLEN TEST YES; BE 3.8 mmoll (-3.0-3.0); BLOOD TYPE ARTERIAL; DRAW SITE R RADIAL; METHB 1.1 % (0.0-1.5); O2(CT) 11.5 mL/dL (15.0-23.0); PO2(98.6) 74 mmHg (60-100); SAMPLE BLOOD; SAO2 97.2 % (95.0-100.0); THB 8.6 g/dL (11.5-17.4); pH(98.6) 7.36 (7.35-7.45)
[2017-03-14 05:03] LABS: MODALITY BI PAP; PCO2(98.6) 53 mmHg (35-45)
[2017-03-14] MEDS: MERREM 1 GM in NS 50 ML IV SCH ×3 (06:42→23:45)
--- NOTE | 2017-03-14 07:59 | Diag Imaging Result Doc PS360 ---
EXAM: CHEST-PORTABLE INDICATION: hypoxia TECHNIQUE: One view COMPARISON: 03/13/2017 FINDINGS: Bilateral vague opacities are proximally stable. There does appear to be slight increase in atelectasis at the lung bases. No definite new consolidation is identified, otherwise. Cardiac silhouette is stable. IMPRESSION: Slight increase in mild bibasilar atelectasis. Otherwise, stable. Electronically signed by John Aponte 03/14/2017 7:56 AM
--- NOTE | 2017-03-14 08:22 | PROGRESS NOTE ---
DATE: 03/14/2017 SUBJECTIVE: The patient stated that she is feeling better. The nursing staff reported she had significant perigenital yeast. No fever. No chills. No nausea, vomiting, or diarrhea. Still on the BiPAP overnight, with significant tremor. PHYSICAL EXAMINATION: Vital Signs: Blood pressure 123/75, pulse of 86, respirations 23, temperature of 98 degrees, saturation of 94% on BiPAP, 60% of FiO2. General Appearance: Thin, cachectic, white female in moderate distress. HEENT: Anicteric sclerae. Clear conjunctivae. Neck: Supple. No JVD. No bruit. Cardiovascular: S1, S2. Normal rate and rhythm. No murmur, rubs, or gallops. Pulmonary: Clear to auscultation bilaterally. GI: Soft, nontender, nondistended. Normoactive bowel sounds. Musculoskeletal: No clubbing, cyanosis, or edema. LABORATORY: Today is not yet available. ABG noted. CO2 improved. ASSESSMENT AND PLAN: A 71-year-old, white female admitted to the hospital for acute respiratory failure. 1. Acute respiratory failure due to hypercapnia and hypoxia, longstanding history of chronic obstructive pulmonary disease, very minimal air movement, and positive secondary to pneumonia exacerbating her chronic obstructive pulmonary disease. The patient is on broad-spectrum antibiotics. Cultures were sent. We will start the patient on intravenous steroid. 2. Essential tremor. This has been a chronic issue for the patient. We will continue to treat her symptomatically. 3. Depression. Continue Zoloft. 4. Anxiety disorder. Continue Xanax. 5. Code status. The patient is a full code. No surrogate decision maker designated.
[2017-03-14] MEDS: SOLU-MEDROL IV SCH ×2 (08:42→15:06)
[2017-03-14] MEDS: LOVENOX SUBQ SCH (08:43)
[2017-03-14 09:39] LABS: HEMATOCRIT 28.6 % (37.0-47.0); HEMOGLOBIN 8.8 g/dL (12.0-16.0); MCH 27.5 PG (27-31); MCHC 30.8 g/dL (33-37); MCV 89.4 FL (81-99); MPV 10.7 FL (7.4-10.4); RBC 3.2 XMIL (4.2-5.4)
[2017-03-14 09:52] LABS: AGAP 12; BUN 15 mg/dL (8-22); CALCIUM 8.2 mg/dL (8.8-10.2); CHLORIDE 102 mmol/L (98-107); COSMO 282; POTASSIUM 4.1 mmol/L (3.5-5.1); SODIUM 141 mmol/L (136-145); TCO2 27 mmol/L (25-35)
[2017-03-14] MEDS: PATIENT'S OWN MED PO SCH (13:16)
--- NOTE | 2017-03-14 14:43 | CONSULTATION ---
DATE OF CONSULTATION: 03/14/2017 Thank you very much for asking me to see this very unfortunate, 71-year-old female, white. DIAGNOSES: 1. 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 2. Obstructive sleep apnea. 3. Chronic obstructive pulmonary disease. 4. Chronic pain syndrome. 5. Osteoporosis. 6. Chronic anxiety disorder. RECOMMENDATIONS: I agree with the ICU admission. Will give her Proventil and Atrovent bronchodilators, as well as inhaled beta agonist. I agree with the antibiotics. Will monitor gas exchange and work of breathing. HISTORY: This very unfortunate, 71-year-old female, white, has a known history of some chronic anxiety disorder, pain disorder. She takes benzodiazepines and narcotics at home. She was found obtunded in bed today and brought to the hospital, where she was placed on BiPAP and found to have hypercapnia on her ABG. REVIEW OF SYSTEMS: Positive for some weakness, weight loss, and some anorexia. No ENT symptoms of odynophagia, dysphagia, epistaxis, painful swallowing. No eye symptoms of blindness, blurring, or diplopia. No other cardiac or pulmonary symptoms other than mentioned. No nausea, vomiting, constipation, diarrhea. No hematuria, polyuria, nocturia, dysuria. No joint or muscle pain, stiffness, or swelling. No skin rashes, itching, bruises. No seizures, loss of consciousness, or paralysis. Except for the features mentioned above, all other symptoms on the review of systems are negative. PAST MEDICAL HISTORY: Positive for pneumonia, COPD, respiratory failure, anxiety, osteoporosis, and chronic opioid dependency. SOCIAL HISTORY: She is a smoker with a 40 pack year history, recently quit. She lives at home with her and daughter. FAMILY HISTORY: Noncontributory. PHYSICAL EXAMINATION: Vital signs: She has a blood pressure of 95/76 with a pulse of 76, respirations 18, temperature 98.6 degrees. HEENT: Reveals no thyromegaly or adenopathy. Pupils are equal and reactive. Extraocular muscles are intact. Neck: Supple. No bruits. No thyromegaly. No JVD. Chest: Reveals bilateral equal breath sounds with some prolongation of the expiratory faint with expiratory wheezes. Cardiac Exam: Reveals a regular rhythm. Abdomen: Soft. Skin: Warm and dry. Neurologic: She has a tremor bilaterally. She is awake. She moves all 4. DIAGNOSTIC STUDIES: The chest radiograph shows bilateral infiltrates, poor inspiratory effort. ABG shows a 7.36 pH with 53 CO2 and a 74 O2. Sodium is 141, potassium 4.1, chloride 102, CO2 27, BUN 15, creatinine 0.8, glucose 95. The white count is 8,100, with a hemoglobin 8.8, hematocrit 28.6, and platelets 239,000.
[2017-03-14] MEDS: LEVAQUIN 750 MG/D5W 750 MG/150 ML IVPB IV SCH (15:07)
[2017-03-14] MEDS ORDERED: DIFLUCAN PO ONE (16:15)
[2017-03-14] MEDS: VANCOMYCIN 1 GM/NS 1 GM/250 ML IVPB IV SCH (18:02)
[2017-03-14] MEDS: LOTRIMIN 1% CREAM TOP SCH (22:00)
[2017-03-14] MEDS: XANAX PO SCH (22:25)
[2017-03-15] MEDS: SOLU-MEDROL IV SCH ×3 (00:55→20:39)
[2017-03-15] MEDS: DUONEB (A & A) INH SCH ×6 (03:49→23:43)
[2017-03-15] MEDS: MERREM 1 GM in NS 50 ML IV SCH ×3 (06:29→23:03)
[2017-03-15 06:39] LABS: HEMATOCRIT 30.4 % (37.0-47.0); HEMOGLOBIN 9.4 g/dL (12.0-16.0); MCH 27.6 PG (27-31); MCHC 30.9 g/dL (33-37); MCV 89.4 FL (81-99); MPV 10.9 FL (7.4-10.4); RBC 3.4 XMIL (4.2-5.4)
[2017-03-15 07:03] LABS: AGAP 13; BUN 13 mg/dL (8-22); CALCIUM 8.5 mg/dL (8.8-10.2); CHLORIDE 101 mmol/L (98-107); COSMO 282; POTASSIUM 3.9 mmol/L (3.5-5.1); SODIUM 141 mmol/L (136-145); TCO2 27 mmol/L (25-35)
[2017-03-15] MEDS: LOVENOX SUBQ SCH (08:56)
[2017-03-15] MEDS: PATIENT'S OWN MED PO SCH (08:56)
[2017-03-15] MEDS: LOTRIMIN 1% CREAM TOP SCH ×2 (09:40→20:42)
--- NOTE | 2017-03-15 09:44 | EKG Report ---
Test Performed on : 03/13/2017 1:01:36 PM Test Reason : sob, elevated hr Blood Pressure : / mmHG Vent. Rate : 094 BPM Atrial Rate : 094 BPM P-R Int : 136 ms QRS Dur : 082 ms QT Int : 380 ms P-R-T Axes : -07 - 017 degrees QTc Int : 475 ms Sinus rhythm. with frequent premature ventricular complexes. Septal infarct (cited on or before 03-MAR-2017) Abnormal ECG When compared with ECG of 03-MAR-2017 02:01, premature ventricular complexes. are now present Unconfirmed Result
--- NOTE | 2017-03-15 10:05 | PROGRESS NOTE ---
DATE: 03/15/2017 SUBJECTIVE: Patient reports feeling better. No fever or chills reported. No shortness of breath at rest. OBJECTIVE: Vital Signs: Temperature 97.8 degrees, heart rate 22, blood pressure 165/99, and O2 saturation 97% on BiPAP machine. General Examination: This is a chronically ill-looking and frail, 71-year-old, female lying in bed in no acute distress. HEENT: Head is normocephalic and atraumatic. Anicteric sclerae and pale conjunctivae. Mucous membranes dry. Neck: Supple. No JVD noted. No carotid bruits. No lymphadenopathy. No thyromegaly. Cardiovascular Examination: S1 and S2 heard. No murmurs, gallops, or rubs. Regular rate and rhythm. Respiratory Examination: Coarse breath sounds in both pulmonary warner with mild wheezing noted. Patient is not using any accessory muscles or having work of breathing. Abdomen: Soft, nontender to palpation. Bowel sounds present. No organomegaly. Extremities: No clubbing, cyanosis, or edema. Peripheral pulses present in both legs. Neurological Examination: Patient alert and oriented x3. Moves 4 extremities. Laboratory Data: White cell count 8.26, hemoglobin 9.4, hematocrit 30.4, platelets 235,000. BMP unremarkable. ASSESSMENT AND PLAN: 1. Acute respiratory failure secondary to hypercapnia and hypoxia. 2. Long-standing history of chronic obstructive pulmonary disease. 3. Essential tremor. 4. Depression. 5. Anxiety. 6. Code status. Full code. PLAN: 1. The patient is in the hospital for acute respiratory failure and we were using BiPAP since admission but now we are switching to nasal cannula and on 5 L, she is tolerating 90 and 91% of O2 saturations. At this time, we are going to continue with the same management. We have not checked ABG today. The patient currently is on meropenem, levofloxacin, and vancomycin. We have reduced the dose of methylprednisolone to 4 mg IV b.i.d. The patient is receiving albuterol and Atrovent nebulizations. 2. Essential tremor. The patient is going to be given her home medications. 3. Depression. We will continue with Zoloft. 4. Anxiety disorder. We will continue home medications. 5. Code status. Patient is a full code. cc: Deion Mireles MD
[2017-03-15] MEDS: MORPHINE IV PRN ×4 (13:16→23:03)
[2017-03-15] MEDS: NS 1,000 ML IV SCH (14:01)
[2017-03-15] MEDS: LEVAQUIN 750 MG/D5W 750 MG/150 ML IVPB IV SCH (15:56)
[2017-03-15] MEDS: VANCOMYCIN 1 GM/NS 1 GM/250 ML IVPB IV SCH (17:43)
--- NOTE | 2017-03-15 18:22 | Diag Imaging Result Doc PS360 ---
EXAM: CHEST-PORTABLE HISTORY: abnormal exam TECHNIQUE: Portable AP COMPARISON: 03/14/2017 FINDINGS: The patient is rotated to the left. Heart remains enlarged. There are infiltrates in the mid right lung with smaller infiltrates or atelectasis in the right base. No pleural effusions identified. IMPRESSION: Cardiomegaly with right lung infiltrates. Follow-up PA and lateral recommended. Electronically signed by Caleb Frias 03/15/2017 6:19 PM
[2017-03-15] MEDS ORDERED: LASIX IV ONE (18:30)
[2017-03-15] MEDS: XANAX PO SCH (20:38)
[2017-03-16] MEDS: MORPHINE IV PRN ×7 (02:49→22:57)
[2017-03-16] MEDS: DUONEB (A & A) INH SCH ×6 (03:59→23:15)
[2017-03-16 04:46] LABS: HEMATOCRIT 33.4 % (37.0-47.0); HEMOGLOBIN 10.5 g/dL (12.0-16.0); MCH 27.5 PG (27-31); MCHC 31.4 g/dL (33-37); MCV 87.4 FL (81-99); MPV 10.3 FL (7.4-10.4); RBC 3.82 XMIL (4.2-5.4)
[2017-03-16 04:57] LABS: ALLEN TEST YES; BE 13.2 mmoll (-3.0-3.0); BLOOD TYPE ARTERIAL; DRAW SITE R RADIAL; METHB 1.5 % (0.0-1.5); PCO2(98.6) 48 mmHg (35-45); PO2(98.6) 73 mmHg (60-100); SAMPLE BLOOD; SAO2 98.2 % (95.0-100.0); THB 3.6 g/dL (11.5-17.4)
[2017-03-16 04:58] LABS: MODALITY BI PAP
[2017-03-16 05:14] LABS: MAGNESIUM 1.8 mg/dL (1.5-2.7)
[2017-03-16 05:36] LABS: AGAP 13; BUN 15 mg/dL (8-22); CALCIUM 8.5 mg/dL (8.8-10.2); CHLORIDE 96 mmol/L (98-107); COSMO 281; POTASSIUM 2.9 mmol/L (3.5-5.1); SODIUM 140 mmol/L (136-145); TCO2 31 mmol/L (25-35)
[2017-03-16] MEDS: MERREM 1 GM in NS 50 ML IV SCH ×3 (06:18→22:57)
--- NOTE | 2017-03-16 07:23 | Diag Imaging Result Doc PS360 ---
EXAM: CHEST-PORTABLE INDICATION: abnormal exam TECHNIQUE: One view COMPARISON: 03/15/2017 FINDINGS: The patient is rotated toward the left. Right-sided infiltrates have probably improved marginally. There is suggestion of mild blunting of the left costophrenic angle which may indicate a trace effusion. No new consolidations are appreciated. Cardiac silhouette is stable. IMPRESSION: Suggestion of marginal improvement of the mild right-sided infiltrates as described. Electronically signed by John Aponte 03/16/2017 7:20 AM
[2017-03-16] MEDS: SOLU-MEDROL IV SCH ×2 (09:08→20:43)
[2017-03-16] MEDS: LOVENOX SUBQ SCH (09:09)
[2017-03-16] MEDS: LOTRIMIN 1% CREAM TOP SCH ×2 (09:09→20:47)
[2017-03-16] MEDS: PATIENT'S OWN MED PO SCH (09:10)
[2017-03-16] MEDS: POTASSIUM CHLORIDE 60 MEQ in NS 500 ML IV SCH ×2 (10:47→18:06)
--- NOTE | 2017-03-16 11:04 | PROGRESS NOTE ---
DATE: 03/16/2017 SUBJECTIVE: Patient reports not having shortness of breath. No fever or chills reported. The patient is wearing a BiPAP mask. OBJECTIVE: Vital Signs: Temperature 97.9 degrees, heart rate 60, respiratory rate 20, blood pressure 164/90, O2 saturation 95% on BiPAP mask. General Examination: This is a chronically ill- looking and frail, 71-year-old female lying in bed, in no acute distress. HEENT: Head is normocephalic, atraumatic. Anicteric sclerae and pale conjunctivae. Mucous membranes dry. Neck: Supple. No JVD noted. No carotid bruits. No lymphadenopathy. No thyromegaly. Cardiovascular: S1, S2 heard. No murmurs, gallops, or rubs. Regular rate and rhythm. Respiratory: Coarse breath sounds still present as well as wheezing noted in both pulmonary warner. Patient is not using any accessory muscles or having work of breathing. Abdomen: Soft, nontender to palpation. Bowel sounds present. No organomegaly. Extremities: No clubbing, cyanosis, or edema. Peripheral pulses present in both legs. Neurological: Patient is alert and oriented x3. Moves 4 extremities. Cranial nerves 2-12 grossly normal. LABORATORY DATA: ABG shows pH 7.50, pCO2 48. CBC is unremarkable. BMP shows potassium 2.9. ASSESSMENT AND PLAN: 1. Acute respiratory failure secondary to acute hypercapnic respiratory failure. 2. Long-standing history of chronic obstructive pulmonary disease with exacerbation. 3. Essential tremor. 4. Anxiety depressive disorder. 5. mild right-sided pneumonia. 6. Code status: Full code. PLAN: The patient is in the hospital for acute respiratory failure. She is still requiring BiPAP for the most part of the day. We are going to continue with the same management. At this time, the O2 saturation is stable around 90 and above. We are planning to continue with BiPAP, trying to wean off it slowly. We will continue with antibiotics in this case meropenem, levofloxacin and vancomycin. We will continue with IV steroids like methylprednisolone 40 mg 2 times per day. Also, patient is on nebulizations with DuoNeb every 4 hours as scheduled. I think we can add Spiriva to her current treatment and we will see how she does. For essential tremor, patient is going to be given home medications. For depression the patient is on Zoloft. For anxiety disorder, we will continue home medications. The patient is going to be sent to a regular floor today. cc: Deion Mireles MD
[2017-03-16] MEDS: LASIX IV SCH (13:49)
[2017-03-16] MEDS: LEVAQUIN 750 MG/D5W 750 MG/150 ML IVPB IV SCH (15:48)
[2017-03-16] MEDS: SPIRIVA INH SCH (15:54)
[2017-03-16] MEDS: XANAX PO SCH (20:43)
[2017-03-16] MEDS: VANCOMYCIN 1 GM/NS 1 GM/250 ML IVPB IV SCH (20:44)
[2017-03-17] MEDS ORDERED: ATIVAN IV ONE (01:13)
[2017-03-17] MEDS: LASIX IV SCH (01:23)
[2017-03-17] MEDS: DUONEB (A & A) INH SCH ×6 (03:45→22:57)
[2017-03-17 04:37] LABS: MANUAL DIFF NEEDED? NO
[2017-03-17 04:39] LABS: BASO% 0.1 % (0.0-0.8); HEMATOCRIT 35.1 % (37.0-47.0); HEMOGLOBIN 11.2 g/dL (12.0-16.0); IMM GRAN# 0.03 X1000 (0.0-0.04); IMM GRAN% 0.2 % (0.0-0.5); LYMPH# 1.16 X1000 (1.2-3.4); LYMPH% 9.3 % (20.5-51.1); MCH 26.7 PG (27-31); MCHC 31.9 g/dL (33-37); MCV 83.8 FL (81-99); MONO# 1.03 X1000 (0.11-0.59); MONO% 8.2 % (1.7-9.3); MPV 10.2 FL (7.4-10.4); NEUT% 82.2 % (42.2-75.2); PLT 389 X1000 (130-400); RBC 4.19 XMIL (4.2-5.4)
[2017-03-17 04:43] LABS: ALLEN TEST YES; BE 9.3 mmoll (-3.0-3.0); BLOOD TYPE ARTERIAL; DRAW SITE R RADIAL; METHB 0.6 % (0.0-1.5); O2(CT) 14.3 mL/dL (15.0-23.0); PCO2(98.6) 43 mmHg (35-45); PO2(98.6) 58 mmHg (60-100); SAMPLE BLOOD; SAO2 94.5 % (95.0-100.0)
[2017-03-17 04:46] LABS: MODALITY PRB
[2017-03-17 05:01] LABS: AGAP 12; BUN 18 mg/dL (8-22); CALCIUM 8.8 mg/dL (8.8-10.2); CHLORIDE 97 mmol/L (98-107); COSMO 278; MAGNESIUM 1.8 mg/dL (1.5-2.7); POTASSIUM 4.2 mmol/L (3.5-5.1); SODIUM 138 mmol/L (136-145); TCO2 29 mmol/L (25-35)
[2017-03-17] MEDS: MERREM 1 GM in NS 50 ML IV SCH ×3 (06:16→22:53)
--- NOTE | 2017-03-17 07:20 | Diag Imaging Result Doc PS360 ---
EXAM: CHEST-PORTABLE INDICATION: abnormal exam TECHNIQUE: One view COMPARISON: 03/16/2017 FINDINGS: The patient is rotated toward the left. There has been interval complete opacification of the left hemithorax. This is probably a combination of effusion and marked atelectasis. The right lung is stable. The cardiomediastinal silhouette is largely obscured by the dense opacification of the left. IMPRESSION: Interval complete opacification of the left hemithorax as described. Electronically signed by John Aponte 03/17/2017 7:18 AM
[2017-03-17] MEDS: BREO ELLIPTA 200/25 MCG INH INH SCH ×3 (07:56→22:56)
[2017-03-17] MEDS: SPIRIVA INH SCH (08:02)
[2017-03-17] MEDS: MORPHINE IV PRN ×4 (08:09→20:45)
[2017-03-17] MEDS: VANCOMYCIN 1 GM/NS 1 GM/250 ML IVPB IV SCH ×2 (08:39→20:48)
[2017-03-17] MEDS: LOTRIMIN 1% CREAM TOP SCH ×2 (08:44→22:53)
[2017-03-17] MEDS: PATIENT'S OWN MED PO SCH ×2 (08:44→20:45)
[2017-03-17] MEDS: LOVENOX SUBQ SCH (08:44)
[2017-03-17] MEDS: SOLU-MEDROL IV SCH ×2 (08:44→20:45)
[2017-03-17] MEDS ORDERED: PATIENT'S OWN MED PO SCH ×2 (10:00→21:00)
--- NOTE | 2017-03-17 10:34 | PROGRESS NOTE ---
DATE: 03/17/2017 SUBJECTIVE: The patient reports feeling fine. Is still using a BiPAP machine because this morning, she started desaturating while she was on a Ventimask. OBJECTIVE: Vital Signs: Temperature 97.9 degrees, heart rate 82, respiratory rate 28, blood pressure 151/95, O2 saturation 94% on BiPAP machine. General Examination: This is a chronically ill-looking, frail, 71-year-old, female lying in bed, in no acute distress. HEENT: Head is normocephalic and atraumatic. Anicteric sclerae and pale conjunctivae. Mucous membranes moist. Neck: Supple. No JVD noted. No carotid bruits. No lymphadenopathy. No thyromegaly. Cardiovascular Examination: S1 and S2 heard. No murmurs, gallops, or rubs. Regular rate and rhythm. Respiratory Examination: There are some coarse breath sounds present in both bases and mild wheezing noted in both pulmonary warner. Patient is not using any accessory muscles or having work of breathing. Abdomen: Soft, nontender to palpation. Bowel sounds present. No organomegaly. Extremities: No clubbing, cyanosis, or edema. Peripheral pulses present in both legs. Neurological Examination: Patient is alert and oriented x3. Moves 4 extremities. Cranial nerves 2 through 12 grossly normal. Laboratory Data: White cell count 12.5, hemoglobin 11.2, hematocrit 35.1, platelets 389,000. ABG show a pH of 7.5, pCO2 43. BMP unremarkable. ASSESSMENT AND PLAN: 1. Acute hypercapnic respiratory failure. 2. Long-standing history of chronic obstructive pulmonary disease with exacerbation now. 3. Essential tremor. 4. Anxiety and depressive disorder. 5. Mild right-sided pneumonia. 6. Code status. Full code. PLAN: Patient continues to require a BiPAP to keep the oxygenation in the 90s and above. We are going to continue with the same management and we are going to transfer this patient to [facility]. We will keep this patient a couple days more to see if this patient will qualify for a BiPAP at home. Currently, she is on meropenem, levofloxacin, and vancomycin. We will continue with the same management and also continue with the Solu-Medrol 40 mg IV twice daily. DuoNeb every 4 hours has been ordered for her too. For essential tremor, we are going to double the dose of medication that she is receiving here because this is her home dose. We will continue following this patient closely. cc: Deion Mireles MD
[2017-03-17] MEDS: MUCOMYST 20% INH SCH ×2 (11:45→19:10)
[2017-03-17] MEDS: ZOLOFT PO SCH (11:50)
[2017-03-17] MEDS: LEVAQUIN 750 MG/D5W 750 MG/150 ML IVPB IV SCH (15:24)
[2017-03-17] MEDS ORDERED: CALMOSEPTINE OINTMENT TOP PRN (18:37)
[2017-03-17] MEDS: XANAX PO SCH (20:45)
[2017-03-18] MEDS: MORPHINE IV PRN ×6 (00:08→20:25)
[2017-03-18] MEDS: DUONEB (A & A) INH SCH ×6 (03:18→23:35)
[2017-03-18 04:23] LABS: ALLEN TEST YES; BE 7.6 mmoll (-3.0-3.0); BLOOD TYPE ARTERIAL; DRAW SITE R RADIAL; METHB 1.4 % (0.0-1.5); PCO2(98.6) 47 mmHg (35-45); PO2(98.6) 191 mmHg (60-100); SAMPLE BLOOD; SAO2 99.4 % (95.0-100.0); THB 12.2 g/dL (11.5-17.4); pH(98.6) 7.45 (7.35-7.45)
[2017-03-18 04:24] LABS: MODALITY BI PAP
[2017-03-18 05:14] LABS: MANUAL DIFF NEEDED? NO
[2017-03-18 05:21] LABS: HEMATOCRIT 33.3 % (37.0-47.0); HEMOGLOBIN 10.7 g/dL (12.0-16.0); IMM GRAN# 0.06 X1000 (0.0-0.04); IMM GRAN% 0.5 % (0.0-0.5); LYMPH# 1.01 X1000 (1.2-3.4); LYMPH% 8.5 % (20.5-51.1); MCH 27.2 PG (27-31); MCHC 32.1 g/dL (33-37); MCV 84.7 FL (81-99); MONO# 0.76 X1000 (0.11-0.59); MONO% 6.4 % (1.7-9.3); MPV 10.3 FL (7.4-10.4); NEUT% 84.6 % (42.2-75.2); PLT 350 X1000 (130-400); RBC 3.93 XMIL (4.2-5.4)
[2017-03-18 05:44] LABS: AGAP 10; BUN 16 mg/dL (8-22); CALCIUM 8.5 mg/dL (8.8-10.2); CHLORIDE 100 mmol/L (98-107); COSMO 279; POTASSIUM 4.2 mmol/L (3.5-5.1); SODIUM 139 mmol/L (136-145); TCO2 29 mmol/L (25-35)
[2017-03-18] MEDS: MERREM 1 GM in NS 50 ML IV SCH ×3 (06:39→23:22)
[2017-03-18] MEDS: VANCOMYCIN 1 GM/NS 1 GM/250 ML IVPB IV SCH ×2 (07:29→20:26)
[2017-03-18] MEDS: MUCOMYST 20% INH SCH ×2 (07:59→19:25)
[2017-03-18] MEDS: SPIRIVA INH SCH (08:00)
[2017-03-18] MEDS: PATIENT'S OWN MED PO SCH ×2 (08:46→20:39)
[2017-03-18] MEDS: LOVENOX SUBQ SCH (08:46)
[2017-03-18] MEDS: SOLU-MEDROL IV SCH (08:46)
[2017-03-18] MEDS: ZOLOFT PO SCH (08:47)
[2017-03-18] MEDS: LOTRIMIN 1% CREAM TOP SCH ×2 (08:49→20:34)
[2017-03-18] MEDS ORDERED: PATIENT'S OWN MED PO SCH (09:00)
--- NOTE | 2017-03-18 09:30 | Diag Imaging Result Doc PS360 ---
EXAM: CHEST-1 VIEW HISTORY: atelectasis TECHNIQUE: Portable upright AP COMPARISON: 03/17/2017 FINDINGS: Interval decrease in the size of the left pleural effusion. The left lung is reexpanded. I believe a small pleural effusion remains. The heart is enlarged. Mild vascular distention. There is left basilar atelectasis versus an infiltrate. IMPRESSION: Overall interval improvement.. Electronically signed by Caleb Frias 03/18/2017 9:28 AM
[2017-03-18] MEDS ORDERED: DESYREL PO PRN (12:08)
--- NOTE | 2017-03-18 12:39 | PROGRESS NOTE ---
DATE: 03/18/2017 SUBJECTIVE: Patient has no focal complaints. OBJECTIVE: Vital signs: Blood pressure 136/81, heart rate of 88, respiratory rate 24, temperature 97.6 degrees, 94% on 80%. Cardiovascular: Regular rate and rhythm. Pulmonary: Bilateral breath sounds, diminished at the bases. GI: Soft, nontender, nondistended. Bowel sounds are positive. Extremities: No clubbing or cyanosis. Lymphatics: No peripheral edema. Neurological: Nonfocal, except for persistent tremor. LABORATORY DATA: White count 11, hemoglobin and hematocrit 10 and 33, platelets 350,000. PH 7.45, pCO2 47, PaO2 191, which is an improvement. Basic was unremarkable. IMAGING: Chest x-ray was improved left pleural effusion. Briefly this is a 71-year-old female with respiratory failure. PROBLEM LIST: 1. Acute hypercapnic respiratory failure. Weaning BiPAP. Pulmonary I believe is following. 2. Pneumonia. She is on vancomycin, Levaquin and Merrem. Day 6 on the Levaquin. Day 6 on the Merrem. Day 6 on the vancomycin. May consider being able to deescalate the vancomycin soon. I am not completely sure she still requires that. 3. Chronic obstructive pulmonary disease exacerbation appears to be improving. We will decrease her Solu-Medrol and follow. 4. Disposition: We have got to work on continuing to wean her O2 as much as possible before we can transition her to the floor. She will likely need BiPAP at home. Continue to monitor closely. cc: Raji Fernandez MD
[2017-03-18] MEDS: LEVAQUIN 750 MG/D5W 750 MG/150 ML IVPB IV SCH (15:11)
[2017-03-18] MEDS: BREO ELLIPTA 200/25 MCG INH INH SCH (19:25)
[2017-03-18] MEDS: XANAX PO SCH (20:26)
[2017-03-19] MEDS: MORPHINE IV PRN ×7 (00:01→20:14)
[2017-03-19] MEDS: DUONEB (A & A) INH SCH ×6 (03:25→23:25)
[2017-03-19 04:22] LABS: ALLEN TEST YES; BE 5.4 mmoll (-3.0-3.0); BLOOD TYPE ARTERIAL; DRAW SITE R RADIAL; METHB 0.7 % (0.0-1.5); O2(CT) 15.1 mL/dL (15.0-23.0); PCO2(98.6) 46 mmHg (35-45); PO2(98.6) 174 mmHg (60-100); SAMPLE BLOOD; SAO2 99.8 % (95.0-100.0); THB 10.7 g/dL (11.5-17.4); pH(98.6) 7.43 (7.35-7.45)
[2017-03-19 04:23] LABS: MODALITY NRB
[2017-03-19 04:47] LABS: MANUAL DIFF NEEDED? NO
[2017-03-19 05:36] LABS: AGAP 13; BUN 15 mg/dL (8-22); CALCIUM 8.2 mg/dL (8.8-10.2); CHLORIDE 100 mmol/L (98-107); COSMO 278; POTASSIUM 3.5 mmol/L (3.5-5.1); SODIUM 139 mmol/L (136-145); TCO2 26 mmol/L (25-35)
[2017-03-19 05:41] LABS: BASO% 0.1 % (0.0-0.8); EOS# 0.07 X1000 (0.0-0.7); EOS% 0.6 % (0.0-10.0); HEMATOCRIT 31.2 % (37.0-47.0); HEMOGLOBIN 9.9 g/dL (12.0-16.0); IMM GRAN# 0.09 X1000 (0.0-0.04); IMM GRAN% 0.8 % (0.0-0.5); LYMPH# 1.52 X1000 (1.2-3.4); LYMPH% 14.1 % (20.5-51.1); MCH 27.3 PG (27-31); MCHC 31.7 g/dL (33-37); MONO# 1.26 X1000 (0.11-0.59); MONO% 11.7 % (1.7-9.3); MPV 10.1 FL (7.4-10.4); NEUT% 72.7 % (42.2-75.2); PLT 310 X1000 (130-400); RBC 3.63 XMIL (4.2-5.4)
--- NOTE | 2017-03-19 06:08 | Diag Imaging Result Doc PS360 ---
EXAM: CHEST-PORTABLE HISTORY: dyspnea TECHNIQUE: Portable AP COMPARISON: 03/18/2017 FINDINGS: The patient is rotated to the left. The heart is mildly prominent. Improved aeration of the left base. Increased interstitial markings remain in the upper right lung. Development of atelectasis or a small infiltrate in the right costophrenic angle. The patient has scoliosis. IMPRESSION: Overall improvement in the left base, but with development of atelectasis or a tiny infiltrate in the right costophrenic angle. Electronically signed by Caleb Frias 03/19/2017 6:05 AM
[2017-03-19] MEDS: MERREM 1 GM in NS 50 ML IV SCH ×3 (06:23→22:25)
[2017-03-19] MEDS: SPIRIVA INH SCH (07:55)
[2017-03-19] MEDS: MUCOMYST 20% INH SCH ×2 (07:55→19:35)
[2017-03-19] MEDS: SOLU-MEDROL IV SCH (08:37)
[2017-03-19] MEDS: LOTRIMIN 1% CREAM TOP SCH (08:37)
[2017-03-19] MEDS: LOVENOX SUBQ SCH (08:37)
[2017-03-19] MEDS: VANCOMYCIN 1 GM/NS 1 GM/250 ML IVPB IV SCH (08:37)
[2017-03-19] MEDS: ZOLOFT PO SCH (08:38)
[2017-03-19] MEDS: PATIENT'S OWN MED PO SCH ×2 (09:00→20:14)
[2017-03-19] MEDS ORDERED: LASIX IV ONE (09:57)
--- NOTE | 2017-03-19 10:31 | PROGRESS NOTE ---
DATE: 03/19/2017 SUBJECTIVE: The patient has no focal complaints. OBJECTIVE: Vital signs: Blood pressure is 108/96, heart rate is 70, respiratory rate 22, temperature 98.3. She is down to 80% or maybe a 60% face mask currently. Cardiovascular: Regular rate and rhythm. Pulmonary: Bilateral breath sounds, clear to auscultation. GI: Soft, nontender, nondistended, bowel sounds are positive. LABORATORY DATA: White count 10, hemoglobin and hematocrit 9.9 and 31, platelets of 310. pH 7.43, pCO2 of 46, PaO2 of 174. Basic was normal. IMAGING: Chest x-ray looked okay, some atelectasis in the right costophrenic angle. ASSESSMENT: This is a 71-year-old female with acute on chronic respiratory failure. 1. Acute on chronic hypercapnic respiratory failure, weaning O2 and BiPAP, and she seems to be much improved today. 2. Pneumonia. She is on day 7 of Merrem, vancomycin, and Levaquin. May be able to deescalate her vancomycin. 3. Chronic obstructive pulmonary disease exacerbation, appears to be improving. She is on daily Solu-Medrol. Continue breathing treatments. She is on Mucomyst. DISPOSITION: She is overall improved. Will continue to wean her O2. She may need BiPAP or Trilogy or some other issue at home. Will continue to follow. cc: Raji Fernandez MD
[2017-03-19] MEDS: LEVAQUIN 750 MG/D5W 750 MG/150 ML IVPB IV SCH (15:54)
[2017-03-19] MEDS: BREO ELLIPTA 200/25 MCG INH INH SCH (19:35)
[2017-03-19] MEDS ORDERED: SEROQUEL PO ONE (20:00)
[2017-03-19] MEDS: XANAX PO SCH (20:15)
[2017-03-19] MEDS ORDERED: DESYREL PO SCH (21:00)
[2017-03-20] MEDS: DUONEB (A & A) INH SCH ×6 (03:05→22:50)
[2017-03-20 04:29] LABS: ALLEN TEST YES; BE 11.5 mmoll (-3.0-3.0); BLOOD TYPE ARTERIAL; DRAW SITE R RADIAL; METHB 0.5 % (0.0-1.5); O2(CT) 14.5 mL/dL (15.0-23.0); PCO2(98.6) 49 mmHg (35-45); PO2(98.6) 68 mmHg (60-100); SAMPLE BLOOD; SAO2 96.7 % (95.0-100.0); THB 10.9 g/dL (11.5-17.4); pH(98.6) 7.48 (7.35-7.45)
[2017-03-20 04:30] LABS: MODALITY BI PAP
[2017-03-20 06:19] LABS: MANUAL DIFF NEEDED? NO
[2017-03-20 06:24] LABS: BASO% 0.1 % (0.0-0.8); EOS# 0.06 X1000 (0.0-0.7); EOS% 0.6 % (0.0-10.0); HEMATOCRIT 34.4 % (37.0-47.0); HEMOGLOBIN 10.9 g/dL (12.0-16.0); IMM GRAN# 0.11 X1000 (0.0-0.04); IMM GRAN% 1.2 % (0.0-0.5); LYMPH# 1.59 X1000 (1.2-3.4); LYMPH% 16.6 % (20.5-51.1); MCH 26.9 PG (27-31); MCHC 31.7 g/dL (33-37); MCV 84.9 FL (81-99); MONO# 1.13 X1000 (0.11-0.59); MONO% 11.8 % (1.7-9.3); MPV 10.5 FL (7.4-10.4); NEUT% 69.7 % (42.2-75.2); PLT 323 X1000 (130-400); RBC 4.05 XMIL (4.2-5.4)
[2017-03-20 06:53] LABS: AGAP 12; BUN 16 mg/dL (8-22); CALCIUM 8.3 mg/dL (8.8-10.2); CHLORIDE 99 mmol/L (98-107); COSMO 283; POTASSIUM 3.4 mmol/L (3.5-5.1); SODIUM 142 mmol/L (136-145); TCO2 31 mmol/L (25-35)
[2017-03-20 07:16] LABS: MAGNESIUM 2.1 mg/dL (1.5-2.7)
[2017-03-20] MEDS: MERREM 1 GM in NS 50 ML IV SCH ×3 (07:42→23:14)
[2017-03-20] MEDS: MUCOMYST 20% INH SCH ×2 (08:06→19:35)
[2017-03-20] MEDS: SPIRIVA INH SCH (08:06)
--- NOTE | 2017-03-20 08:30 | Diag Imaging Result Doc PS360 ---
CHEST-PORTABLE - 03/20/2017 INDICATION: dyspnea TECHNIQUE: COMPARISON: 03/19/2017 FINDINGS: Stable mild cardiomegaly. There is worsening retrocardiac consolidation/atelectasis. There is probably also some effusion here. There is improved aeration of the right lower lobe, with sharp visualization of the hemidiaphragm. IMPRESSION: Mixed changes, with overall no significant change from prior. Electronically signed by Howard Clancy 03/20/2017 8:28 AM
[2017-03-20] MEDS: ZOLOFT PO SCH (08:55)
[2017-03-20] MEDS: SOLU-MEDROL IV SCH (08:56)
[2017-03-20] MEDS: LOVENOX SUBQ SCH (08:56)
[2017-03-20] MEDS: MORPHINE IV PRN ×5 (09:02→21:35)
[2017-03-20] MEDS: PATIENT'S OWN MED PO SCH ×2 (09:18→21:06)
[2017-03-20] MEDS: LOTRIMIN 1% CREAM TOP SCH ×3 (09:19→21:05)
[2017-03-20] MEDS ORDERED: SOLU-MEDROL IV SCH (11:34)
[2017-03-20] MEDS ORDERED: POTASSIUM CHLORIDE 20 MEQ/SWI 20 MEQ/100 ML IVPB IV SCH (12:00)
[2017-03-20] MEDS: NICODERM PATCH TD PRN (12:01)
[2017-03-20] MEDS ORDERED: KLOR-CON PO ONE (12:40)
--- NOTE | 2017-03-20 12:55 | PROGRESS NOTE ---
DATE: 03/20/2017 SUBJECTIVE: The patient has no complaints, except she is upset because she still feels like she is not sleeping. Last night she got scheduled trazodone, she got 1 mg of Xanax and she got an extra 50 mg of Seroquel. She says she did not get any medications, but I do not think she completely realizes how much she did get, but she still feels very anxious at night. OBJECTIVE: Vital signs: On physical exam, blood pressure was 128/80, heart rate of 81 respiratory rate of 24, temperature 97.7 degrees 93% on 50%. Cardiovascular: Regular rate and rhythm. Pulmonary: Bilateral breath sounds. Clear to auscultation. GI: Soft, nontender, nondistended. Bowel sounds are positive. Extremity exam: No clubbing or cyanosis. Lymphatic exam: No peripheral edema. I do not appreciate wheezing on exam. LABORATORY DATA: White count 9.5, hemoglobin and hematocrit 10 and 34, platelets 323. A pH 7.48, pCO2 49, PaO2 68. Potassium is 3.4. PROBLEM LIST: 1. Acute on chronic respiratory failure. We are weaning BiPAP trying to wean O2. She is on breathing treatments, steroids, Mucomyst, and we will continue to follow. 2. Pneumonia. She is on Levaquin and Merrem on day eight. 3. Chronic obstructive pulmonary disease exacerbation. I think her bronchospasm is improving. She is on Mucomyst breathing treatments. I am going to decrease her Solu-Medrol slightly, or we could consider just switching it to oral and then will go from there. Her anxiety is probably multifactorial; she has multiple issues going on at the same time. So, we will continue to follow. Obviously we do not want to over sedate her, but she still seems to be awake at night. I am going to go up a little bit on her trazodone at night and switch her to Klonopin, which may help her relax a little bit more. Again, we have to be very cautious considering all her breathing issues; we do not want to disturb her respiratory status. cc: Raji Fernandez MD
[2017-03-20] MEDS: LEVAQUIN 750 MG/D5W 750 MG/150 ML IVPB IV SCH (15:05)
[2017-03-20] MEDS: KLONOPIN PO PRN (15:06)
[2017-03-20] MEDS: BREO ELLIPTA 200/25 MCG INH INH SCH (19:35)
[2017-03-20] MEDS ORDERED: KLONOPIN PO SCH (21:00)
[2017-03-20] MEDS ORDERED: DESYREL PO SCH (21:00)
[2017-03-20] MEDS: KLONOPIN PO SCH (21:04)
[2017-03-20] MEDS: SEROQUEL PO SCH (23:55)
[2017-03-21] MEDS: MORPHINE IV PRN ×6 (00:30→22:00)
[2017-03-21] MEDS: DUONEB (A & A) INH SCH ×6 (03:20→23:15)
[2017-03-21 04:35] LABS: ALLEN TEST YES; BE 7.4 mmoll (-3.0-3.0); BLOOD TYPE ARTERIAL; DRAW SITE R RADIAL; PO2(98.6) 61 mmHg (60-100); SAMPLE BLOOD; pH(98.6) 7.42 (7.35-7.45)
[2017-03-21 04:36] LABS: MODALITY VENTIMASK
[2017-03-21 04:37] LABS: PCO2(98.6) 51 mmHg (35-45)
[2017-03-21 05:43] LABS: MANUAL DIFF NEEDED? NO
[2017-03-21 05:48] LABS: BASO% 0.1 % (0.0-0.8); EOS# 0.05 X1000 (0.0-0.7); EOS% 0.6 % (0.0-10.0); HEMATOCRIT 32.9 % (37.0-47.0); HEMOGLOBIN 10.3 g/dL (12.0-16.0); IMM GRAN# 0.15 X1000 (0.0-0.04); IMM GRAN% 1.8 % (0.0-0.5); LYMPH# 1.73 X1000 (1.2-3.4); LYMPH% 21.1 % (20.5-51.1); MCH 26.8 PG (27-31); MCHC 31.3 g/dL (33-37); MCV 85.7 FL (81-99); MONO# 1.03 X1000 (0.11-0.59); MONO% 12.6 % (1.7-9.3); MPV 10.4 FL (7.4-10.4); NEUT% 63.8 % (42.2-75.2); PLT 289 X1000 (130-400); RBC 3.84 XMIL (4.2-5.4)
[2017-03-21 06:31] LABS: AGAP 12; BUN 22 mg/dL (8-22); CALCIUM 8.7 mg/dL (8.8-10.2); CHLORIDE 103 mmol/L (98-107); COSMO 288; POTASSIUM 4.1 mmol/L (3.5-5.1); SODIUM 143 mmol/L (136-145); TCO2 28 mmol/L (25-35)
[2017-03-21] MEDS: MERREM 1 GM in NS 50 ML IV SCH ×3 (06:43→23:13)
[2017-03-21 07:36] LABS: MAGNESIUM 2.1 mg/dL (1.5-2.7)
[2017-03-21] MEDS: SPIRIVA INH SCH (07:49)
[2017-03-21] MEDS: MUCOMYST 20% INH SCH ×2 (07:49→19:40)
[2017-03-21] MEDS: PREDNISONE PO SCH (09:11)
[2017-03-21] MEDS: ZOLOFT PO SCH (09:11)
[2017-03-21] MEDS: LOVENOX SUBQ SCH (09:11)
[2017-03-21] MEDS: NICODERM PATCH TD PRN (09:11)
[2017-03-21] MEDS: PATIENT'S OWN MED PO SCH ×2 (09:20→21:00)
[2017-03-21] MEDS: LOTRIMIN 1% CREAM TOP SCH ×2 (09:20→23:05)
[2017-03-21] MEDS ORDERED: PRILOSEC PO ONE (11:35)
[2017-03-21] MEDS ORDERED: ZOFRAN IV PRN (11:35)
[2017-03-21] MEDS ORDERED: DESYREL PO PRN (12:19)
[2017-03-21] MEDS: KLONOPIN PO PRN (14:57)
[2017-03-21] MEDS: LEVAQUIN 750 MG/D5W 750 MG/150 ML IVPB IV SCH (14:57)
--- NOTE | 2017-03-21 15:26 | PROGRESS NOTE ---
DATE: 03/21/2017 SUBJECTIVE: The patient has no focal complaints except still difficulty sleeping. She got trazodone, Seroquel and Klonopin and still having issues at night that may be related to her BiPAP I am not sure. OBJECTIVE: Vital signs: Blood pressure 139/96, heart rate of 103, respiratory rate of 21, temperature 98.9 degrees, 91% on 50%. Cardiovascular: Regular rate and rhythm. Pulmonary: Bilateral breath sounds. Clear to auscultation. Diminished at the bases. No wheezing. GI: Soft, nontender, nondistended. Bowel sounds are positive. Extremities: No clubbing or cyanosis. Lymphatics: No peripheral edema. Neurological: Nonfocal. LABORATORY DATA: White count 8, hemoglobin and hematocrit 10 and 32, platelets 289,000, pH 7.42, pCO2 51, PaO2 61 on 50%. Basic was normal. PROBLEM LIST: 1. Acute on chronic hypercapnic respiratory failure. She seems to be doing okay. We are slowly weaning oxygen. She is on 50% on breathing treatments, steroids, Mucomyst. Pulmonary is following. 2. Pneumonia. She is on Levaquin and Merrem day 9. Slowly improving. 3. Chronic obstructive pulmonary disease exacerbation. She is on oral steroids, seems to be doing okay. 4. Insomnia issues. Her Seroquel has already been scheduled. That seems to be only thing that works. I am just going to put the trazodone p.r.n. and will titrate up on the Seroquel as needed. She has a p.r.n. dose of Klonopin as well. Again we do not want to over sedate her. DISPOSITION: I think if we can get her down to nasal cannula she possibly could go to the floor. Will continue to follow. cc: Raji Fernandez MD
[2017-03-21] MEDS: BREO ELLIPTA 200/25 MCG INH INH SCH (19:40)
[2017-03-21] MEDS: SEROQUEL PO SCH (21:00)
[2017-03-21] MEDS: KLONOPIN PO SCH (21:00)
[2017-03-22] MEDS: DUONEB (A & A) INH SCH ×6 (03:35→23:10)
[2017-03-22 05:38] LABS: MANUAL DIFF NEEDED? NO
[2017-03-22 05:40] LABS: BASO% 0.2 % (0.0-0.8); EOS# 0.08 X1000 (0.0-0.7); HEMOGLOBIN 10.4 g/dL (12.0-16.0); IMM GRAN# 0.13 X1000 (0.0-0.04); IMM GRAN% 1.6 % (0.0-0.5); LYMPH# 1.49 X1000 (1.2-3.4); LYMPH% 18.4 % (20.5-51.1); MCH 26.4 PG (27-31); MCHC 30.6 g/dL (33-37); MCV 86.3 FL (81-99); MONO# 0.96 X1000 (0.11-0.59); MONO% 11.9 % (1.7-9.3); MPV 9.9 FL (7.4-10.4); NEUT% 66.9 % (42.2-75.2); PLT 274 X1000 (130-400); RBC 3.94 XMIL (4.2-5.4)
[2017-03-22 06:01] LABS: AGAP 10; BUN 18 mg/dL (8-22); CALCIUM 8.4 mg/dL (8.8-10.2); CHLORIDE 102 mmol/L (98-107); COSMO 285; SODIUM 142 mmol/L (136-145); TCO2 30 mmol/L (25-35)
[2017-03-22] MEDS: PRILOSEC PO SCH (07:00)
--- NOTE | 2017-03-22 07:16 | Diag Imaging Result Doc PS360 ---
EXAM: CHEST-PORTABLE HISTORY: abnormal exam TECHNIQUE: Erect AP portable at 0525 COMMENT: Compared to the previous study of 03/20/2017 the inspiration is less optimal however there is been clearing of the left lower lobe since the previous study. There is some atelectasis over the right hemidiaphragm particularly in the costophrenic angle region. IMPRESSION: Right lower lobe atelectasis. Improvement in left lower lobe atelectasis versus pneumonia. Electronically signed by Madhav Salcido 03/22/2017 7:14 AM
[2017-03-22] MEDS: MERREM 1 GM in NS 50 ML IV SCH ×3 (07:21→23:30)
[2017-03-22] MEDS: SPIRIVA INH SCH (07:37)
[2017-03-22] MEDS: MUCOMYST 20% INH SCH ×2 (07:37→19:25)
[2017-03-22] MEDS: ZOLOFT PO SCH (08:04)
[2017-03-22] MEDS: LOVENOX SUBQ SCH (08:04)
[2017-03-22] MEDS: PREDNISONE PO SCH (08:04)
[2017-03-22] MEDS: PATIENT'S OWN MED PO SCH (08:04)
[2017-03-22] MEDS: LOTRIMIN 1% CREAM TOP SCH ×2 (08:05→21:23)
[2017-03-22] MEDS: MORPHINE IV PRN ×5 (08:07→21:22)
--- NOTE | 2017-03-22 10:30 | PROGRESS NOTE ---
DATE: 03/22/2017 SUBJECTIVE: Patient has no focal complaints. OBJECTIVE: Vital Signs: Blood pressure 121/74, heart rate of 85, respiratory rate of 22, temperature 98.3 degrees, 97% on 40%. Laboratory Data: White count 8, hemoglobin and hematocrit 10 and 34, platelets 274,000. CMP within normal limits. Chest x-ray was clear except for some developing right lower lobe atelectasis. PROBLEM LIST: 1. Acute on chronic hypercapnic respiratory failure. She seems to be improving. We are weaning oxygen slowly. Continue DuoNebs, steroids, Mucomyst. Dr. Osborn is managing her BiPAP and weaning her off the ventilator. 2. Pneumonia. She is on day 10 of Levaquin and Merrem, and is clinically improving. 3. Chronic obstructive pulmonary disease exacerbation. Continue steroids, breathing treatments, and follow. 4. Insomnia. She appears to be finally stabilized on current nocturnal medications. DISPOSITION: Once we get her down to a nasal cannula, should be able to move to the floor and then discharge subsequently. cc: Raji Fernandez MD
[2017-03-22] MEDS: NICODERM PATCH TD PRN (11:23)
[2017-03-22] MEDS: LEVAQUIN 750 MG/D5W 750 MG/150 ML IVPB IV SCH (14:54)
[2017-03-22] MEDS: KLONOPIN PO PRN (14:59)
[2017-03-22] MEDS: BREO ELLIPTA 200/25 MCG INH INH SCH (19:25)
[2017-03-22] MEDS ORDERED: PATIENT'S OWN MED PO ONE (21:00)
[2017-03-22] MEDS: SEROQUEL PO SCH (21:23)
[2017-03-22] MEDS: KLONOPIN PO SCH (21:23)
[2017-03-23] MEDS: DUONEB (A & A) INH SCH ×6 (04:01→23:39)
[2017-03-23] MEDS: MERREM 1 GM in NS 50 ML IV SCH ×3 (06:23→23:30)
[2017-03-23] MEDS: PRILOSEC PO SCH (06:23)
[2017-03-23 07:07] LABS: MANUAL DIFF NEEDED? NO
[2017-03-23 07:13] LABS: BASO% 0.3 % (0.0-0.8); EOS# 0.07 X1000 (0.0-0.7); HEMATOCRIT 35.5 % (37.0-47.0); HEMOGLOBIN 11.1 g/dL (12.0-16.0); IMM GRAN# 0.14 X1000 (0.0-0.04); IMM GRAN% 1.9 % (0.0-0.5); LYMPH# 1.46 X1000 (1.2-3.4); MCH 26.7 PG (27-31); MCHC 31.3 g/dL (33-37); MCV 85.5 FL (81-99); MONO# 0.84 X1000 (0.11-0.59); MONO% 11.5 % (1.7-9.3); MPV 10.5 FL (7.4-10.4); NEUT% 65.3 % (42.2-75.2); PLT 253 X1000 (130-400); RBC 4.15 XMIL (4.2-5.4)
[2017-03-23] MEDS: SPIRIVA INH SCH (07:30)
[2017-03-23] MEDS: MUCOMYST 20% INH SCH ×2 (07:30→19:25)
[2017-03-23 07:57] LABS: AGAP 9; BUN 21 mg/dL (8-22); CALCIUM 8.7 mg/dL (8.8-10.2); CHLORIDE 100 mmol/L (98-107); COSMO 284; POTASSIUM 4.3 mmol/L (3.5-5.1); SODIUM 141 mmol/L (136-145); TCO2 32 mmol/L (25-35)
[2017-03-23] MEDS: MORPHINE IV PRN ×5 (09:46→22:07)
[2017-03-23] MEDS: ZOLOFT PO SCH (09:47)
[2017-03-23] MEDS: LOVENOX SUBQ SCH (09:47)
[2017-03-23] MEDS: PREDNISONE PO SCH (09:47)
[2017-03-23] MEDS: PATIENT'S OWN MED PO SCH ×3 (09:47→22:10)
[2017-03-23] MEDS: LOTRIMIN 1% CREAM TOP SCH ×2 (09:48→22:10)
--- NOTE | 2017-03-23 14:06 | PROGRESS NOTE ---
DATE: 03/23/2017 SUBJECTIVE: Today Ms. Bermudez refers to be doing fine. Shortness of breath has significantly improved. OBJECTIVE: Vital signs: Blood pressure is 114/75, pulse of 87, respirations 16, temperature 98.4 degrees. General: Ms. Bermudez is a 71-year-old female. She is in bed, not seemingly in distress. HEENT: Mucosa is pink and moist. Anicteric. Acyanotic. Neck: Supple. Chest: Good air entry bilaterally. A few distant expiratory wheezing. Cardiovascular: Regular rate and rhythm. Abdomen: Soft, nontender. Extremities: No pedal edema. SCOURER: Patient is alert and oriented. No focal neurological deficit. The patient does have some intentional tremor especially involving the lower drawer and the head. LABORATORY DATA: CBC is reviewed and is unremarkable. Chemistry is also reviewed, completely normal. MEDICATIONS: Have also been reviewed. ASSESSMENT: 1. Acute on chronic hypercarbic respiratory failure. 2. Pneumonia improved. 3. Chronic obstructive pulmonary disease exacerbation. 4. History of obstructive sleep apnea. In general, I think Ms. Bermudez is significantly improved. We are still weaning her off on the oxygen demand. She is currently on 4 L which I think is where she normally sits. We plan to discharge her home tomorrow, as she is completed 10 days of IV antibiotics so she will not need any p.o. antibiotics going home tomorrow. cc: Kash Walter MD
[2017-03-23] MEDS ORDERED: NS 250 ML ONE (15:16)
[2017-03-23] MEDS: LEVAQUIN 750 MG/D5W 750 MG/150 ML IVPB IV SCH (15:18)
[2017-03-23] MEDS: KLONOPIN PO PRN (15:18)
[2017-03-23] MEDS: BREO ELLIPTA 200/25 MCG INH INH SCH (20:43)
[2017-03-23] MEDS: KLONOPIN PO SCH (22:08)
[2017-03-23] MEDS: SEROQUEL PO SCH (22:08)
[2017-03-24] MEDS: DUONEB (A & A) INH SCH ×5 (04:10→23:20)
[2017-03-24 05:57] LABS: ALLEN TEST YES; BE 8.6 mmoll (-3.0-3.0); BLOOD TYPE ARTERIAL; DRAW SITE R RADIAL; METHB 0.8 % (0.0-1.5); O2(CT) 13.5 mL/dL (15.0-23.0); PO2(98.6) 54 mmHg (60-100); SAMPLE BLOOD; SAO2 91.8 % (95.0-100.0); THB 10.7 g/dL (11.5-17.4); pH(98.6) 7.42 (7.35-7.45)
[2017-03-24 05:59] LABS: MODALITY BI PAP; PCO2(98.6) 53 mmHg (35-45)
--- NOTE | 2017-03-24 06:11 | Diag Imaging Result Doc PS360 ---
EXAM: CHEST-PORTABLE HISTORY: abnormal exam TECHNIQUE: Portable AP COMPARISON: 03/22/2017 FINDINGS: The lungs are well expanded. The heart is not enlarged. Mild increased markings in the mid and lower right lung with mild hilar prominence persists. No pleural effusions identified. IMPRESSION: No definite interval change. Electronically signed by Caleb Frias 03/24/2017 6:09 AM
[2017-03-24] MEDS: MUCOMYST 20% INH SCH ×2 (07:38→19:25)
[2017-03-24] MEDS: SPIRIVA INH SCH (07:41)
[2017-03-24] MEDS: PRILOSEC PO SCH (07:55)
[2017-03-24] MEDS: LOVENOX SUBQ SCH (09:05)
[2017-03-24] MEDS: PATIENT'S OWN MED PO SCH ×3 (09:05→23:36)
[2017-03-24] MEDS: ZOLOFT PO SCH (09:05)
[2017-03-24] MEDS: PREDNISONE PO SCH (09:05)
[2017-03-24] MEDS: LOTRIMIN 1% CREAM TOP SCH ×2 (09:06→23:36)
[2017-03-24] MEDS: MERREM 1 GM in NS 50 ML IV SCH ×2 (09:06→18:04)
[2017-03-24] MEDS: MORPHINE IV PRN ×4 (09:07→23:35)
[2017-03-24] MEDS: NICODERM PATCH TD PRN (09:19)
[2017-03-24] MEDS: KLONOPIN PO PRN (14:31)
--- NOTE | 2017-03-24 16:59 | DISCHARGE SUMMARY ---
ADMISSION DATE: 03/13/2017 DISCHARGE DATE: 03/24/2017 Length of stay was 8 days. DISPOSITION: Is home with home health. FOLLOWUP: 1. Follow up with Dr. Beckman 2. Dr. Osborn. ADMISSION DIAGNOSES: 1. Acute on chronic hypercarbic and hypoxemic respiratory failure. 2. Healthcare associated pneumonia. 3. Sepsis. 4. Chronic obstructive pulmonary disease. 5. Obstructive sleep apnea. DISCHARGE DIAGNOSES: 1. Acute on chronic hypercarbic respiratory failure. 2. Pneumonia improved. 3. Chronic obstructive pulmonary disease exacerbation. 4. History of sleep apnea. 5. Sepsis on presentation due to underlying pneumonia improved. DISCHARGE MEDICATIONS: 1. Folic acid 1 mg daily. 2. Albuterol nebs. 3. Pregabalin 75 mg daily. 4. Nexium. 5. Roflumilast 500 mcg daily. 6. Risedronate 150 p.o. daily. 7. Alprazolam 1 mg daily. 8. Sertraline. 9. Ellipta 200/250 mcg inhaler 1 puff daily. 10. Spiriva 1 puff daily. PRESENTING COMPLAINT: Altered mental status. Shortness of breath. HISTORY OF PRESENTING COMPLAINT: Ms. Bermudez is a 71-year-old female, known to our services. Recently discharged about 5 days ago due to respiratory failure and pneumonia. Patient came back after 5 days because she was very somnolent. Presented to the emergency department where O2 sats were in the 70s. Patient was placed on BiPAP and admitted for further medical care. HOSPITAL COURSE: The patient did pretty well during the hospital stay, was treated in regular fashion with IV antibiotics, steroids, adequate pulmonary toilette and bronchodilation. Pulmonary Medicine was consulted. Progressively patient improved. Did use p.r.n. BiPAP at night. However her oxygen demand continues to improve until she maintained 4 L of oxygen for over 2 days in a row. Today she is doing a whole lot better. She was sitting up in the chair and we think that she is stable enough to be discharged. Patient has had complete treatment with IV antibiotics and also steroids so she will not be going home on any of that. She will continue with her inhalers and will follow up with Dr. Teresa. At the time of discharge, the patient actually denied any shortness of breath or any symptoms but she did mention that she needed some parts for her CPAP machine. We will therefore defer this to her manager business development hospice. Once the manager business development hospice reviewed the patient she will be able to go home. back shoe worker has been able to get the hose and mask for her CPAP machine use. Time spent for discharge was 36 minutes. cc: Kash Walter MD MTDD
[2017-03-24] MEDS: LEVAQUIN 750 MG/D5W 750 MG/150 ML IVPB IV SCH (18:04)
[2017-03-24] MEDS: BREO ELLIPTA 200/25 MCG INH INH SCH (19:25)
[2017-03-24] MEDS: SEROQUEL PO SCH (23:35)
[2017-03-24] MEDS: KLONOPIN PO SCH (23:35)
[2017-03-25] MEDS: DUONEB (A & A) INH SCH ×4 (03:40→16:52)
[2017-03-25] MEDS: PRILOSEC PO SCH (06:12)
[2017-03-25] MEDS: MORPHINE IV PRN ×3 (06:14→14:08)
[2017-03-25 06:23] LABS: ALLEN TEST YES; BE 8.6 mmoll (-3.0-3.0); BLOOD TYPE ARTERIAL; DRAW SITE R RADIAL; METHB 0.7 % (0.0-1.5); O2(CT) 12.4 mL/dL (15.0-23.0); PO2(98.6) 53 mmHg (60-100); SAMPLE BLOOD; THB 9.9 g/dL (11.5-17.4); pH(98.6) 7.42 (7.35-7.45)
[2017-03-25 06:24] LABS: MODALITY CANNULA; PCO2(98.6) 53 mmHg (35-45)
[2017-03-25] MEDS: SPIRIVA INH SCH (07:45)
[2017-03-25] MEDS: MUCOMYST 20% INH SCH (07:45)
[2017-03-25] MEDS: PATIENT'S OWN MED PO SCH ×2 (08:02→14:11)
[2017-03-25] MEDS: PREDNISONE PO SCH (08:03)
[2017-03-25] MEDS: LOTRIMIN 1% CREAM TOP SCH (08:03)
[2017-03-25] MEDS: ZOLOFT PO SCH (08:03)
[2017-03-25] MEDS: LOVENOX SUBQ SCH (08:03)
[2017-03-25] MEDS: KLONOPIN PO PRN (14:15)
[2017-03-25] MEDS: LEVAQUIN 750 MG/D5W 750 MG/150 ML IVPB IV SCH (16:18)
[2017-03-25 16:34] VITALS: BP 98/65
--- NOTE | 2017-03-25 16:52 | PROGRESS NOTE ---
DATE: 03/25/2017 SUBJECTIVE: Ms. Bermudez was actually discharged yesterday but we wanted to evaluate her oxygen needs. Pulmonary actually evaluated her yesterday and thought that her O2 saturation level was a little bit too low and wanted to observe her 1 more day. This morning, I spoke with Dr. Osborn and he was okay for the patient to be discharged today and follow up with him. OBJECTIVE: Vital signs: Today her vitals, blood pressure is 108/67, pulse 84, respirations 20, temp is 98.2 degrees. General: Ms. Bermudez is a 71-year-old female. She was in bed. No distress. HEENT: Mucosa is pink and moist. Anicteric. Acyanotic. Neck: Supple. Chest: Air entry was bilaterally reduced. A few bibasilar crepitations. I did not appreciate any wheezing or rhonchi. Cardiovascular: Regular rate and rhythm. Abdomen: Soft. Extremities: No pedal edema. Patient does have some baseline intentional tremor. LABORATORY DATA: PH is 7.42, pCO2 is 53, PaO2 was 53, oxyhemoglobin was 89.7. Patient's saturation this morning was 96% on 4 L of oxygen. ASSESSMENT: 1. Acute on chronic hypercarbic respiratory failure. 2. Hypoxemia. 3. Pneumonia, improved. 4. Chronic obstructive pulmonary disease exacerbation. 5. History of sleep apnea. PLAN: The patient is clinically stable. She is going to be discharged. Follow up with Dr. Osborn and also with Dr. Young for her sleep apnea issues. field crop farmworker has also arranged for her mask and a new hose for her CPAP machine. Raissa has also brought her oxygen to go home with and she will be leaving with home health. Please refer to the details of the discharge summary done yesterday. cc: Kash Walter MD
== END 2017-03-25 17:23 | disposition home health service (06) ==
LOC: ED 12:38 → SUATTDRO 15:19 → ICU 15:19 → 3N 03-22 19:38
PROVIDERS: ATTEND Internal Medicine